=== PATIENT | female | born 1945 | race Caucasian/White ===

== ENCOUNTER → 2016-10-22 | Outpatient (CLI) | payer OTHER, MEDICARE ==
[2016-10-22 17:52] LABS: BLOOD UREA NITROGEN 23 mg/dl (7-18); BUN/CREATININE RATIO 40.5 (10-20); CALCIUM 9.3 mg/dl (8.5-10.1); CARBON DIOXIDE 26 mmol/L (21-32); CHLORIDE 110 mmol/L (98-107); CREATININE 0.57 mg/dl (0.60-1.20); GLUCOSE 93 mg/dl (70-99); POTASSIUM 4.1 mmol/L (3.5-5.1); SODIUM 144 mmol/L (136-145)
== END | disposition home or self-care (01) ==
LOC: C.LABMFLN 08:57
PROVIDERS: ATTEND Family Medicine
DX: I10 Essential (primary) hypertension (principal); E55.9 Vitamin D deficiency, unspecified

== ENCOUNTER → 2017-04-03 | Outpatient (CLI) | payer OTHER, MEDICARE ==
[2017-04-03 18:16] LABS: ALT/SGPT 22 U/L (12-78); AST/SGOT 13 U/L (15-37); BLOOD UREA NITROGEN 20 mg/dl (7-18); BUN/CREATININE RATIO 30.6 (10-20); CALCIUM 8.8 mg/dl (8.5-10.1); CARBON DIOXIDE 28 mmol/L (21-32); CHLORIDE 106 mmol/L (98-107); CREATININE 0.64 mg/dl (0.60-1.20); GLUCOSE 99 mg/dl (70-99); POTASSIUM 4.3 mmol/L (3.5-5.1); SODIUM 139 mmol/L (136-145)
[2017-04-03 18:18] LABS: ALB/GLOB RATIO 1.1 (0.9-2); ALKALINE PHOSPHATASE 118 U/L (45-117)
[2017-04-04 06:34] LABS: ESTIMATED AVERAGE GLUCOSE 128 mg/dl; HA1C FLAG Normal (Normal)
== END | disposition home or self-care (01) ==
LOC: C.LABMFLN 16:06
PROVIDERS: ATTEND Family Medicine
DX: E55.9 Vitamin D deficiency, unspecified (principal); E11.9 Type 2 diabetes mellitus without complications

== ENCOUNTER → 2017-04-19 | Outpatient (CLI) | payer OTHER, MEDICARE ==
--- NOTE | 2017-04-19 12:00 | DIAGNOSTIC IMAGING REPORT ---
CHEST 2 VIEWS ROUTINE CLINICAL HISTORY: Cough. COMPARISON STUDY: No previous studies for comparison. FINDINGS: Lung volumes are normal. No pneumothorax or pleural effusion is present. There is no consolidation to suggest pneumonia. Pulmonary vascularity is normal. Mild cardiomegaly is noted. IMPRESSION: 1. No acute cardiopulmonary findings. 2. Mild cardiomegaly. Electronically signed by: Vin Ayala M.D. 04/19/2017 11:59 AM Dictated Date/Time: 04/19/2017 11:58 AM
== END | disposition home or self-care (01) ==
LOC: C.RAD1850 11:46
PROVIDERS: ATTEND Student in an Organized Health Care Education/Training Program
DX: R05 Cough (principal)

== ENCOUNTER → 2017-05-20 | Outpatient (CLI) | payer OTHER, MEDICARE ==
--- NOTE | 2017-05-21 15:17 | MAMMOGRAPHY REPORT ---
BILATERAL DIGITAL SCREENING MAMMOGRAM TOMOSYNTHESIS WITH CAD: 05/20/2017 CLINICAL HISTORY: Routine screening. TECHNIQUE: Breast tomosynthesis in addition to standard 2D mammography was performed. Current study was also evaluated with a Computer Aided Detection (CAD) system. COMPARISON: No prior exams were available for comparison. BREAST COMPOSITION: There are scattered areas of fibroglandular density in both breasts. FINDINGS: There are scattered benign-appearing microcalcifications in the breasts. No suspicious mas s, architectural distortion or cluster of suspicious microcalcifications is seen. IMPRESSION: ACR BI-RADS CATEGORY 1: NEGATIVE There is no mammographic evidence of malignancy. A 1 year screening mammogram is recommended. The pa tient will receive written notification of the results. Approximately 10% of breast cancers are not detected with mammography. A negative mammographic report should not delay biopsy if a clinically suggestive mass is present. Lacey Hinojosa M.D. ay/:05/20/2017 16:32:31 Senior Information Systems Architect: Kelsy GALINDO(Jay)(Regan), [facility] letter sent: Normal 1/2 BI-RADS Code: ACR BI-RADS Category 1: Negative
== END | disposition home or self-care (01) ==
LOC: C.MAMM 13:28
PROVIDERS: ATTEND Nurse Practitioner Family
DX: Z13.820 Encounter for screening for osteoporosis (principal); Z12.31 Encounter for screening mammogram for malignant neoplasm of breast; M85.88 Other specified disorders of bone density and structure, other site; M85.851 Other specified disorders of bone density and structure, right thigh; M85.852 Other specified disorders of bone density and structure, left thigh

== ENCOUNTER → 2017-12-06 | Outpatient (CLI) | payer OTHER, MEDICARE ==
[2017-12-06 18:08] LABS: ALT/SGPT 26 U/L (12-78); BLOOD UREA NITROGEN 24 mg/dl (7-18); CALCIUM 8.8 mg/dl (8.5-10.1); CARBON DIOXIDE 25 mmol/L (21-32); CREATININE 0.76 mg/dl (0.60-1.20); GLUCOSE 108 mg/dl (70-99); POTASSIUM 4.2 mmol/L (3.5-5.1); SODIUM 141 mmol/L (136-145)
[2017-12-06 18:11] LABS: CHOLESTEROL 137 mg/dl (0-200); LDL CHOLESTEROL (DIRECT) 72 mg/dl
[2017-12-06 18:11] LABS: CREATININE RANDOM URINE 74.2 mg/dl
[2017-12-07 06:37] LABS: HEMOGLOBIN A1C 6.2 % (4.5-5.6)
== END | disposition home or self-care (01) ==
LOC: C.LABMFLN 12:47
PROVIDERS: ATTEND Family Medicine
DX: E78.5 Hyperlipidemia, unspecified (principal); E11.9 Type 2 diabetes mellitus without complications

== ENCOUNTER → 2018-03-07 | Outpatient (CLI) | payer OTHER, MEDICARE ==
[2018-03-07 12:56] LABS: HEMATOCRIT 36.9 % (37-47); HEMOGLOBIN 12.1 g/dL (12.0-16.0)
[2018-03-07 13:21] LABS: BLOOD UREA NITROGEN 24 mg/dl (7-18); CALCIUM 9.4 mg/dl (8.5-10.1); CARBON DIOXIDE 28 mmol/L (21-32); GLUCOSE 98 mg/dl (70-99); POTASSIUM 4.1 mmol/L (3.5-5.1); SODIUM 139 mmol/L (136-145)
== END | disposition home or self-care (01) ==
LOC: C.LABMFLN 09:48
PROVIDERS: ATTEND Family Medicine
DX: I10 Essential (primary) hypertension (principal); I48.0 Paroxysmal atrial fibrillation

== ENCOUNTER 2019-06-23 14:46 | Inpatient (IN) ==
[2019-06-23 15:42] LABS: Appearance Urine Clear (Clear); Bacteria Urine Automated Negative (Negative); Bilirubin Urine Negative (Negative); Blood Urine Negative (Negative); Color Urine Yellow; Glucose Urine UA Negative (Negative); Ketones Urine Negative (Negative); Leukocyte Esterase Urine Trace (Negative); Nitrite Urine Negative (Negative); Protein Urine Negative (Negative); RBC Urine Automated 0-4 /hpf (0-4); Specific Gravity Urine 1.014 (1.000-1.030); Urobilinogen Urine Negative (Negative)
[2019-06-23 15:50] LABS: Basophils # (auto) 0.06 K/uL (0-0.2); Basophils % (auto) 0.8 %; Eosinophils # (auto) 0.23 K/uL (0-0.5); Eosinophils % (auto) 3.1 %; Hematocrit (blood only) 34.8 % (37-47); Hemoglobin 11.3 g/dL (12.0-16.0); Immature Granulocytes # (auto) 0.04 K/uL (0.00-0.02); Immature Granulocytes % (auto) 0.5 %; Lymphocytes # (auto) 1.38 K/uL (1.2-3.4); Lymphocytes % (auto) 18.4 %; Mean Corpuscular Hemoglobin 28.1 pg (25-34); Mean Corpuscular Hgb Conc 32.5 g/dL (32-36); Mean Corpuscular Volume 86.6 fL (80-100); Mean Platelet Volume 9.8 fL (7.4-10.4); Monocytes # (auto) 0.72 K/uL (0.11-0.59); Monocytes % (auto) 9.6 %; Neutrophils # (auto) 5.07 K/uL (1.4-6.5); Neutrophils % (auto) 67.6 %; Platelet Count 358 K/uL (130-400); RDW Coefficient of Variation 14.9 % (11.5-14.5); RDW Standard Deviation 47.9 fL (36.4-46.3); Red Blood Count 4.02 M/uL (4.2-5.4)
[2019-06-23 16:08] LABS: BUN Creatinine Ratio 30.6 (10-20); Calcium 9.9 mg/dl (8.5-10.1); Creatinine Clr Calc Pharmacy 33.2 ml/min; Est GFR (African American) 39.1; Est GFR (Non-African American) 33.7; Potassium 3.8 mmol/L (3.5-5.1)
[2019-06-23 16:12] LABS: Acetaminophen < 2 ug/ml (10-30); Salicylate < 1.7 mg/dl (2.8-20)
[2019-06-23 16:16] LABS: Amphetamines+Metham, Urine Neg (Neg); Barbiturates, Urine Neg (Neg); Benzodiazepine, Urine Neg (Neg); Cocaine, Urine Neg (Neg); MDMA (Ecstacy), Urine Pos (Neg); Methadone, Urine Neg (Neg); Opiate, Urine Neg (Neg); Phencyclidine, Urine Neg (Neg)
[2019-06-23 16:18] LABS: Albumin Globulin Ratio 1.2 (0.9-2); Bilirubin,Total 0.5 mg/dl (0.2-1); Globulin 3.4 gm/dl (2.5-4.0); Thyroid Stimulating Hormone 2.69 uIu/ml (0.300-4.500); Total Protein 7.4 gm/dl (6.4-8.2)
--- NOTE | 2019-06-23 16:30 | Emergency Department Note ---
Entered by Kraen Flanagan acting as a scribe for Cabrera Holland M.D. History of Present Illness General Chief complaint: Psychiatric Symptoms/Problems Stated complaint: BIPOLAR Time Seen by Provider: 06/23/19 15:09 Source: patient History of Present Illness Onset (ago): day(s) (several) Location: head (general) Pain Consistency: + other (worsening) Quality: + other (depression) Associated symptoms: + other (positive suicidal statements of not wanting to be here; positive imagining and mother are next to her) The patient is a 73 year old female with PMHx of CKD stage 3, CAD, Diabetes, Bipolar disorder who presents to the Emergency Room with complaints of worsening depression that began several days ago. The patient states that she has been stressed out recently stating that her and her are after 53 years of marriage. She states "I wish I would just go away and never come back" and "I don't want to be here". The patient reports that she has not been getting sleep. She states that recently when she is waking up she imagines that her is next to her in bed but states that when she wakes up he is not there. The patient states that this also happens with her mother who several years ago. The patient states "nobody's here for me". Home Medications Home Medications Medication Instructions Recorded Confirmed Type nitroglycerin 0.4 mg sublingual 0.4 mg SL Q5M PRN #20 tab 01/15/19 06/23/19 Rx tablet sucralfate 1 gram tablet 1 gm PO QID tab 02/23/19 06/23/19 History amlodipine 5 mg tablet 5 mg PO BID #180 tab 02/27/19 06/23/19 Rx bupropion HCl 100 mg tablet,12 hr 100 mg PO BID #60 ea 04/08/19 06/23/19 Rx sustained-release cyanocobalamin (vitamin B-12) 1,000 mcg PO DAILY #90 tab 04/08/19 06/23/19 Rx 1,000 mcg tablet,extended release ergocalciferol (vitamin D2) 50,000 50,000 units PO .COMPLEX #12 cap 04/08/19 06/23/19 Rx unit capsule glipizide 5 mg tablet, extended 5 mg PO DAILY #30 tab 04/08/19 06/23/19 Rx release 24 hr lamotrigine 100 mg tablet 250 mg PO HS #75 tab 04/08/19 06/23/19 Rx insulin glargine 100 unit/mL (3 12 units SQ DAILY #6 ml 04/10/19 06/23/19 Rx mL) subcutaneous pen hydroxyzine pamoate 25 mg capsule 25 mg PO Q6H #30 cap 05/04/19 06/23/19 Rx pantoprazole 40 mg tablet,delayed 40 mg PO DAILY #30 tab 05/06/19 06/23/19 Rx release escitalopram oxalate 20 mg tablet 20 mg PO HS tab 06/19/19 06/23/19 History fenofibrate 160 mg PO DAILY 06/23/19 06/23/19 History gabapentin 200 mg PO HS 06/23/19 06/23/19 History losartan 100 mg PO QAM 06/23/19 06/23/19 History metoprolol succinate 100 mg PO BID 06/23/19 06/23/19 History pravastatin 20 mg PO QPM 06/23/19 06/23/19 History propranolol [Inderal LA] 60 mg PO DAILY 06/23/19 06/23/19 History ropinirole 0.25 mg PO QAM 06/23/19 06/23/19 History ropinirole 0.5 mg PO HS 06/23/19 06/23/19 History torsemide 20 mg PO DAILY 06/23/19 06/23/19 History warfarin 4 mg PO HS 06/23/19 06/23/19 History Allergies Allergy/AdvReac Type Severity Reaction Status Date / Time acetaminophen [From Vicodin] Allergy Intermediate itching Verified 06/19/19 1 3:46 hydrocodone [From Vicodin] Allergy Intermediate itching Verified 06/19/19 13:46 albuterol Allergy Unknown Verified 06/19/19 13:46 pregabalin [From Lyrica] Allergy Unknown Verified 06/19/19 13:46 quetiapine [From Seroquel] AdvReac Severe hysterical Verified 06/19/19 13:46 carbamazepine [From Tegretol] AdvReac Unknown elevated Verified 06/19/19 13:46 hepatic enzymes divalproex sodium AdvReac Unknown tremor Verified 06/19/19 13:46 [From Depakote] lithium AdvReac tremor Verified 06/19/19 13:46 trazodone AdvReac Fatigued Verified 06/19/19 13:46 Demerol TABS Allergy Unknown Uncoded 06/19/19 13:46 Past Med/Surg History Medical History Adenomatous colon polyp Bipolar disorder Coronary artery disease Diabetes mellitus Hypercholesterolemia Restless leg syndrome Sleep apnea Stage 3 chronic kidney disease due to diabetes mellitus Vitamin D deficiency Surgical History H/O cardiac catheterization H/O hysterectomy for benign disease History of incisional hernia repair Status post appendectomy Status post cholecystectomy Status post colonoscopy with polypectomy Family History Other Adopted Social History Preferred Language: Kazakh Communication Ability: Effective Sales And Marketing Analyst Required: No Beliefs That Will Affect Care: Mandaen marital status: marital status details: Current Living Situation: Alone current occupational status: retired Feels Safe at Home: Yes Smoking Status: Never smoker Second Hand Exposure: No ; Hx Alcohol Use: No Hx Substance Use: No Childhood Exposure to Second-Hand Smoke: Yes caffeine: Yes Dental Care, Regularly: Yes Physical Activity Frequency: Daily Seatbelt Use: always Sunscreen Use: Yes Review of Systems See HPI for pertinent positives & negatives. and A total of 10 systems reviewed and were otherwise negative Physical Exam Vital Signs Vital Signs - 24 hr 06/23/19 14:52 06/23/19 17:16 Temperature 36.8 C Temperature Source Oral Pulse Rate 70 Pulse Rate [Right Finger] 70 Respiratory Rate 18 18 Respiratory Effort / Characteristics Non-Labored Respiratory Depth Normal Blood Pressure 149/75 H Blood Pressure [Right Arm] 140/70 Blood Pressure Mean 99 Blood Pressure Mean [Right Arm] 93 Blood Pressure Position Sitting Pulse Oximetry 97 98 Oxygen Delivery Method Room Air Sepsis Recent Fever Within 48 Hours No Sepsis New/Unexplained Change in Mental Status No Sepsis Action Taken by Nursing No Action Required GENERAL: Tearful, anxious, crying. Awake, alert. HENT: Normocephalic, atraumatic. EYES: Normal conjunctiva. Sclera non-icteric. RESPIRATORY: Clear to auscultation. Normal respiratory effort. CARDIAC: Normal rate. Normal rhythm. Extremities warm and well perfused. GI: Soft, non-distended. No tenderness to palpation. No rebound or guarding. LOWER EXTREMITIES: Calves are equal size bilaterally and non-tender. No edema NEURO: Normal sensorium. No sensory or motor deficits noted. No facial droop. PSYCH: Passive suicidal thoughts. Denies HI or auditory/visual hallucination. Anxious, tearful. SKIN: Warm and dry. No rash or jaundice noted. Course Course 152: Past medical records reviewed. The patient was evaluated in room A8. A com plete history and physical exam was performed. 1812: I discussed the case with the psychiatric case manger after her evaluation of the patient, and she reports that the patient has been accepted to [address] [place] [address] for further evaluation. 1819: The patient will be transported to [address] [place] [address] for further evaluation. Medical Decision Making Differential Diagnosis Differential diagnoses considered include mood disorder, infection, hypoglycemia, electrolyte abnormalities, cardiac sources, intracerebral event, toxicologic, neurologic, as well as others. Medical Records Attestation: I reviewed the patient's medical records. Home Medications Current Medication List: was personally reviewed by me Laboratory Data Attestation: I reviewed the patient's lab results. Result diagrams: 06/23/19 15:34 06/23/19 15:34 Lab Results 06/23/19 06/23/19 06/23/19 Range/Units 15:16 15:16 15:34 WBC 7.50 (4.8-10.8) K/uL RBC 4.02 L (4.2-5.4) M/uL Hgb 11.3 L (12.0-16.0) g/dL Hct 34.8 L (37-47) % MCV 86.6 (80-100) fL MCH 28.1 (25-34) pg MCHC 32.5 (32-36) g/dL RDW Std Deviation 47.9 H (36.4-46.3) fL RDW Coeff of García 14.9 H (11.5-14.5) % Plt Count 358 (130-400) K/uL MPV 9.8 (7.4-10.4) fL Immature Gran % (Auto) 0.5 % Neut % (Auto) 67.6 % Lymph % (Auto) 18.4 % [place] % (Auto) 9.6 % Eos % (Auto) 3.1 % Baso % (Auto) 0.8 % Immature Gran # (Auto) 0.04 H (0.00-0.02) K/uL Neut # (Auto) 5.07 (1.4-6.5) K/uL Lymph # (Auto) 1.38 (1.2-3.4) K/uL [place] # (Auto) 0.72 H (0.11-0.59) K/uL Eos # (Auto) 0.23 (0-0.5) K/uL Baso # (Auto) 0.06 (0-0.2) K/uL Sodium (136-145) mmol/L Potassium (3.5-5.1) mmol/L Chloride (98-107) mmol/L Carbon Dioxide (21-32) mmol/L Anion Gap (3-11) BUN (7-18) mg/dl Creatinine (0.6-1.2) mg/dl Est Cr Clr Drug Dosing ml/min Est GFR ( Amer) Est GFR (Non-Af Amer) BUN/Creatinine Ratio (10-20) Glucose (70-99) mg/dl Calcium (8.5-10.1) mg/dl Total Bilirubin (0.2-1) mg/dl AST (15-37) U/L ALT (12-78) U/L Alkaline Phosphatase (45-117) U/L Total Protein (6.4-8.2) gm/dl Albumin (3.4-5.0) gm/dl Globulin (2.5-4.0) gm/dl Albumin/Globulin Ratio (0.9-2) TSH (0.300-4.500) uIu/ml Urine Color Yellow Urine Appearance Clear (Clear) Urine pH 5.0 (4.5-7.5) Ur Specific [place] 1.014 (1.000-1.030) Urine Protein Negative (Negative) Urine Glucose (UA) Negative (Negative) Urine Ketones Negative (Negative) Urine Blood Negative (Negative) Urine Nitrite Negative (Negative) Urine Bilirubin Negative (Negative) Urine Urobilinogen Negative (Negative) Ur Leukocyte Esterase Trace H (Negative) Urine WBC (Auto) 1-5 (0-5) /hpf Urine RBC (Auto) 0-4 (0-4) /hpf U Hyaline Cast (Auto) 1-5 (0-5) /lpf U Epithel Cells (Auto) 5-10 H (0-5) /lpf Urine Bacteria (Auto) Negative (Negative) Salicylates (2.8-20) mg/dl Urine Opiates Screen Neg (Neg) Ur Methadone, Qual Neg (Neg) Acetaminophen (10-30) ug/ml Urine Barbiturates Neg (Neg) Ur Phencyclidine (PCP) Neg (Neg) U Amphetamin/Meth Scrn Neg (Neg) MDMA (Ecstasy) Screen Pos H (Neg) U Benzodiazepines Scrn Neg (Neg) Ur Cocaine Metabolite Neg (Neg) U Marijuana (THC) Screen Neg (Neg) Ethyl Alcohol mg/dL (0-3) mg/dl 06/23/19 06/23/19 06/23/19 Range/Units 15:34 15:34 15:34 WBC (4.8-10.8) K/uL RBC (4.2-5.4) M/uL Hgb (12.0-16.0) g/dL Hct (37-47) % MCV (80-100) fL MCH (25-34) pg MCHC (32-36) g/dL RDW Std Deviation (36.4-46.3) fL RDW Coeff of García (11.5-14.5) % Plt Count (130-400) K/uL MPV (7.4-10.4) fL Immature Gran % (Auto) % Neut % (Auto) % Lymph % (Auto) % [place] % (Auto) % Eos % (Auto) % Baso % (Auto) % Immature Gran # (Auto) (0.00-0.02) K/uL Neut # (Auto) (1.4-6.5) K/uL Lymph # (Auto) (1.2-3.4) K/uL [place] # (Auto) (0.11-0.59) K/uL Eos # (Auto) (0-0.5) K/uL Baso # (Auto) (0-0.2) K/uL Sodium 139 (136-145) mmol/L Potassium 3.8 (3.5-5.1) mmol/L Chloride 104 (98-107) mmol/L Carbon Dioxide 27 (21-32) mmol/L Anion Gap 8.0 (3-11) BUN 46 H (7-18) mg/dl Creatinine 1.51 H (0.6-1.2) mg/dl Est Cr Clr Drug Dosing 33.2 ml/min Est GFR ( Amer) 39.1 Est GFR (Non-Af Amer) 33.7 BUN/Creatinine Ratio 30.6 H (10-20) Glucose 107 H (70-99) mg/dl Calcium 9.9 (8.5-10.1) mg/dl Total Bilirubin 0.5 (0.2-1) mg/dl AST 12 L (15-37) U/L ALT 17 (12-78) U/L Alkaline Phosphatase 59 (45-117) U/L Total Protein 7.4 (6.4-8.2) gm/dl Albumin 4.0 (3.4-5.0) gm/dl Globulin 3.4 (2.5-4.0) gm/dl Albumin/Globulin Ratio 1.2 (0.9-2) TSH 2.690 (0.300-4.500) uIu/ml Urine Color Urine Appearance (Clear) Urine pH (4.5-7.5) Ur Specific [place] (1.000-1.030) Urine Protein (Negative) Urine Glucose (UA) (Negative) Urine Ketones (Negative) Urine Blood (Negative) Urine Nitrite (Negative) Urine Bilirubin (Negative) Urine Urobilinogen (Negative) Ur Leukocyte Esterase (Negative) Urine WBC (Auto) (0-5) /hpf Urine RBC (Auto) (0-4) /hpf U Hyaline Cast (Auto) (0-5) /lpf U Epithel Cells (Auto) (0-5) /lpf Urine Bacteria (Auto) (Negative) Salicylates < 1.7 L (2.8-20) mg/dl Urine Opiates Screen (Neg) Ur Methadone, Qual (Neg) Acetaminophen < 2 L (10-30) ug/ml Urine Barbiturates (Neg) Ur Phencyclidine (PCP) (Neg) U Amphetamin/Meth Scrn (Neg) MDMA (Ecstasy) Screen (Neg) U Benzodiazepines Scrn (Neg) Ur Cocaine Metabolite (Neg) U Marijuana (THC) Screen (Neg) Ethyl Alcohol mg/dL < 3.0 (0-3) mg/dl ECG Data Attestation: I personally reviewed and interpreted this ECG as follows: Indication: + other (medical clearance ) Rate (beats per minute): 65 Rhythm: + normal sinus ECG [place]: + Normal ECG ST segments: no ST depression and no ST elevation ECG Findings: + Other (LVH); no PVCs Blood Pressure Blood Pressure Findings: Elevated blood pressure Blood Pressure Disposition: elevated BP felt to be situational MDM Narrative Patient is a 73-year-old female history of diabetes and cardiac disease as well as bipolar presenting today due to worsening depression and suicidal thoughts. Patient referred by her outpatient doctor Dr. Nelson. Patient endorses depressive thoughts but states she never harm herself. Has had passive suicidal thoughts. Denies HI. Patient does relate that occasionally she feels like there might be somebody else with her but she does not see or hear any hallucinations. Medical clearance was completed here. Labs and EKG without significant change in kidney function appears at baseline. grain manager assisted with evaluation. Referral to [facility] was made. Patient accepted for further care there for her mental health condition. Impression & Plan Suicidal ideation, Depression Discharge Plan Visit Data *Final* Discharge Date/Time: 06/23/19 18:25 Chief Complaint: Psychiatric Symptoms/Problems Stated Complaint: BIPOLAR ED Provider: Cabrera Holland Discharge Problem: Suicidal ideation, Depression Patient Disposition: Admitted As Inpatient Condition: Good Discharge Instructions Interventions: ED Discharge Assessment Last Done: 06/23/19 18:25 Discharge Problem: Depression Qualifiers: Depression Type: major depressive disorder Major depression recurrence: recurrent Active/Remission status: currently active Major depression episode severity: severe Psychotic features: without psychotic features Qualified Code(s): F33.2 - Major depressive disorder, recurrent severe without psychotic features The mukeshibe's documentation has been prepared under my direction and personally reviewed by me in its entirety. I confirm that the note above accurately reflects all work, treatment, procedures, and medical decision making performed by me.
[2019-06-23] MEDS ORDERED: BISMUTH SUBSALICYLATE PER ML OMNICELL CHARGE PO PRN (18:30)
[2019-06-23] MEDS ORDERED: ALUMINUM/MAGNESIUM SUSP 30 ML UDC PO PRN (18:30)
[2019-06-23] MEDS ORDERED: ACETAMINOPHEN 325 MG TAB PO PRN (18:30)
[2019-06-23] MEDS ORDERED: SODIUM CHLORIDE 0.65% NA SOLN 45 ML (OCEAN) PRN (18:30)
[2019-06-23] MEDS ORDERED: MAGNESIUM HYDROXIDE SUSP 30 ML UDC PO PRN (18:30)
[2019-06-23] MEDS ORDERED: NITROGLYCERIN SL 0.4 MG/TAB TAB SL PRN (18:34)
[2019-06-23] MEDS ORDERED: GLUCAGON FOR INJ 1 MG VIAL IM PRN (19:45)
[2019-06-23] MEDS ORDERED: GLUCOSE 40% GEL 15 GM TUBE PO PRN (19:45)
[2019-06-23] MEDS ORDERED: DEXTROSE 50% 50 ML SYRINGE IV PRN (19:45)
[2019-06-23] MEDS ORDERED: CARBOHYDRATES FOR HYPOGLYCEMIA PO PRN (19:45)
[2019-06-23] MEDS ORDERED: GLUCOSE 10 TABS/TUBE PO PRN (19:45)
[2019-06-23 19:55] LABS: INR 2.3 (0.9-1.1); Prothrombin Time 21.8 Seconds (9.0-12.0)
[2019-06-23] MEDS: PRAVASTATIN SOD 20 MG TAB PO SCH (20:53)
[2019-06-23] MEDS: WARFARIN SOD 4 MG TAB PO SCH (20:53)
[2019-06-23] MEDS: FENOFIBRATE NANOCRYSTALLIZED 145 MG TABLET PO SCH (20:53)
[2019-06-23] MEDS: GABAPENTIN 100 MG CAP PO SCH (20:53)
[2019-06-23] MEDS: ESCITALOPRAM OXALATE 20 MG TAB PO SCH (20:54)
[2019-06-23] MEDS: METOPROLOL SUCC 50MG EXT REL TAB PO SCH (20:54)
[2019-06-23] MEDS: lamoTRIgine 100 MG TAB PO SCH (20:54)
[2019-06-23] MEDS: ROPINIROLE HCL 0.25 MG TABLET PO SCH (20:55)
[2019-06-23] MEDS: SUCRALFATE 1 GM TAB PO SCH ×2 (20:55→21:06)
[2019-06-23] MEDS: AMLODIPINE BESYLATE 5 MG TAB PO SCH (20:55)
[2019-06-23] MEDS: INSULIN GLARGINE SOLOSTAR 100 UNITS/ML 3 ML PEN SQ SCH (20:57)
[2019-06-24 07:45] LABS: Prothrombin Time 19.3 Seconds (9.0-12.0)
[2019-06-24] MEDS: SUCRALFATE 1 GM TAB PO SCH ×4 (08:18→21:30)
[2019-06-24] MEDS: FENOFIBRATE NANOCRYSTALLIZED 145 MG TABLET PO SCH (08:18)
[2019-06-24] MEDS: LOSARTAN POTASSIUM 50 MG TAB PO SCH (08:18)
[2019-06-24] MEDS: TORSEMIDE 10 MG TAB PO SCH (08:19)
[2019-06-24] MEDS: glipiZIDE ER 2.5 MG TABCR PO SCH (08:19)
[2019-06-24] MEDS: METOPROLOL SUCC 50MG EXT REL TAB PO SCH ×2 (08:20→21:30)
[2019-06-24] MEDS: PROPRANOLOL HCL 60 MG LA CAP PO SCH (08:20)
[2019-06-24] MEDS: PANTOprazole 40 MG TAB PO SCH (08:20)
[2019-06-24] MEDS: AMLODIPINE BESYLATE 5 MG TAB PO SCH ×2 (08:20→21:30)
[2019-06-24] MEDS: ROPINIROLE HCL 0.25 MG TABLET PO SCH ×2 (08:20→21:27)
[2019-06-24] MEDS: BuPROPion SR 100 MG TABCR PO SCH ×2 (08:21→17:35)
[2019-06-24] MEDS: CYANOCOBALAMIN 500 MCG TABLET (VITAMIN B-12) PO SCH (08:21)
[2019-06-24] MEDS ORDERED: INSULIN GLARGINE SOLOSTAR 100 UNITS/ML 3 ML PEN SQ SCH (09:00)
--- NOTE | 2019-06-24 10:43 | History & Physical ---
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 Phencyclidine (PCP) U Amphetamin/Meth Scrn MDMA (Ecstasy) Screen U MDMA (Ecstasy), Quant U Benzodiazepines Scrn Ur Cocaine Metabolite U Marijuana (THC) Screen Ethyl Alcohol mg/dL Current Inpatient Medications Current Inpatient Medications: Current Inpatient Medications Al Hydrox/Mg Hydrox/Simethicone (Maalox) 30 ml PO Q4H PRN PRN Reason: GI Upset Stop: 07/23/19 18:29 Amlodipine Besylate (Norvasc) 5 mg PO BID JT Stop: 07/23/19 20:59 Last Admin: 06/24/19 08:20 Dose: 5 mg Documented by: Bupropion HCl (Wellbutrin-Sr) 100 mg PO BIDM JT Stop: 07/24/19 07:59 Last Admin: 06/24/19 08:21 Dose: 100 mg Documented by: Cyanocobalamin (Vitamin B-12) 1,000 mcg PO DAILY JT Stop: 07/24/19 08:59 Last Admin: 06/24/19 08:21 Dose: 1,000 mcg Documented by: Dextrose (Dextrose 50%) 25 - 50 ml IV UD PRN; Protocol PRN Reason: Hypoglycemia Protocol Stop: 07/23/19 19:44 Ergocalciferol (Vitamin D2) 50,000 units PO Mo@0900 [facility] Stop: 07/29/19 08:59 Escitalopram Oxalate (Lexapro Tab) 20 mg PO HS JT Stop: 07/23/19 20:59 Last Admin: 06/23/19 20:54 Dose: 20 mg Documented by: Fenofibrate (Tricor) 145 mg PO DAILY JT Stop: 07/23/19 19:59 Last Admin: 06/24/19 08:18 Dose: 145 mg Documented by: Gabapentin (Neurontin) 200 mg PO HS [facility] Stop: 07/23/19 20:59 Last Admin: 06/23/19 20:53 Dose: 200 mg Documented by: Glipizide (Glucotrol Extended Rel) 5 mg PO QDB JT Stop: 07/24/19 08:59 Last Admin: 06/24/19 08:19 Dose: 5 mg Documented by: Glucagon (Glucagen) 1 mg IM UD PRN; Protocol PRN Reason: Hypoglycemia Protocol Stop: 07/23/19 19:44 Glucose (Glucose 40%) 15 - 30 gm PO UD PRN; Protocol PRN Reason: Hypoglycemia Protocol Stop: 07/23/19 19:44 Glucose (Dex4 Glucose) 4 - 8 tabs PO UD PRN; Protocol PRN Reason: Hypoglycemia Protocol Stop: 07/23/19 19:44 Hydroxyzine HCl (Vistaril) 50 mg PO HSZ PRN PRN Reason: Insomnia Stop: 07/23/19 18:29 Hydroxyzine HCl (Vistaril) 25 mg PO Q4H PRN PRN Reason: Anxiety Stop: 07/23/19 21:28 Insulin Glargine (Lantus Solostar Pen) 12 units SQ QPM JT Stop: 07/23/19 20:59 Last Admin: 06/23/19 20:57 Dose: 12 units Documented by: Lamotrigine (Lamictal) 250 mg PO HS [facility] Stop: 07/23/19 20:59 Last Admin: 06/23/19 20:54 Dose: 250 mg Documented by: Losartan Potassium (Cozaar) 100 mg PO QAM [facility] Stop: 07/24/19 08:59 Last Admin: 06/24/19 08:18 Dose: 100 mg Documented by: Magnesium Hydroxide (Milk Of Magnesia) 30 ml PO DAILY PRN PRN Reason: Constipation Stop: 07/23/19 18:29 Metoprolol Succinate (Toprol Xl) 100 mg PO BID [facility] Stop: 07/23/19 20:59 Last Admin: 06/24/19 08:20 Dose: 100 mg Documented by: Miscellaneous (Carbohydrates For Hypoglycemia) 15 - 30 gm PO UD PRN PRN Reason: Hypoglycemia Treatment Stop: 07/23/19 19:44 Nitroglycerin (Nitrostat) 0.4 mg SL Q5M PRN PRN Reason: chest pain Stop: 07/23/19 18:33 Pantoprazole Sodium (Protonix) 40 mg PO DAILY [facility] Stop: 07/24/19 08:59 Last Admin: 06/24/19 08:20 Dose: 40 mg Documented by: Pravastatin Sodium (Pravachol) 20 mg PO QPM JT Stop: 07/23/19 20:59 Last Admin: 06/23/19 20:53 Dose: 20 mg Documented by: Propranolol HCl (Inderal La) 60 mg PO DAILY JT Stop: 07/24/19 08:59 Last Admin: 06/24/19 08:20 Dose: 60 mg Documented by: Ropinirole HCl (Requip) 0.25 mg PO QAM JT Stop: 07/24/19 08:59 Last Admin: 06/24/19 08:20 Dose: 0.25 mg Documented by: Ropinirole HCl (Requip) 0.5 mg PO HS [facility] Stop: 07/23/19 20:59 Last Admin: 06/23/19 20:55 Dose: 0.5 mg Documented by: Sodium Chloride ([place] Nasal) 1 - 2 sprays NA PRN PRN PRN Reason: Nasal Dryness/Congestion Stop: 07/23/19 18:29 Sucralfate (Carafate Tab) 1 gm PO ACHS JT Stop: 07/23/19 20:59 Last Admin: 06/24/19 08:18 Dose: 1 gm Documented by: Torsemide (Demadex) 20 mg PO DAILY JT Stop: 07/24/19 08:59 Last Admin: 06/24/19 08:19 Dose: 20 mg Documented by: Warfarin Sodium (Coumadin) 4 mg PO HS JT Stop: 07/23/19 20:59 Last Admin: 06/23/19 20:53 Dose: 4 mg Documented by:
[2019-06-24] MEDS: GABAPENTIN 100 MG CAP PO SCH (21:27)
[2019-06-24] MEDS: lamoTRIgine 100 MG TAB PO SCH (21:27)
[2019-06-24] MEDS: ESCITALOPRAM OXALATE 20 MG TAB PO SCH (21:27)
[2019-06-24] MEDS: WARFARIN SOD 4 MG TAB PO SCH (21:29)
[2019-06-24] MEDS: PRAVASTATIN SOD 20 MG TAB PO SCH (21:30)
[2019-06-24] MEDS: INSULIN GLARGINE SOLOSTAR 100 UNITS/ML 3 ML PEN SQ SCH (21:32)
[2019-06-25 06:47] LABS: INR 2.2 (0.9-1.1); Prothrombin Time 21.1 Seconds (9.0-12.0)
[2019-06-25] MEDS: TORSEMIDE 10 MG TAB PO SCH (08:54)
[2019-06-25] MEDS: LOSARTAN POTASSIUM 50 MG TAB PO SCH (08:54)
[2019-06-25] MEDS: SUCRALFATE 1 GM TAB PO SCH ×4 (08:54→20:49)
[2019-06-25] MEDS: glipiZIDE ER 2.5 MG TABCR PO SCH (08:54)
[2019-06-25] MEDS: FENOFIBRATE NANOCRYSTALLIZED 145 MG TABLET PO SCH (08:55)
[2019-06-25] MEDS: PANTOprazole 40 MG TAB PO SCH (08:55)
[2019-06-25] MEDS: AMLODIPINE BESYLATE 5 MG TAB PO SCH ×2 (08:55→20:43)
[2019-06-25] MEDS: ROPINIROLE HCL 0.25 MG TABLET PO SCH ×2 (08:55→20:48)
[2019-06-25] MEDS: METOPROLOL SUCC 50MG EXT REL TAB PO SCH ×2 (08:55→20:44)
[2019-06-25] MEDS: PROPRANOLOL HCL 60 MG LA CAP PO SCH (08:55)
[2019-06-25] MEDS: CYANOCOBALAMIN 500 MCG TABLET (VITAMIN B-12) PO SCH (08:56)
[2019-06-25] MEDS: BuPROPion SR 100 MG TABCR PO SCH ×2 (08:56→17:54)
--- NOTE | 2019-06-25 13:06 | Psychiatric Progress Note ---
Date of Service June 25, 2019 Impression / Recommendations Impression 73-year-old female with a history of bipolar disorder, generalized anxiety disorder, cognitive disorder NOS, and multiple medical problems who presents with decompensated mood and anxiety in the context of feelings of abandonment after she and her 2 years ago. He now has a new girlfriend, which has been the predominant trigger for her recent mood symptoms, and she has additional stressors including financial, housing, and transportation. She has been isolating at home, reports poor social supports, and her multiple medical conditions have been deteriorating as well. She descr ibes frequent abrupt mood changes, crying spells, poor self-esteem, loneliness, hopelessness, and a wish to be "gone." She has struggled with loss, both the of her mother and separation in her marriage, and borderline and dependent traits have been noted. She does have a good alliance with her therapist whom she has been seeing for years, and would benefit from increased supports in a plan to increase structure and socialization. She elected to retire this past spring as her symptoms were making it difficult for her to function at work, and although anxiety initially improved, she is now struggling in part due to the lack of social interaction. She has cognitive impairment as well which worsens when emotionally distraught, and has been unable to care for herself at home, missing doses of medications, displaying memory problems, and although recognizes she is not safe to drive, drove from [place] to [place]. Inpatient treatment is medically necessary due to the severity of her symptoms and risk for harm if discharged prematurely. (1) Bipolar disorder: 06/24 - Continue escitalopram 20 mg, lamotrigine 250 mg at bedtime, and bupropion SR 100 mg twice daily. She was recently switched from citalopram to escitalopram after discussion with her PCP, due to cardiac risk. -Have considered alternative mood stabilizers/medications to target bipolar depression including lithium and atypical antipsychotics, but concerns include multiple unstable medical comorbidities, difficulties with medication adherence, and cognitive impairment. She had worsening tremor on lithium, and side effects with aripiprazole and quetiapine. She has not had a trial of lurasidone, which would be reasonable to consider. I do think there is an [place] II component to her mood symptoms as well, I would like to try addressing current decompensation through nonpharmacologic methods prior to changing medications due to aforementioned concerns. -Care coordinated with her outpatient therapist, Annette Rousseau -next appointment is 07/01/2019 at 10 AM. Recommend referral for a blended case management, to increase supports in her area, and explore options for transportation. 06/25 -Long-standing bipolar diagnosis. No med changes admission and will continue to monitor for another 24 hours before we consider additional pharmacotherapy. Patient unfortunately is a fairly poor historian guarding prior psychiatric treatment. I agree with Dr. Nelson that he does appear likely a long-standing cluster B personality component to her mood instability and feelings of abandonment likely recently exacerbated related to her 's new relationship (2) Generalized anxiety disorder: 06/24 -continue SSRI and hydroxyzine 25 mg 3 times daily as needed anxiety. Work on healthy coping skills and ways to manage anxiety. She has benefited from doing daily devotion/journaling before. (3) Cognitive disorder: 06/24 -has seen a neurologist, Dr. Mayen, in [place]. Had a brain MRI which showed microvascular change, EEG showed evidence of encephalopathy. Cognitive function clearly worsens when she is decompensated psychiatrically, and she was previously on benzodiazepines which have since been tapered off. Her initial MOCA in 11/2018 was 17/30, and in 12/2018 was 23/30. Centrally acting medications had been reduced and anxiety was improved at that time. -Will recheck MOCA here once anxiety is under better control. -Patient agrees not to drive until she has stabilized both medically and psychiatrically. 06/25 -Patient reports she is being followed by neurology in [place]. Presently I am uncertain of most recent neuroimaging results however it appears she has known history of microvascular changes. She certainly has risk factors for cerebrovascular disease. Lower extremity movements have a choreiform character. Consider possibility of late onset [place]'s chorea particularly as family history is unknown related to symptom cluster of chorea, personality change, mood lability, executive dysfunction, mild cognitive impairment. Would be helpful to review if evidence of caudate atrophy on imaging. - requip dose is low however, in combination w/ long standing wellbutrin, consider possibility of contribution to problematic activation (4) Accentuation of personality traits: Borderline and dependent traits. Work on healthy coping skills (5) Hypercholesterolemia: Continue home dose of TriCor (6) Diabetes mellitus: 06/24 - Diabetic diet, continue insulin, consult diabetic pharmacist and educator at patient's request (7) Restless leg syndrome: Continue Requip and gabapentin at bedtime (8) Vitamin D deficiency: Continue supplementation (9) Coronary artery disease: Continue metoprolol XL, Norvasc, propanolol, and Cozaar (10) Warfarin anticoagulation: Continue home dose of Coumadin, and check INR daily. 2.3 on admission, 2.0 today. 06/25 - INR 2.2 Inventory Assets Strengths: Supportive family, has outpatient providers Needs: Increase supports and structure Risk Factors Assessment Male: No : Yes Do You Have Access To A Gun?: No Health Problems: Yes Mental Health Diagnoses: Yes Substance Use Disorders: No Previous Attempt: Yes Family History of Suicide: No Previous Psychiatric Hospitalization: Yes Hopelessness: Yes Smoker: No Protective Factors Assessment Islam Beliefs: Yes : Yes (But and has a new girlfriend) Responsible for Young Children: No Employed: No Stable Relationships: No Supportive Family: Yes Good Rapport with Provider: Yes Interval History Chief Complaint "I do not want to be here. It hurts too much". Review of Systems Sleep Information Total Hours of Sleep: 7.75 Sleep Comments: pt on q-15 minute checks Meal Information Percent Meal Consumed - Breakfast: 100 Percent Meal Consumed - Lunch: 100 Percent Meal Consumed - Dinner: 80 Nutrition Comment: per meal log Subjective Subjective Patient was seen & assessed and interval progress reviewed with treatment team. Patient was admitted on a 201. She is an outpatient of my colleague, Dr. Nelson. No medication changes made at time of admission. Dr. Nelson indicated desire to see if conservative intervention would be sufficient as patient has demonstrated some improvement in her cognitive functioning with recent tapering of sedating medication. As per HPI on admission, patient is having more difficulty with memory and family has expressed concern for her ability to care for herself at home. Patient describes feeling "pretty bad" today and demonstrates lability of affect and abrupt tearfulness. She describes a long history of mood instability. She sounds to have a history of difficult childhood experience, adopted as an and raised by parents who drank excessively and told her that she was not their child. More recently she has been emotionally distressed by the fact that her whom she has been from him for at least 2 years, has a new relationship. She struggles to recall her medication treatment history. She admits to difficulties with her memory. Has been seeing Dr. Blankenship from neurology in [place]. Believes she may have had recent neuroimaging. Uncertain of diagnosis. Reports history of tremor, restless leg syndrome, and history of stroke. She denies a history of auditory, visual, or tactile hallucinations however she does describe a feeling that someone is lying in bed with her upon first waking. She acknowledges thoughts of not wanting to be alive secondary to her emotional pain but denies plan or intent for self-harm at present. Physical Exam Psychiatric Orientation: alert and cooperative Apperance: appropriately dressed and appropriately groomed Eye Contact: + fair eye contact Persistent choreiform movements of the feet Speech: no pressured speech (+overproductive) Affect: + depressed affect, + anxious affect, + tearful affect and + labile affect Mood: + depressed mood and + anxious mood Thought Process: + perseveration; no thought blocking and no flight of ideas Thought Content: + preoccupation; no delusions Suicidal Thoughts: denies suicidal plan and denies suicidal intent; + reports suicidal thoughts Homicidal Thoughts: denies homicidal thoughts Hallucinations: no auditory hallucinations, no visual hallucinations and no tactile hallucinations Cognition: + recent memory not intact Insight: + fair insight Judgement: + fair judgement Vital Signs (Past 24 Hours) Last Vital Signs Temp 36.7 C 06/25/19 06:00 Pulse 80 06/25/19 06:00 Resp 18 06/25/19 06:00 BP 138/84 06/25/19 06:00 Pulse Ox 98 06/23/19 17:16 Results & Data Laboratory Results Laboratory Results - last 24 hr 06/24/19 06/24/19 06/24/19 12:40 17:22 20:56 PT INR POC Glucose 184 H 196 H 135 H 06/25/19 06/25/19 06/25/19 06:26 08:37 12:06 PT 21.1 H INR 2.2 H POC Glucose 97 200 H Current Inpatient Medications Current Inpatient Medications: Current Inpatient Medications Al Hydrox/Mg Hydrox/Simethicone (Maalox) 30 ml PO Q4H PRN PRN Reason: GI Upset Stop: 07/23/19 18:29 Amlodipine Besylate (Norvasc) 5 mg PO BID JT Stop: 07/23/19 20:59 Last Admin: 06/25/19 08:55 Dose: 5 mg Documented by: Bupropion HCl (Wellbutrin-Sr) 100 mg PO BIDM [facility] Stop: 07/24/19 07:59 Last Admin: 06/25/19 08:56 Dose: 100 mg Documented by: Cyanocobalamin (Vitamin B-12) 1,000 mcg PO DAILY JT Stop: 07/24/19 08:59 Last Admin: 06/25/19 08:56 Dose: 1,000 mcg Documented by: Dextrose (Dextrose 50%) 25 - 50 ml IV UD PRN; Protocol PRN Reason: Hypoglycemia Protocol Stop: 07/23/19 19:44 Ergocalciferol (Vitamin D2) 50,000 units PO Mo@0900 [facility] Stop: 07/29/19 08:59 Escitalopram Oxalate (Lexapro Tab) 20 mg PO HS [facility] Stop: 07/23/19 20:59 Last Admin: 06/24/19 21:27 Dose: 20 mg Documented by: Fenofibrate (Tricor) 145 mg PO DAILY [facility] Stop: 07/23/19 19:59 Last Admin: 06/25/19 08:55 Dose: 145 mg Documented by: Gabapentin (Neurontin) 200 mg PO HS [facility] Stop: 07/23/19 20:59 Last Admin: 06/24/19 21:27 Dose: 200 mg Documented by: Glipizide (Glucotrol Extended Rel) 5 mg PO QDB [facility] Stop: 07/24/19 08:59 Last Admin: 06/25/19 08:54 Dose: 5 mg Documented by: Glucagon (Glucagen) 1 mg IM UD PRN; Protocol PRN Reason: Hypoglycemia Protocol Stop: 07/23/19 19:44 Glucose (Glucose 40%) 15 - 30 gm PO UD PRN; Protocol PRN Reason: Hypoglycemia Protocol Stop: 07/23/19 19:44 Glucose (Dex4 Glucose) 4 - 8 tabs PO UD PRN; Protocol PRN Reason: Hypoglycemia Protocol Stop: 07/23/19 19:44 Hydroxyzine HCl (Vistaril) 50 mg PO HSZ PRN PRN Reason: Insomnia Stop: 07/23/19 18:29 Hydroxyzine HCl (Vistaril) 25 mg PO Q4H PRN PRN Reason: Anxiety Stop: 07/23/19 21:28 Last Admin: 06/25/19 12:10 Dose: 25 mg Documented by: Insulin Glargine (Lantus Solostar Pen) 12 units SQ QPM JT Stop: 07/23/19 20:59 Last Admin: 06/24/19 21:32 Dose: 12 units Documented by: Lamotrigine (Lamictal) 250 mg PO HS JT Stop: 07/23/19 20:59 Last Admin: 06/24/19 21:27 Dose: 250 mg Documented by: Losartan Potassium (Cozaar) 100 mg PO QAM JT Stop: 07/24/19 08:59 Last Admin: 06/25/19 08:54 Dose: 100 mg Documented by: Magnesium Hydroxide (Milk Of Magnesia) 30 ml PO DAILY PRN PRN Reason: Constipation Stop: 07/23/19 18:29 Metoprolol Succinate (Toprol Xl) 100 mg PO BID [facility] Stop: 07/23/19 20:59 Last Admin: 06/25/19 08:55 Dose: 100 mg Documented by: Miscellaneous (Carbohydrates For Hypoglycemia) 15 - 30 gm PO UD PRN PRN Reason: Hypoglycemia Treatment Stop: 07/23/19 19:44 Nitroglycerin (Nitrostat) 0.4 mg SL Q5M PRN PRN Reason: chest pain Stop: 07/23/19 18:33 Pantoprazole Sodium (Protonix) 40 mg PO DAILY [facility] Stop: 07/24/19 08:59 Last Admin: 06/25/19 08:55 Dose: 40 mg Documented by: Pravastatin Sodium (Pravachol) 20 mg PO QPM JT Stop: 07/23/19 20:59 Last Admin: 06/24/19 21:30 Dose: 20 mg Documented by: Propranolol HCl (Inderal La) 60 mg PO DAILY JT Stop: 07/24/19 08:59 Last Admin: 06/25/19 08:55 Dose: 60 mg Documented by: Ropinirole HCl (Requip) 0.25 mg PO QAM [facility] Stop: 07/24/19 08:59 Last Admin: 06/25/19 08:55 Dose: 0.25 mg Documented by: Ropinirole HCl (Requip) 0.5 mg PO HS [facility] Stop: 07/23/19 20:59 Last Admin: 06/24/19 21:27 Dose: 0.5 mg Documented by: Sodium Chloride ([place] Nasal) 1 - 2 sprays NA PRN PRN PRN Reason: Nasal Dryness/Congestion Stop: 07/23/19 18:29 Sucralfate (Carafate Tab) 1 gm PO ACHS JT Stop: 07/23/19 20:59 Last Admin: 06/25/19 12:10 Dose: 1 gm Documented by: Torsemide (Demadex) 20 mg PO DAILY JT Stop: 07/24/19 08:59 Last Admin: 06/25/19 08:54 Dose: 20 mg Documented by: Warfarin Sodium (Coumadin) 4 mg PO HS JT Stop: 07/23/19 20:59 Last Admin: 06/24/19 21:29 Dose: 4 mg Documented by: Mental Health & Subst Abuse Tx Psychiatrist [facility] - Dr. Nelson Psychiatrist's Psychiatric Appointment Comment: [address], [address], [place] Therapist Name of Therapist: Annette Cash, private practice in [place], [facility] next Saturday Therapist's Date of Therapist Appointment: 07/01/19 Therapy Appointment Comment: [address], [address], [place] [address] Decorating Kiln Operator Name of Decorating Kiln Operator: Open to referral Post Discharge Appointments Primary Care Physician Name Of Family Doctor: Dr. Bird, [place] Primary Care Provider Appointment Comment: [address] [place] [id number] Contact Information Discharge Discharge [address]: [address] [place] [address] (1) Bipolar disorder Active/Remission status: currently active Current bipolar episode type: depressed Current episode severity: severe Psychotic features: without psychotic features Qualified Code(s): F31.4 - Bipolar disorder, current episode depressed, severe, without psychotic features
[2019-06-25] MEDS: GABAPENTIN 100 MG CAP PO SCH (20:48)
[2019-06-25] MEDS: ESCITALOPRAM OXALATE 20 MG TAB PO SCH (20:49)
[2019-06-25] MEDS: WARFARIN SOD 4 MG TAB PO SCH (20:50)
[2019-06-25] MEDS: PRAVASTATIN SOD 20 MG TAB PO SCH (20:50)
[2019-06-25] MEDS: lamoTRIgine 100 MG TAB PO SCH (20:52)
[2019-06-25] MEDS: INSULIN GLARGINE SOLOSTAR 100 UNITS/ML 3 ML PEN SQ SCH (20:53)
[2019-06-26 07:17] LABS: INR 2.1 (0.9-1.1); Prothrombin Time 20.6 Seconds (9.0-12.0)
[2019-06-26] MEDS: SUCRALFATE 1 GM TAB PO SCH ×4 (08:58→21:40)
[2019-06-26] MEDS: LOSARTAN POTASSIUM 50 MG TAB PO SCH (08:58)
[2019-06-26] MEDS: TORSEMIDE 10 MG TAB PO SCH (08:58)
[2019-06-26] MEDS: ROPINIROLE HCL 0.25 MG TABLET PO SCH ×2 (08:59→21:43)
[2019-06-26] MEDS: glipiZIDE ER 2.5 MG TABCR PO SCH (08:59)
[2019-06-26] MEDS: PANTOprazole 40 MG TAB PO SCH (08:59)
[2019-06-26] MEDS: AMLODIPINE BESYLATE 5 MG TAB PO SCH ×2 (08:59→21:38)
[2019-06-26] MEDS: METOPROLOL SUCC 50MG EXT REL TAB PO SCH ×2 (08:59→21:39)
[2019-06-26] MEDS: PROPRANOLOL HCL 60 MG LA CAP PO SCH (08:59)
[2019-06-26] MEDS: CYANOCOBALAMIN 500 MCG TABLET (VITAMIN B-12) PO SCH (09:00)
[2019-06-26] MEDS: FENOFIBRATE NANOCRYSTALLIZED 145 MG TABLET PO SCH (09:00)
[2019-06-26] MEDS: BuPROPion SR 100 MG TABCR PO SCH ×2 (09:00→17:33)
--- NOTE | 2019-06-26 14:46 | Psychiatric Progress Note ---
Date of Service June 26, 2019 Impression / Recommendations Impression 73-year-old female with a history of bipolar disorder, generalized anxiety disorder, cognitive disorder NOS, and multiple medical problems who presents with decompensated mood and anxiety in the context of feelings of abandonment after she and her 2 years ago. He now has a new girlfriend, which has been the predominant trigger for her recent mood symptoms, and she has additional stressors including financial, housing, and transportation. She has been isolating at home, reports poor social supports, and her multiple medical conditions have been deteriorating as well. She descr ibes frequent abrupt mood changes, crying spells, poor self-esteem, loneliness, hopelessness, and a wish to be "gone." She has struggled with loss, both the of her mother and separation in her marriage, and borderline and dependent traits have been noted. She does have a good alliance with her therapist whom she has been seeing for years, and would benefit from increased supports in a plan to increase structure and socialization. She elected to retire this past spring as her symptoms were making it difficult for her to function at work, and although anxiety initially improved, she is now struggling in part due to the lack of social interaction. She has cognitive impairment as well which worsens when emotionally distraught, and has been unable to care for herself at home, missing doses of medications, displaying memory problems, and although recognizes she is not safe to drive, drove from [place] to [place]. Inpatient treatment is medically necessary due to the severity of her symptoms and risk for harm if discharged prematurely. (1) Bipolar disorder: 06/24 - Continue escitalopram 20 mg, lamotrigine 250 mg at bedtime, and bupropion SR 100 mg twice daily. She was recently switched from citalopram to escitalopram after discussion with her PCP, due to cardiac risk. -Have considered alternative mood stabilizers/medications to target bipolar depression including lithium and atypical antipsychotics, but concerns include multiple unstable medical comorbidities, difficulties with medication adherence, and cognitive impairment. She had worsening tremor on lithium, and side effects with aripiprazole and quetiapine. She has not had a trial of lurasidone, which would be reasonable to consider. I do think there is an Calvin II component to her mood symptoms as well, I would like to try addressing current decompensation through nonpharmacologic methods prior to changing medications due to aforementioned concerns. -Care coordinated with her outpatient therapist, Annette Rousseau -next appointment is 07/01/2019 at 10 AM. Recommend referral for a blended case management, to increase supports in her area, and explore options for transportation. 06/25 -Long-standing bipolar diagnosis. No med changes admission and will continue to monitor for another 24 hours before we consider additional pharmacotherapy. Patient unfortunately is a fairly poor historian guarding prior psychiatric treatment. I agree with Dr. Nelson that he does appear likely a long-standing cluster B personality component to her mood instability and feelings of abandonment likely recently exacerbated related to her 's new relationship 06/26 -Due to the severity of her emotional distress, will trial olanzapine 1.25 mg twice daily taken mid day and bedtime for additional mood stabilization/augmentation and off label anxiolysis. This agent was chosen for lower risk for EPS, calming effect profile, and likely quick onset of action. Unfavorably it as a relatively high risk of metabolic side effects and patient does have a history of diabetes and dyslipidemia which was discussed in detail with the patient and she was accepting of this risk. If she does gain weight on the olanzapine this potentially could be a temporary intervention to help her during this transitional time. (2) Generalized anxiety disorder: 06/24 -continue SSRI and hydroxyzine 25 mg 3 times daily as needed anxiety. Work on healthy coping skills and ways to manage anxiety. She has benefited from doing daily devotion/journaling before. (3) Cognitive disorder: 06/24 -has seen a neurologist, Dr. Mayen, in [place]. Had a brain MRI which showed microvascular change, EEG showed evidence of encephalopathy. Cognitive function clearly worsens when she is decompensated psychiatrically, and she was previously on benzodiazepines which have since been tapered off. Her initial MOCA in 11/2018 was 17/30, and in 12/2018 was 23/30. Centrally acting medications had been reduced and anxiety was improved at that time. -Will recheck MOCA here once anxiety is under better control. -Patient agrees not to drive until she has stabilized both medically and psychiatrically. 06/25 -Patient reports she is being followed by neurology in [place]. Presently I am uncertain of most recent neuroimaging results however it appears she has known history of microvascular changes. She certainly has risk factors for cerebrovascular disease. Lower extremity movements have a choreiform character. Consider possibility of late onset Dianne's chorea particularly as family history is unknown related to symptom cluster of chorea, personality change, mood lability, executive dysfunction, mild cognitive impairment. Would be helpful to review if evidence of caudate atrophy on imaging. 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 Work on healthy coping skills (5) Hypercholesterolemia: Continue home dose of TriCor (6) Diabetes mellitus: 06/24 - Diabetic diet, continue insulin, consult diabetic pharmacist and educator at patient's request 06/26 - sugars stable (7) Restless leg syndrome: Continue Requip and gabapentin at bedtime (8) Vitamin D deficiency: Continue supplementation (9) Coronary artery disease: Continue metoprolol XL, Norvasc, propanolol, and Cozaar (10) Warfarin anticoagulation: Continue home dose of Coumadin, and check INR daily. 2.3 on admission, 2 .0 today. 06/25 - INR 2.2 06/26 - INR 2.1 Inventory Assets Strengths: Supportive family, has outpatient providers Needs: Increase supports and structure Risk Factors Assessment Male: No : Yes Do You Have Access To A Gun?: No Health Problems: Yes Mental Health Diagnoses: Yes Substance Use Disorders: No Previous Attempt: Yes Family History of Suicide: No Previous Psychiatric Hospitalization: Yes Hopelessness: Yes Smoker: No Protective Factors Assessment Pentecostal Beliefs: Yes : Yes (But and has a new girlfriend) Responsible for Young Children: No Employed: No Stable Relationships: No Supportive Family: Yes Good Rapport with Provider: Yes Interval History Chief Complaint "I think I'm even worse. I don't want to feel this way". Review of Systems Notes Motor restlessness persists Sleep Information Total Hours of Sleep: 10 Sleep Comments: pt on q-15 minute checks Meal Information Percent Meal Consumed - Breakfast: 40 Percent Meal Consumed - Lunch: 100 Percent Meal Consumed - Dinner: 100 Nutrition Comment: per meal log Subjective Subjective Patient was seen & assessed and interval progress reviewed with treatment team. Patient remains labile, easily distressed. Nursing staff have observed frequent thought derailment conversationally. Compliant with care and meds. Per social work, family considering moving patient to daughter's property where her also lives. They are working on power of deputy prosecuting attorney paperwork for her as well. She appears, at least preliminarily, accepting of this. She reports no improvement in mood and perhaps even worse since yesterday. States that she cannot cope with her feelings. Available outpatient records again reviewed and I see that she has recently been tapered from Ativan and BuSpar and converted from Celexa to Lexapro in the outpatient setting. She requests additional pharmacotherapy to help with her emotional distress and states that she is willing to trial another atypical antipsychotic despite risk for weight gain and associated metabolic risks after discussion of several treatment options. Physical Exam Psychiatric Orientation: alert and cooperative Apperance: appropriately dressed and appropriately groomed Eye Contact: good eye contact Motor Behavior: + abnormal motor movements Speech: + loud speech Affect: + tearful affect and + labile affect Mood: + depressed mood and + anxious mood Thought Process: + perseveration Thought Content: + preoccupation, + hopelessness and + worthlessness Suicidal Thoughts: + reports suicidal thoughts Homicidal Thoughts: denies homicidal thoughts Hallucinations: no auditory hallucinations and no visual hallucinations Cognition: + recent memory not intact and + attention not intact Insight: + limited insight Judgement: + impaired judgement Vital Signs (Past 24 Hours) Last Vital Signs Temp 36.7 C 06/26/19 06:53 Pulse 64 06/26/19 06:55 Resp 18 06/26/19 06:53 BP 152/80 H 06/26/19 06:55 Pulse Ox 98 06/23/19 17:16 Results & Data Laboratory Results Laboratory Results - last 24 hr 06/25/19 06/26/19 06/26/19 20:37 06:50 08:35 PT 20.6 H INR 2.1 H POC Glucose 158 H 77 06/26/19 12:40 PT INR POC Glucose 173 H Current Inpatient Medications Current Inpatient Medications: Current Inpatient Medications Al Hydrox/Mg Hydrox/Simethicone (Maalox) 30 ml PO Q4H PRN PRN Reason: GI Upset Stop: 07/23/19 18:29 Amlodipine Besylate (Norvasc) 5 mg PO BID JT Stop: 07/23/19 20:59 Last Admin: 06/26/19 08:59 Dose: 5 mg Documented by: Bupropion HCl (Wellbutrin-Sr) 100 mg PO BIDM [facility] Stop: 07/24/19 07:59 Last Admin: 06/26/19 09:00 Dose: 100 mg Documented by: Cyanocobalamin (Vitamin B-12) 1,000 mcg PO DAILY JT Stop: 07/24/19 08:59 Last Admin: 06/26/19 09:00 Dose: 1,000 mcg Documented by: Dextrose (Dextrose 50%) 25 - 50 ml IV UD PRN; Protocol PRN Reason: Hypoglycemia Protocol Stop: 07/23/19 19:44 Ergocalciferol (Vitamin D2) 50,000 units PO Mo@0900 [facility] Stop: 07/29/19 08:59 Escitalopram Oxalate (Lexapro Tab) 20 mg PO HS [facility] Stop: 07/23/19 20:59 Last Admin: 06/25/19 20:49 Dose: 20 mg Documented by: Fenofibrate (Tricor) 145 mg PO DAILY [facility] Stop: 07/23/19 19:59 Last Admin: 06/26/19 09:00 Dose: 145 mg Documented by: Gabapentin (Neurontin) 200 mg PO HS [facility] Stop: 07/23/19 20:59 Last Admin: 06/25/19 20:48 Dose: 200 mg Documented by: Glipizide (Glucotrol Extended Rel) 5 mg PO QDB [facility] Stop: 07/24/19 08:59 Last Admin: 06/26/19 08:59 Dose: 5 mg Documented by: Glucagon (Glucagen) 1 mg IM UD PRN; Protocol PRN Reason: Hypoglycemia Protocol Stop: 07/23/19 19:44 Glucose (Glucose 40%) 15 - 30 gm PO UD PRN; Protocol PRN Reason: Hypoglycemia Protocol Stop: 07/23/19 19:44 Glucose (Dex4 Glucose) 4 - 8 tabs PO UD PRN; Protocol PRN Reason: Hypoglycemia Protocol Stop: 07/23/19 19:44 Hydroxyzine HCl (Vistaril) 50 mg PO HSZ PRN PRN Reason: Insomnia Stop: 07/23/19 18:29 Last Admin: 06/25/19 20:01 Dose: 50 mg Documented by: Hydroxyzine HCl (Vistaril) 25 mg PO Q4H PRN PRN Reason: Anxiety Stop: 12/26/19 21:28 Last Admin: 06/25/19 18:31 Dose: 25 mg Documented by: Insulin Glargine (Lantus Solostar Pen) 12 units SQ QPM JT Stop: 07/23/19 20:59 Last Admin: 06/25/19 20:53 Dose: 12 units Documented by: Lamotrigine (Lamictal) 250 mg PO HS JT Stop: 07/23/19 20:59 Last Admin: 06/25/19 20:52 Dose: 250 mg Documented by: Losartan Potassium (Cozaar) 100 mg PO QAM JT Stop: 07/24/19 08:59 Last Admin: 06/26/19 08:58 Dose: 100 mg Documented by: Magnesium Hydroxide (Milk Of Magnesia) 30 ml PO DAILY PRN PRN Reason: Constipation Stop: 07/23/19 18:29 Metoprolol Succinate (Toprol Xl) 100 mg PO BID JT Stop: 07/23/19 20:59 Last Admin: 06/26/19 08:59 Dose: 100 mg Documented by: Miscellaneous (Carbohydrates For Hypoglycemia) 15 - 30 gm PO UD PRN PRN Reason: Hypoglycemia Treatment Stop: 07/23/19 19:44 Nitroglycerin (Nitrostat) 0.4 mg SL Q5M PRN PRN Reason: chest pain Stop: 07/23/19 18:33 Pantoprazole Sodium (Protonix) 40 mg PO DAILY [facility] Stop: 07/24/19 08:59 Last Admin: 06/26/19 08:59 Dose: 40 mg Documented by: Pravastatin Sodium (Pravachol) 20 mg PO QPM JT Stop: 07/23/19 20:59 Last Admin: 06/25/19 20:50 Dose: 20 mg Documented by: Propranolol HCl (Inderal La) 60 mg PO DAILY [facility] Stop: 07/24/19 08:59 Last Admin: 06/26/19 08:59 Dose: 60 mg Documented by: Ropinirole HCl (Requip) 0.25 mg PO QAM [facility] Stop: 07/24/19 08:59 Last Admin: 06/26/19 08:59 Dose: 0.25 mg Documented by: Ropinirole HCl (Requip) 0.5 mg PO HS [facility] Stop: 07/23/19 20:59 Last Admin: 06/25/19 20:48 Dose: 0.5 mg Documented by: Sodium Chloride (Orestes Nasal) 1 - 2 sprays NA PRN PRN PRN Reason: Nasal Dryness/Congestion Stop: 07/23/19 18:29 Sucralfate (Carafate Tab) 1 gm PO ACHS JT Stop: 07/23/19 20:59 Last Admin: 06/26/19 13:11 Dose: 1 gm Documented by: Torsemide (Demadex) 20 mg PO DAILY JT Stop: 07/24/19 08:59 Last Admin: 06/26/19 08:58 Dose: 20 mg Documented by: Warfarin Sodium (Coumadin) 4 mg PO HS JT Stop: 07/23/19 20:59 Last Admin: 06/25/19 20:50 Dose: 4 mg Documented by: Mental Health & Subst Abuse Tx Psychiatrist Name of Psychiatrist: Charanjit Candelaria - Dr. Nelson Psychiatrist's Psychiatric Appointment Comment: [address] [facility], [facility] Therapist Name of Therapist: Annette Cash, private practice in [place] Therapist's Date of Therapist Appointment: 07/01/19 Therapy Appointment Comment: [address] [facility], [place], [address] [phone] Duster Tender Name of Duster Tender: BOZENA Grey Post Discharge Appointments Primary Care Physician Name Of Family Doctor: Dr. Bird [place] Primary Care Provider Appointment Comment: [address] [place] [id number] Neurologist Name of Neurologist: Dr. Blankenship Neurologist's Neurology Appointment Comment: [address] [place], [place] Contact Information Discharge Discharge Address: [address] [place] [id number] (1) Bipolar disorder Active/Remission status: currently active Current bipolar episode type: depressed Current episode severity: severe Psychotic features: without psychotic features Qualified Code(s): F31.4 - Bipolar disorder, current episode depressed, severe, without psychotic features
[2019-06-26] MEDS: OLANZAPINE 2.5 MG TAB PO SCH ×2 (16:05→21:39)
[2019-06-26] MEDS: PRAVASTATIN SOD 20 MG TAB PO SCH (21:39)
[2019-06-26] MEDS: lamoTRIgine 100 MG TAB PO SCH (21:41)
[2019-06-26] MEDS: WARFARIN SOD 4 MG TAB PO SCH (21:41)
[2019-06-26] MEDS: ESCITALOPRAM OXALATE 20 MG TAB PO SCH (21:42)
[2019-06-26] MEDS: GABAPENTIN 100 MG CAP PO SCH (21:43)
[2019-06-26] MEDS: INSULIN GLARGINE SOLOSTAR 100 UNITS/ML 3 ML PEN SQ SCH (21:45)
[2019-06-27] MEDS: SUCRALFATE 1 GM TAB PO SCH ×4 (08:42→21:38)
[2019-06-27] MEDS: LOSARTAN POTASSIUM 50 MG TAB PO SCH (08:43)
[2019-06-27] MEDS: TORSEMIDE 10 MG TAB PO SCH (08:43)
[2019-06-27] MEDS: PROPRANOLOL HCL 60 MG LA CAP PO SCH (08:44)
[2019-06-27] MEDS: glipiZIDE ER 2.5 MG TABCR PO SCH (08:44)
[2019-06-27] MEDS: PANTOprazole 40 MG TAB PO SCH (08:45)
[2019-06-27] MEDS: CYANOCOBALAMIN 500 MCG TABLET (VITAMIN B-12) PO SCH (08:45)
[2019-06-27] MEDS: METOPROLOL SUCC 50MG EXT REL TAB PO SCH ×2 (08:45→21:37)
[2019-06-27] MEDS: FENOFIBRATE NANOCRYSTALLIZED 145 MG TABLET PO SCH (08:45)
[2019-06-27] MEDS: ROPINIROLE HCL 0.25 MG TABLET PO SCH ×2 (08:45→21:41)
[2019-06-27] MEDS: AMLODIPINE BESYLATE 5 MG TAB PO SCH ×2 (08:45→21:34)
[2019-06-27] MEDS: OLANZAPINE 2.5 MG TAB PO SCH ×2 (08:46→21:38)
[2019-06-27] MEDS: BuPROPion SR 100 MG TABCR PO SCH ×2 (08:46→17:17)
--- NOTE | 2019-06-27 16:01 | Psychiatric Progress Note ---
Date of Service June 27, 2019 Impression / Recommendations Impression 73-year-old female with a history of bipolar disorder, generalized anxiety disorder, cognitive disorder NOS, and multiple medical problems who presents with decompensated mood and anxiety in the context of feelings of abandonment after she and her 2 years ago. He now has a new girlfriend, which has been the predominant trigger for her recent mood symptoms, and she has additional stressors including financial, housing, and transportation. She has been isolating at home, reports poor social supports, and her multiple medical conditions have been deteriorating as well. She descr ibes frequent abrupt mood changes, crying spells, poor self-esteem, loneliness, hopelessness, and a wish to be "gone." She has struggled with loss, both the of her mother and separation in her marriage, and borderline and dependent traits have been noted. She does have a good alliance with her therapist whom she has been seeing for years, and would benefit from increased supports in a plan to increase structure and socialization. She elected to retire this past spring as her symptoms were making it difficult for her to function at work, and although anxiety initially improved, she is now struggling in part due to the lack of social interaction. She has cognitive impairment as well which worsens when emotionally distraught, and has been unable to care for herself at home, missing doses of medications, displaying memory problems, and although recognizes she is not safe to drive, drove from [place] to [place]. Inpatient treatment is medically necessary due to the severity of her symptoms and risk for harm if discharged prematurely. (1) Bipolar disorder: 06/24 - Continue escitalopram 20 mg, lamotrigine 250 mg at bedtime, and bupropion SR 100 mg twice daily. She was recently switched from citalopram to escitalopram after discussion with her PCP, due to cardiac risk. -Have considered alternative mood stabilizers/medications to target bipolar depression including lithium and atypical antipsychotics, but concerns include multiple unstable medical comorbidities, difficulties with medication adherence, and cognitive impairment. She had worsening tremor on lithium, and side effects with aripiprazole and quetiapine. She has not had a trial of lurasidone, which would be reasonable to consider. I do think there is an Rawson II component to her mood symptoms as well, I would like to try addressing current decompensation through nonpharmacologic methods prior to changing medications due to aforementioned concerns. -Care coordinated with her outpatient therapist, Annette Rousseau -next appointment is 07/01/2019 at 10 AM. Recommend referral for a blended case management, to increase supports in her area, and explore options for transportation. 06/25 -Long-standing bipolar diagnosis. No med changes admission and will continue to monitor for another 24 hours before we consider additional pharmacotherapy. Patient unfortunately is a fairly poor historian guarding prior psychiatric treatment. I agree with Dr. Nelson that he does appear likely a long-standing cluster B personality component to her mood instability and feelings of abandonment likely recently exacerbated related to her 's new relationship 06/26 -Due to the severity of her emotional distress, will trial olanzapine 1.25 mg twice daily taken mid day and bedtime for additional mood stabilization/augmentation and off label anxiolysis. This agent was chosen for lower risk for EPS, calming effect profile, and likely quick onset of action. Unfavorably it as a relatively high risk of metabolic side effects and patient does have a history of diabetes and dyslipidemia which was discussed in detail with the patient and she was accepting of this risk. If she does gain weight on the olanzapine this potentially could be a temporary intervention to help her during this transitional time. 06/27 -Increase olanzapine to 2.5 mg p.o. twice daily -will further review treatment history and consider alternative antidepressant options (known prior antidepressant tx: celexa, lexapro, remeron, wellbutrin. depakote, lithium, abilify worsened tremor. seroquel not effective. on lamictal now.) - important to note that mood lability and suicidality dates back to teens (2) Generalized anxiety disorder: 06/24 -continue SSRI and hydroxyzine 25 mg 3 times daily as needed anxiety. Work on healthy coping skills and ways to manage anxiety. She has benefited from doing daily devotion/journaling before. (3) Cognitive disorder: 06/24 -has seen a neurologist, Dr. Mayen, in [place]. Had a brain MRI which showed microvascular change, EEG showed evidence of encephalopathy. Cognitive function clearly worsens when she is decompensated psychiatrically, and she was previously on benzodiazepines which have since been tapered off. Her initial MOCA in 11/2018 was 17/30, and in 12/2018 was 23/30. Centrally acting medications had been reduced and anxiety was improved at that time. -Will recheck MOCA here once anxiety is under better control. -Patient agrees not to drive until she has stabilized both medically and psychiatrically. 06/25 -Patient reports she is being followed by neurology in [place]. Presently I am uncertain of most recent neuroimaging results however it appears she has known history of microvascular changes. She certainly has risk factors for cerebrovascular disease. Lower extremity movements have a choreiform character. Consider possibility of late onset [place]'s chorea particularly as family history is unknown related to symptom cluster of chorea, personality change, mood lability, executive dysfunction, mild cognitive impairment. Would be helpful to review if evidence of caudate atrophy on imaging. 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 Work on healthy coping skills (5) Hypercholesterolemia: Continue home dose of TriCor (6) Diabetes mellitus: 06/24 - Diabetic diet, continue insulin, consult diabetic pharmacist and educator at patient's request 06/26 - sugars stable (7) Restless leg syndrome: Continue Requip and gabapentin at bedtime (8) Vitamin D deficiency: Continue supplementation (9) Coronary artery disease: Continue metoprolol XL, Norvasc, propanolol, and Cozaar (10) Warfarin anticoagulation: Continue home dose of Coumadin, and check INR daily. 2.3 on admission, 2.0 today. 06/25 - INR 2.2 06/26 - INR 2.1 06/27 - INR 2.1 Inventory Assets Strengths: Supportive family, has outpatient providers Needs: Increase supports and structure Risk Factors Assessment Male: No : Yes Do You Have Access To A Gun?: No Health Problems: Yes Mental Health Diagnoses: Yes Substance Use Disorders: No Previous Attempt: Yes Family History of Suicide: No Previous Psychiatric Hospitalization: Yes Hopelessness: Yes Smoker: No Protective Factors Assessment Restorationist Beliefs: Yes : Yes (But and has a new girlfriend) Responsible for Young Children: No Employed: No Stable Relationships: No Supportive Family: Yes Good Rapport with Provider: Yes Interval History Chief Complaint "It is hard to feel hopeful". Review of Systems Notes Denies dizziness or hypersomnolence Sleep Information Total Hours of Sleep: 7.25 Sleep Comments: pt on q-15 minute checks Meal Information Percent Meal Consumed - Breakfast: 100 Percent Meal Consumed - Lunch: 100 Percent Meal Consumed - Dinner: 100 Nutrition Comment: per meal log Subjective Subjective Patient was seen & assessed and interval progress reviewed with treatment team. Per nursing staff, patient seemed to do well with a family meeting yesterday and family making arrangements for her to return to her old home. Presently it appears unclear if her from whom she is will be residing there as well. She is attending groups. Remains frequently tearful. On interview she describes feeling accepting of this plan to return to her former home. States "probably will not be there because he is mad at me." She does not subjectively perceive much benefit from the olanzapine so far but denies any tolerability concerns. We discussed consideration for alternative antidepr essant if she does not respond favorably to increased zyprexa. Physical Exam Psychiatric Orientation: cooperative Apperance: appropriately dressed and appropriately groomed Eye Contact: + fair eye contact Motor Behavior: + abnormal motor movements Speech: no pressured speech Affect: + depressed affect, + anxious affect and + constricted affect Mood: + depressed mood and + anxious mood Thought Process: goal directed thought process and + perseveration Thought Content: + preoccupation, + hopelessness, + worthlessness, + guilt and + self deprecation Insight: + fair insight Judgement: + fair judgement Vital Signs (Past 24 Hours) Last Vital Signs Temp 36.6 C 06/27/19 06:43 Pulse 64 06/27/19 06:43 Resp 18 06/27/19 06:43 BP 136/87 06/27/19 06:43 Pulse Ox 98 06/23/19 17:16 Results & Data Laboratory Results Laboratory Results - last 24 hr 06/26/19 06/26/19 06/27/19 17:12 21:44 08:33 POC Glucose 105 H 198 H 84 06/27/19 12:37 POC Glucose 127 H Current Inpatient Medications Current Inpatient Medications: Current Inpatient Medications Al Hydrox/Mg Hydrox/Simethicone (Maalox) 30 ml PO Q4H PRN PRN Reason: GI Upset Stop: 07/23/19 18:29 Amlodipine Besylate (Norvasc) 5 mg PO BID [facility] Stop: 07/23/19 20:59 Last Admin: 06/27/19 08:45 Dose: 5 mg Documented by: Bupropion HCl (Wellbutrin-Sr) 100 mg PO BIDM [facility] Stop: 07/24/19 07:59 Last Admin: 06/27/19 08:46 Dose: 100 mg Documented by: Cyanocobalamin (Vitamin B-12) 1,000 mcg PO DAILY JT Stop: 07/24/19 08:59 Last Admin: 06/27/19 08:45 Dose: 1,000 mcg Documented by: Dextrose (Dextrose 50%) 25 - 50 ml IV UD PRN; Protocol PRN Reason: Hypoglycemia Protocol Stop: 07/23/19 19:44 Ergocalciferol (Vitamin D2) 50,000 units PO Mo@0900 [facility] Stop: 07/29/19 08:59 Escitalopram Oxalate (Lexapro Tab) 20 mg PO HS [facility] Stop: 07/23/19 20:59 Last Admin: 06/26/19 21:42 Dose: 20 mg Documented by: Fenofibrate (Tricor) 145 mg PO DAILY [facility] Stop: 07/23/19 19:59 Last Admin: 06/27/19 08:45 Dose: 145 mg Documented by: Gabapentin (Neurontin) 200 mg PO HS [facility] Stop: 07/23/19 20:59 Last Admin: 06/26/19 21:43 Dose: 200 mg Documented by: Glipizide (Glucotrol Extended Rel) 5 mg PO QDB [facility] Stop: 07/24/19 08:59 Last Admin: 06/27/19 08:44 Dose: 5 mg Documented by: Glucagon (Glucagen) 1 mg IM UD PRN; Protocol PRN Reason: Hypoglycemia Protocol Stop: 07/23/19 19:44 Glucose (Glucose 40%) 15 - 30 gm PO UD PRN; Protocol PRN Reason: Hypoglycemia Protocol Stop: 07/23/19 19:44 Glucose (Dex4 Glucose) 4 - 8 tabs PO UD PRN; Protocol PRN Reason: Hypoglycemia Protocol Stop: 07/23/19 19:44 Hydroxyzine HCl (Vistaril) 50 mg PO HSZ PRN PRN Reason: Insomnia Stop: 07/23/19 18:29 Last Admin: 06/25/19 20:01 Dose: 50 mg Documented by: Hydroxyzine HCl (Vistaril) 25 mg PO Q4H PRN PRN Reason: Anxiety Stop: 07/23/19 21:28 Last Admin: 06/27/19 14:55 Dose: 25 mg Documented by: Insulin Glargine (Lantus Solostar Pen) 12 units SQ QPM JT Stop: 07/23/19 20:59 Last Admin: 06/26/19 21:45 Dose: 12 units Documented by: Lamotrigine (Lamictal) 250 mg PO HS JT Stop: 07/23/19 20:59 Last Admin: 06/26/19 21:41 Dose: 250 mg Documented by: Losartan Potassium (Cozaar) 100 mg PO QAM JT Stop: 07/24/19 08:59 Last Admin: 06/27/19 08:43 Dose: 100 mg Documented by: Magnesium Hydroxide (Milk Of Magnesia) 30 ml PO DAILY PRN PRN Reason: Constipation Stop: 07/23/19 18:29 Metoprolol Succinate (Toprol Xl) 100 mg PO BID JT Stop: 07/23/19 20:59 Last Admin: 06/27/19 08:45 Dose: 100 mg Documented by: Miscellaneous (Carbohydrates For Hypoglycemia) 15 - 30 gm PO UD PRN PRN Reason: Hypoglycemia Treatment Stop: 07/23/19 19:44 Nitroglycerin (Nitrostat) 0.4 mg SL Q5M PRN PRN Reason: chest pain Stop: 07/23/19 18:33 Olanzapine (Zyprexa) 1.25 mg PO BID [facility] Stop: 07/26/19 15:14 Last Admin: 06/27/19 08:46 Dose: 1.25 mg Documented by: Pantoprazole Sodium (Protonix) 40 mg PO DAILY JT Stop: 07/24/19 08:59 Last Admin: 06/27/19 08:45 Dose: 40 mg Documented by: Pravastatin Sodium (Pravachol) 20 mg PO QPM JT Stop: 07/23/19 20:59 Last Admin: 06/26/19 21:39 Dose: 20 mg Documented by: Propranolol HCl (Inderal La) 60 mg PO DAILY [facility] Stop: 07/24/19 08:59 Last Admin: 06/27/19 08:44 Dose: 60 mg Documented by: Ropinirole HCl (Requip) 0.25 mg PO QAM JT Stop: 07/24/19 08:59 Last Admin: 06/27/19 08:45 Dose: 0.25 mg Documented by: Ropinirole HCl (Requip) 0.5 mg PO HS JT Stop: 07/23/19 20:59 Last Admin: 06/26/19 21:43 Dose: 0.5 mg Documented by: Sodium Chloride (Faulk Nasal) 1 - 2 sprays NA PRN PRN PRN Reason: Nasal Dryness/Congestion Stop: 07/23/19 18:29 Sucralfate (Carafate Tab) 1 gm PO ACHS JT Stop: 07/23/19 20:59 Last Admin: 06/27/19 12:39 Dose: 1 gm Documented by: Torsemide (Demadex) 20 mg PO DAILY JT Stop: 07/24/19 08:59 Last Admin: 06/27/19 08:43 Dose: 20 mg Documented by: Warfarin Sodium (Coumadin) 4 mg PO HS JT Stop: 07/23/19 20:59 Last Admin: 06/26/19 21:41 Dose: 4 mg Documented by: Mental Health & Subst Abuse Tx Psychiatrist [facility] - Dr. Nelson Psychiatrist's Psychiatric Appointment Comment: [address] [facility], [facility] Therapist Name of Therapist: Annette Cash, private practice in [place], [facility] next Saturday Therapist's Date of Therapist Appointment: 07/01/19 Therapy Appointment Comment: [address] [facility], [facility] [address] [address] Hand Cloth Examiner Name of Hand Cloth Examiner: BOZENA Grey Post Discharge Appointments Primary Care Physician Name Of Family Doctor: Dr. Bird [facility] Primary Care Provider Appointment Comment: [address] [place] [address] Neurologist Name of Neurologist: Dr. Blankenship Neurologist's Neurology Appointment Comment: [address] [facility] [place] Contact Information Discharge Discharge Address: [address] [place] [address] (1) Bipolar disorder Active/Remission status: currently active Current bipolar episode type: depressed Current episode severity: severe Psychotic features: without psychotic features Qualified Code(s): F31.4 - Bipolar disorder, current episode depressed, severe, without psychotic features
[2019-06-27] MEDS: INSULIN GLARGINE SOLOSTAR 100 UNITS/ML 3 ML PEN SQ SCH (21:33)
[2019-06-27] MEDS: PRAVASTATIN SOD 20 MG TAB PO SCH (21:37)
[2019-06-27] MEDS: WARFARIN SOD 4 MG TAB PO SCH (21:38)
[2019-06-27] MEDS: lamoTRIgine 100 MG TAB PO SCH (21:39)
[2019-06-27] MEDS: GABAPENTIN 100 MG CAP PO SCH (21:40)
[2019-06-27] MEDS: ESCITALOPRAM OXALATE 20 MG TAB PO SCH (21:40)
[2019-06-28 07:24] LABS: INR 2.6 (0.9-1.1); Prothrombin Time 25.1 Seconds (9.0-12.0)
[2019-06-28] MEDS: SUCRALFATE 1 GM TAB PO SCH ×4 (08:37→21:47)
[2019-06-28] MEDS: TORSEMIDE 10 MG TAB PO SCH (08:37)
[2019-06-28] MEDS: LOSARTAN POTASSIUM 50 MG TAB PO SCH (08:37)
[2019-06-28] MEDS: glipiZIDE ER 2.5 MG TABCR PO SCH (08:38)
[2019-06-28] MEDS: PROPRANOLOL HCL 60 MG LA CAP PO SCH (08:38)
[2019-06-28] MEDS: AMLODIPINE BESYLATE 5 MG TAB PO SCH ×2 (08:39→21:54)
[2019-06-28] MEDS: ROPINIROLE HCL 0.25 MG TABLET PO SCH ×2 (08:39→21:51)
[2019-06-28] MEDS: METOPROLOL SUCC 50MG EXT REL TAB PO SCH ×2 (08:39→21:45)
[2019-06-28] MEDS: PANTOprazole 40 MG TAB PO SCH (08:39)
[2019-06-28] MEDS: FENOFIBRATE NANOCRYSTALLIZED 145 MG TABLET PO SCH (08:40)
[2019-06-28] MEDS: CYANOCOBALAMIN 500 MCG TABLET (VITAMIN B-12) PO SCH (08:40)
[2019-06-28] MEDS: BuPROPion SR 100 MG TABCR PO SCH ×2 (08:41→18:00)
[2019-06-28] MEDS: OLANZAPINE 2.5 MG TAB PO SCH ×2 (08:41→21:46)
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
--- NOTE | 2019-06-28 09:37 | Psychiatric Progress Note ---
Date of Service June 28, 2019 Impression / Recommendations (1) Bipolar disorder: 06/24 - Continue escitalopram 20 mg, lamotrigine 250 mg at bedtime, and bupropion SR 100 mg twice daily. She was recently switched from citalopram to escitalopram after discussion with her PCP, due to cardiac risk. -Have considered alternative mood stabilizers/medications to target bipolar depression including lithium and atypical antipsychotics, but concerns include multiple unstable medical comorbidities, difficulties with medication adherence, and cognitive impairment. She had worsening tremor on lithium, and side effects with aripiprazole and quetiapine. She has not had a trial of lurasidone, which would be reasonable to consider. I do think there is an Delafield II component to her mood symptoms as well, I would like to try addressing current decompensation through nonpharmacologic methods prior to changing medications due to aforementioned concerns. -Care coordinated with her outpatient therapist, Annette Rousseau -next appointment is 07/01/2019 at 10 AM. Recommend referral for a blended case management, to increase supports in her area, and explore options for transportation. 06/25 -Long-standing bipolar diagnosis. No med changes admission and will continue to monitor for another 24 hours before we consider additional pharmacotherapy. Patient unfortunately is a fairly poor historian guarding prior psychiatric treatment. I agree with Dr. Nelson that he does appear likely a long-standing cluster B personality component to her mood instability and feelings of abandonment likely recently exacerbated related to her 's new relationship 06/26 -Due to the severity of her emotional distress, will trial olanzapine 1.25 mg twice daily taken mid day and bedtime for additional mood stabilization/augmentation and off label anxiolysis. This agent was chosen for lower risk for EPS, calming effect profile, and likely quick onset of action. Unfavorably it as a relatively high risk of metabolic side effects and patient does have a history of diabetes and dyslipidemia which was discussed in detail with the patient and she was accepting of this risk. If she does gain weight on the olanzapine this potentially could be a temporary intervention to help her during this transitional time. 06/27 -Increase olanzapine to 2.5 mg p.o. twice daily -will further review treatment history and consider alternative antidepressant options (known prior antidepressant tx: celexa, lexapro, remeron, wellbutrin. depakote, lithium, abilify worsened tremor. seroquel not effective. on lamictal now.) - important to note that mood lability and suicidality dates back to teens 06/28 -Appearing a little more composed on increased olanzapine so far which appears well-tolerated -We will attempt to maximize therapeutic benefit from lamotrigine increasing to 100 mg in the morning and 200 mg at night. Common risks and benefits of that medication were reviewed. Can consider checking a level prior to discharge to see if there is room for further titration. She reports a history of good tolerability of this medication. -As patient's outpatient psychiatrist will be returning tomorrow, I will defer alternative antidepressant choice to her judgment. (2) Generalized anxiety disorder: 06/24 -continue SSRI and hydroxyzine 25 mg 3 times daily as needed anxiety. Work on healthy coping skills and ways to manage anxiety. She has benefited from doing daily devotion/journaling before. (3) Cognitive disorder: 06/24 -has seen a neurologist, Dr. Mayen, in [place]. Had a brain MRI which showed microvascular change, EEG showed evidence of encephalopathy. Cognitive function clearly worsens when she is decompensated psychiatrically, and she was previously on benzodiazepines which have since been tapered off. Her initial MOCA in 11/2018 was 17/30, and in 12/2018 was 23/30. Centrally acting medications had been reduced and anxiety was improved at that time. -Will recheck MOCA here once anxiety is under better control. -Patient agrees not to drive until she has stabilized both medically and psychiatrically. 06/25 -Patient reports she is being followed by neurology in [place]. Presently I am uncertain of most recent neuroimaging results however it appears she has known history of microvascular changes. She certainly has risk factors for cerebrovascular disease. Lower extremity movements have a choreiform character. Consider possibility of late onset Mcdonald's chorea particularly as family history is unknown related to symptom cluster of chorea, personality change, mood lability, executive dysfunction, mild cognitive impairment. Would be helpful to review if evidence of caudate atrophy on imaging. 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 Work on healthy coping skills (5) Hypercholesterolemia: Continue home dose of TriCor (6) Diabetes mellitus: 06/24 - Diabetic diet, continue insulin, consult diabetic pharmacist and educator at patient's request 06/26 - sugars stable (7) Restless leg syndrome: Continue Requip and gabapentin at bedtime (8) Vitamin D deficiency: Continue supplementation (9) Coronary artery disease: Continue metoprolol XL, Norvasc, propanolol, and Cozaar (10) Warfarin anticoagulation: Continue home dose of Coumadin, and check INR daily. 2.3 on admission, 2.0 today. 06/25 - INR 2.2 06/26 - INR 2.1 06/27 - INR 2.1 06/28 - INR 2.6 Risk Factors Assessment Male: No : Yes Do You Have Access To A Gun?: No Health Problems: Yes Mental Health Diagnoses: Yes Substance Use Disorders: No Previous Attempt: Yes Family History of Suicide: No Previous Psychiatric Hospitalization: Yes Hopelessness: Yes Smoker: No Protective Factors Assessment Caodaism Beliefs: Yes : Yes (But and has a new girlfriend) Responsible for Young Children: No Employed: No Stable Relationships: No Supportive Family: Yes Good Rapport with Provider: Yes Interval History Chief Complaint "I think I might be okay". Review of Systems Notes Denies dizziness, falls, dystonia Sleep Information Total Hours of Sleep: 7.5 Sleep Comments: pt on q-15 minute checks Meal Information Percent Meal Consumed - Breakfast: 100 Percent Meal Consumed - Lunch: 100 Percent Meal Consumed - Dinner: 90 Nutrition Comment: per meal log Subjective Subjective Patient was seen & assessed and interval progress reviewed with treatment team. Staff deny evident improvement in affect stability in last 24 hours. She had to leave a group last evening due to emotional duress. Compliant with medications. On initial interview she appears more composed and states that she is feeling "okay" this morning. She denies dizziness or any other physical side effects associated with olanzapine titration. In exploring psychosocial circumstances feelings of guilt reemerge and she becomes more tearful. We spent some time discussing importance of stewardship of thoughts due to her tendency to ruminate. She was able to identify some ways that she feels talita and overall appears a little more hopeful this morning. Physical Exam Psychiatric Orientation: alert and cooperative Apperance: appropriately dressed and appropriately groomed Eye Contact: + fair eye contact Motor Behavior: + tremor; + abnormal motor movements Speech: normal rate/rhythm/volume of speech Slightly less labile but still tearful Mood: + depressed mood Thought Process: + perseveration Thought Content: + preoccupation, + guilt and + self deprecation Suicidal Thoughts: denies suicidal intent; + reports suicidal thoughts Hallucinations: no auditory hallucinations and no visual hallucinations Insight: + fair insight Judgement: + limited judgement Vital Signs (Past 24 Hours) Last Vital Signs Temp 36.7 C 06/28/19 06:41 Pulse 66 06/28/19 06:42 Resp 18 06/28/19 06:41 BP 136/76 06/28/19 06:42 Pulse Ox 98 06/23/19 17:16 Results & Data Laboratory Results Laboratory Results - last 24 hr 06/27/19 06/27/19 06/27/19 12:37 17:17 21:30 PT INR POC Glucose 127 H 166 H 138 H 06/28/19 06/28/19 06:55 08:21 PT 25.1 H INR 2.6 H POC Glucose 79 Current Inpatient Medications Current Inpatient Medications: Current Inpatient Medications Al Hydrox/Mg Hydrox/Simethicone (Maalox) 30 ml PO Q4H PRN PRN Reason: GI Upset Stop: 07/23/19 18:29 Amlodipine Besylate (Norvasc) 5 mg PO BID [facility] Stop: 07/23/19 20:59 Last Admin: 06/28/19 08:39 Dose: 5 mg Documented by: Bupropion HCl (Wellbutrin-Sr) 100 mg PO BIDM JT Stop: 07/24/19 07:59 Last Admin: 06/28/19 08:41 Dose: 100 mg Documented by: Cyanocobalamin (Vitamin B-12) 1,000 mcg PO DAILY JT Stop: 07/24/19 08:59 Last Admin: 06/28/19 08:40 Dose: 1,000 mcg Documented by: Dextrose (Dextrose 50%) 25 - 50 ml IV UD PRN; Protocol PRN Reason: Hypoglycemia Protocol Stop: 07/23/19 19:44 Ergocalciferol (Vitamin D2) 50,000 units PO Mo@0900 [facility] Stop: 07/29/19 08:59 Escitalopram Oxalate (Lexapro Tab) 20 mg PO HS [facility] Stop: 07/23/19 20:59 Last Admin: 06/27/19 21:40 Dose: 20 mg Documented by: Fenofibrate (Tricor) 145 mg PO DAILY JT Stop: 07/23/19 19:59 Last Admin: 06/28/19 08:40 Dose: 145 mg Documented by: Gabapentin (Neurontin) 200 mg PO HS JT Stop: 07/23/19 20:59 Last Admin: 06/27/19 21:40 Dose: 200 mg Documented by: Glipizide (Glucotrol Extended Rel) 5 mg PO QDB JT Stop: 07/24/19 08:59 Last Admin: 06/28/19 08:38 Dose: 5 mg Documented by: Glucagon (Glucagen) 1 mg IM UD PRN; Protocol PRN Reason: Hypoglycemia Protocol Stop: 07/23/19 19:44 Glucose (Glucose 40%) 15 - 30 gm PO UD PRN; Protocol PRN Reason: Hypoglycemia Protocol Stop: 07/23/19 19:44 Glucose (Dex4 Glucose) 4 - 8 tabs PO UD PRN; Protocol PRN Reason: Hypoglycemia Protocol Stop: 07/23/19 19:44 Hydroxyzine HCl (Vistaril) 50 mg PO HSZ PRN PRN Reason: Insomnia Stop: 07/23/19 18:29 Last Admin: 06/25/19 20:01 Dose: 50 mg Documented by: Hydroxyzine HCl (Vistaril) 25 mg PO Q4H PRN PRN Reason: Anxiety Stop: 07/23/19 21:28 Last Admin: 06/27/19 14:55 Dose: 25 mg Documented by: Insulin Glargine (Lantus Solostar Pen) 12 units SQ QPM JT Stop: 07/23/19 20:59 Last Admin: 06/27/19 21:33 Dose: 12 units Documented by: Lamotrigine (Lamictal) 250 mg PO HS [facility] Stop: 07/23/19 20:59 Last Admin: 06/27/19 21:39 Dose: 250 mg Documented by: Losartan Potassium (Cozaar) 100 mg PO QAM JT Stop: 07/24/19 08:59 Last Admin: 06/28/19 08:37 Dose: 100 mg Documented by: Magnesium Hydroxide (Milk Of Magnesia) 30 ml PO DAILY PRN PRN Reason: Constipation Stop: 07/23/19 18:29 Metoprolol Succinate (Toprol Xl) 100 mg PO BID JT Stop: 07/23/19 20:59 Last Admin: 06/28/19 08:39 Dose: 100 mg Documented by: Miscellaneous (Carbohydrates For Hypoglycemia) 15 - 30 gm PO UD PRN PRN Reason: Hypoglycemia Treatment Stop: 07/23/19 19:44 Nitroglycerin (Nitrostat) 0.4 mg SL Q5M PRN PRN Reason: chest pain Stop: 07/23/19 18:33 Olanzapine (Zyprexa) 2.5 mg PO BID JT Stop: 07/27/19 20:59 Last Admin: 06/28/19 08:41 Dose: 2.5 mg Documented by: Pantoprazole Sodium (Protonix) 40 mg PO DAILY JT Stop: 07/24/19 08:59 Last Admin: 06/28/19 08:39 Dose: 40 mg Documented by: Pravastatin Sodium (Pravachol) 20 mg PO QPM JT Stop: 07/23/19 20:59 Last Admin: 06/27/19 21:37 Dose: 20 mg Documented by: Propranolol HCl (Inderal La) 60 mg PO DAILY JT Stop: 07/24/19 08:59 Last Admin: 06/28/19 08:38 Dose: 60 mg Documented by: Ropinirole HCl (Requip) 0.25 mg PO QAM JT Stop: 07/24/19 08:59 Last Admin: 06/28/19 08:39 Dose: 0.25 mg Documented by: Ropinirole HCl (Requip) 0.5 mg PO HS JT Stop: 07/23/19 20:59 Last Admin: 06/27/19 21:41 Dose: 0.5 mg Documented by: Sodium Chloride (Holmes Nasal) 1 - 2 sprays NA PRN PRN PRN Reason: Nasal Dryness/Congestion Stop: 07/23/19 18:29 Sucralfate (Carafate Tab) 1 gm PO ACHS JT Stop: 07/23/19 20:59 Last Admin: 06/28/19 08:37 Dose: 1 gm Documented by: Torsemide (Demadex) 20 mg PO DAILY JT Stop: 07/24/19 08:59 Last Admin: 06/28/19 08:37 Dose: 20 mg Documented by: Warfarin Sodium (Coumadin) 4 mg PO HS JT Stop: 07/23/19 20:59 Last Admin: 06/27/19 21:38 Dose: 4 mg Documented by: Mental Health & Subst Abuse Tx Psychiatrist Name of Psychiatrist: Charanjit Candelaria - Dr. Nelson Psychiatrist's Psychiatric Appointment Comment: [address] [facility], [address], [place] Therapist Name of Therapist: Annette Cash, private practice in [place], [facility] next Saturday Therapist's Date of Therapist Appointment: 07/01/19 Therapy Appointment Comment: [address] [facility], [facility] [address], [place] [address] Mica Patcher Name of Mica Patcher: BOZENA Grey Post Discharge Appointments Primary Care Physician Name Of Family Doctor: Dr. Bird, [place] Primary Care Provider Appointment Comment: [address] [place] [address] Neurologist Name of Neurologist: Dr. Blankenship Neurologist's Neurology Appointment Comment: [address] [place], [place] Contact Information Discharge Discharge Address: [address] [place] [id number] (1) Bipolar disorder Active/Remission status: currently active Current bipolar episode type: depressed Current episode severity: severe Psychotic features: without psychotic features Qualified Code(s): F31.4 - Bipolar disorder, current episode depressed, severe, without psychotic features
[2019-06-28] MEDS: lamoTRIgine 100 MG TAB PO SCH ×2 (10:56→21:48)
[2019-06-28] MEDS: WARFARIN SOD 4 MG TAB PO SCH (21:47)
[2019-06-28] MEDS: ESCITALOPRAM OXALATE 20 MG TAB PO SCH (21:49)
[2019-06-28] MEDS: GABAPENTIN 100 MG CAP PO SCH (21:49)
[2019-06-28] MEDS: PRAVASTATIN SOD 20 MG TAB PO SCH (21:54)
[2019-06-28] MEDS: INSULIN GLARGINE SOLOSTAR 100 UNITS/ML 3 ML PEN SQ SCH (21:56)
[2019-06-29] MEDS ORDERED: ERGOCALCIFEROL 50,000 UNITS CAP PO SCH (09:00)
[2019-06-29] MEDS: SUCRALFATE 1 GM TAB PO SCH ×4 (09:33→20:46)
[2019-06-29] MEDS: LOSARTAN POTASSIUM 50 MG TAB PO SCH (09:33)
[2019-06-29] MEDS: TORSEMIDE 10 MG TAB PO SCH (09:34)
[2019-06-29] MEDS: glipiZIDE ER 2.5 MG TABCR PO SCH (09:35)
[2019-06-29] MEDS: PROPRANOLOL HCL 60 MG LA CAP PO SCH (09:35)
[2019-06-29] MEDS: lamoTRIgine 100 MG TAB PO SCH ×2 (09:38→20:46)
[2019-06-29] MEDS: AMLODIPINE BESYLATE 5 MG TAB PO SCH ×2 (09:38→20:45)
[2019-06-29] MEDS: ROPINIROLE HCL 0.25 MG TABLET PO SCH ×2 (09:39→20:47)
[2019-06-29] MEDS: PANTOprazole 40 MG TAB PO SCH (09:39)
[2019-06-29] MEDS: METOPROLOL SUCC 50MG EXT REL TAB PO SCH ×2 (09:40→20:45)
[2019-06-29] MEDS: FENOFIBRATE NANOCRYSTALLIZED 145 MG TABLET PO SCH (09:41)
[2019-06-29] MEDS: CYANOCOBALAMIN 500 MCG TABLET (VITAMIN B-12) PO SCH (09:42)
[2019-06-29] MEDS: BuPROPion SR 100 MG TABCR PO SCH ×2 (09:42→17:06)
[2019-06-29] MEDS: OLANZAPINE 2.5 MG TAB PO SCH ×2 (09:43→20:46)
--- NOTE | 2019-06-29 13:10 | Psychiatric Progress Note ---
Date of Service June 29, 2019 Impression / Recommendations (1) Bipolar disorder: 06/24 - Continue escitalopram 20 mg, lamotrigine 250 mg at bedtime, and bupropion SR 100 mg twice daily. She was recently switched from citalopram to escitalopram after discussion with her PCP, due to cardiac risk. -Have considered alternative mood stabilizers/medications to target bipolar depression including lithium and atypical antipsychotics, but concerns include multiple unstable medical comorbidities, difficulties with medication adherence, and cognitive impairment. She had worsening tremor on lithium, and side effects with aripiprazole and quetiapine. She has not had a trial of lurasidone, which would be reasonable to consider. I do think there is an [place] II component to her mood symptoms as well, I would like to try addressing current decompensation through nonpharmacologic methods prior to changing medications due to aforementioned concerns. -Care coordinated with her outpatient therapist, Annette Rousseau -next appointment is 07/01/2019 at 10 AM. Recommend referral for a blended case management, to increase supports in her area, and explore options for transportation. 06/25 -Long-standing bipolar diagnosis. No med changes admission and will continue to monitor for another 24 hours before we consider additional pharmacotherapy. Patient unfortunately is a fairly poor historian guarding prior psychiatric treatment. I agree with Dr. Nelson that he does appear likely a long-standing cluster B personality component to her mood instability and feelings of abandonment likely recently exacerbated related to her 's new relationship 06/26 -Due to the severity of her emotional distress, will trial olanzapine 1.25 mg twice daily taken mid day and bedtime for additional mood stabilization/augmentation and off label anxiolysis. This agent was chosen for lower risk for EPS, calming effect profile, and likely quick onset of action. Unfavorably it as a relatively high risk of metabolic side effects and patient does have a history of diabetes and dyslipidemia which was discussed in detail with the patient and she was accepting of this risk. If she does gain weight on the olanzapine this potentially could be a temporary intervention to help her during this transitional time. 06/27 -Increase olanzapine to 2.5 mg p.o. twice daily -will further review treatment history and consider alternative antidepressant options (known prior antidepressant tx: celexa, lexapro, remeron, wellbutrin. depakote, lithium, abilify worsened tremor. seroquel not effective. on lamictal now.) - important to note that mood lability and suicidality dates back to teens 06/28 -Appearing a little more composed on increased olanzapine so far which appears well-tolerated -We will attempt to maximize therapeutic benefit from lamotrigine increasing to 100 mg in the morning and 200 mg at night. Common risks and benefits of that medication were reviewed. Can consider checking a level prior to discharge to see if there is room for further titration. She reports a history of good tolerability of this medication. -As patient's outpatient psychiatrist will be returning tomorrow, I will defer alternative antidepressant choice to her judgment. 06/29 - Having a difficult day today, as patient is attempting to make a decision about her housing options for discharge - Reporting strong feelings of hopelessness, "I don't want to live in this place of feeling anymore" - She is reportedly tolerating medication adjustments and will continue at this time - Continue to assist patient is discharge and safety planning - Family meeting with [id number] and granddaughter was held yesterday (2) Generalized anxiety disorder: 06/24 -continue SSRI and hydroxyzine 25 mg 3 times daily as needed anxiety. Work on healthy coping skills and ways to manage anxiety. She has benefited from doing daily devotion/journaling before. (3) Cognitive disorder: 06/24 -has seen a neurologist, Dr. Mayen, in [place]. Had a brain MRI which showed microvascular change, EEG showed evidence of encephalopathy. Cognitive function clearly worsens when she is decompensated psychiatrically, and she was previously on benzodiazepines which have since been tapered off. Her initial MOCA in 11/2018 was 17/30, and in 12/2018 was 23/30. Centrally acting medications had been reduced and anxiety was improved at that time. -Will recheck MOCA here once anxiety is under better control. -Patient agrees not to drive until she has stabilized both medically and psychiatrically. 06/25 -Patient reports she is being followed by neurology in [place]. Presently I am uncertain of most recent neuroimaging results however it appears she has known history of microvascular changes. She certainly has risk factors for cerebrovascular disease. Lower extremity movements have a choreiform character. Consider possibility of late onset Dianne's chorea particularly as family history is unknown related to symptom cluster of chorea, personality change, mood lability, executive dysfunction, mild cognitive impairment. Would be helpful to review if evidence of caudate atrophy on imaging. 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 Work on healthy coping skills (5) Hypercholesterolemia: Continue home dose of TriCor (6) Diabetes mellitus: 06/24 - Diabetic diet, continue insulin, consult diabetic pharmacist and educator at patient's request 06/26 - sugars stable (7) Restless leg syndrome: Continue Requip and gabapentin at bedtime (8) Vitamin D deficiency: Continue supplementation (9) Coronary artery disease: Continue metoprolol XL, Norvasc, propanolol, and Cozaar (10) Warfarin anticoagulation: Continue home dose of Coumadin, and check INR daily. 2.3 on admission, 2.0 today. 06/25 - INR 2.2 06/26 - INR 2.1 06/27 - INR 2.1 06/28 - INR 2.6 Risk Factors Assessment Male: No : Yes Do You Have Access To A Gun?: No Health Problems: Yes Mental Health Diagnoses: Yes Substance Use Disorders: No Previous Attempt: Yes Family History of Suicide: No Previous Psychiatric Hospitalization: Yes Hopelessness: Yes Smoker: No Protective Factors Assessment Christianity Beliefs: Yes : Yes (But and has a new girlfriend) Responsible for Young Children: No Employed: No Stable Relationships: No Supportive Family: Yes Good Rapport with Provider: Yes Interval History Identifying Information MORENA HERNANDEZ is a 73-year-old F who currently lives alone in [place], has a history of bipolar disorder type I, generalized anxiety disorder, cognitive disorder NOS, and dependent and borderline personality traits as well as multiple medical problems including hypertension, hypercholesterolemia, type 2 diabetes, obesity, and stroke who was admitted on 06/23/19 18:30 on a 201 voluntary commitment for worsening mood and suicidal thoughts. Chief Complaint "Well, I don't think things have been very good." Review of Systems Notes Constitutional: reports poor sleep Cardiovascular: denied Respiratory: denied Gastrointestinal: denied Neurological: denied Psychiatric: denies symptoms other than stated above Total of at least 10 systems reviewed, pertinent positives as above and in HPI. Sleep Information Total Hours of Sleep: 7 Sleep Comments: pt on q-15 minute checks Meal Information Percent Meal Consumed - Breakfast: 75 Percent Meal Consumed - Lunch: 100 Percent Meal Consumed - Dinner: 100 Nutrition Comment: per meal log Subjective Subjective Patient was seen & assessed and interval progress reviewed with treatment team. Staff reports the patient had a meeting yesterday with her [id number] and granddaughter. They discussed housing options at discharge, which included consideration to move into the farmhouse the patient's is currently occupying. Patient has reportedly been tearful for several days, and is having difficulty today processing a lot of guilt related to her current situation. Patient was seen today to assess progress since admission. She shares with this provider that "I do not think things are going very good." Patient updates this provider about her "failed marriage, housing issues, and other stuff." Patient states, "everyone keeps telling me it will be all right, that things will get better. I just do not believe that that is true. All I can do is cry. I do not sleep well." Patient becomes very tearful during our conversation, and states "I do not want to live in this place of feeling anymore." She admits to increased hopelessness and little motivation to continue living. Patient denies active suicidal ideation, but does state multiple times during our conversation that she does not want to continue living. Patient denies any significant caleb rns related to medication adjustments over the last several days. She is agreeable to continuing to discuss aftercare and discharge planning with our social work team. She denies other acute needs or concerns today. Physical Exam Psychiatric Orientation: alert and cooperative Apperance: appropriately dressed (Casually, in turtleneck and leggings) and appropriately groomed Eye Contact: + fair eye contact Motor Behavior: steady gait and station (Cautions but stable ambulation), no abnormal motor movements and + tremor Speech: normal rate/rhythm/volume of speech Affect: + depressed affect, + tearful affect (Crying for the duration of conversation) and mood congruent with affect Mood: + depressed mood ("All I can do is cry") Thought Process: + perseveration Thought Content: + preoccupation, + hopelessness, + worthlessness, + loneliness, + guilt and + self deprecation Suicidal Thoughts: denies suicidal intent; + reports suicidal thoughts Patient reports multiple times during conversation that she no longer wishes to be alive. She denies specific plans, and states "I would never do that to myself". She verbalizes significant hopelessness Homicidal Thoughts: denies homicidal thoughts Hallucinations: no auditory hallucinations and no visual hallucinations Cognition: attention grossly intact Insight: + limited insight Judgement: + limited judgement Vital Signs (Past 24 Hours) Last Vital Signs Temp 36.4 C L 06/29/19 06:48 Pulse 73 06/29/19 06:48 Resp 18 06/29/19 06:48 BP 134/60 06/29/19 06:48 Pulse Ox 98 06/23/19 17:16 Results & Data Laboratory Results Laboratory Results - last 24 hr 06/28/19 06/29/19 06/29/19 21:10 08:12 12:37 POC Glucose 119 H 87 113 H Current Inpatient Medications Current Inpatient Medications: Current Inpatient Medications Al Hydrox/Mg Hydrox/Simethicone (Maalox) 30 ml PO Q4H PRN PRN Reason: GI Upset Stop: 07/23/19 18:29 Amlodipine Besylate (Norvasc) 5 mg PO BID JT Stop: 07/23/19 20:59 Last Admin: 06/29/19 09:38 Dose: 5 mg Documented by: Bupropion HCl (Wellbutrin-Sr) 100 mg PO BIDM JT Stop: 07/24/19 07:59 Last Admin: 06/29/19 09:42 Dose: 100 mg Documented by: Cyanocobalamin (Vitamin B-12) 1,000 mcg PO DAILY JT Stop: 07/24/19 08:59 Last Admin: 06/29/19 09:42 Dose: 1,000 mcg Documented by: Dextrose (Dextrose 50%) 25 - 50 ml IV UD PRN; Protocol PRN Reason: Hypoglycemia Protocol Stop: 07/23/19 19:44 Ergocalciferol (Vitamin D2) 50,000 units PO Mo@0900 JT Stop: 07/29/19 08:59 Last Admin: 06/29/19 09:41 Dose: 50,000 units Documented by: Escitalopram Oxalate (Lexapro Tab) 20 mg PO HS JT Stop: 07/23/19 20:59 Last Admin: 06/28/19 21:49 Dose: 20 mg Documented by: Fenofibrate (Tricor) 145 mg PO DAILY JT Stop: 07/23/19 19:59 Last Admin: 06/29/19 09:41 Dose: 145 mg Documented by: Gabapentin (Neurontin) 200 mg PO HS JT Stop: 07/23/19 20:59 Last Admin: 06/28/19 21:49 Dose: 200 mg Documented by: Glipizide (Glucotrol Extended Rel) 5 mg PO QDB JT Stop: 07/24/19 08:59 Last Admin: 06/29/19 09:35 Dose: 5 mg Documented by: Glucagon (Glucagen) 1 mg IM UD PRN; Protocol PRN Reason: Hypoglycemia Protocol Stop: 07/23/19 19:44 Glucose (Glucose 40%) 15 - 30 gm PO UD PRN; Protocol PRN Reason: Hypoglycemia Protocol Stop: 07/23/19 19:44 Glucose (Dex4 Glucose) 4 - 8 tabs PO UD PRN; Protocol PRN Reason: Hypoglycemia Protocol Stop: 07/23/19 19:44 Hydroxyzine HCl (Vistaril) 50 mg PO HSZ PRN PRN Reason: Insomnia Stop: 07/23/19 18:29 Last Admin: 06/28/19 22:25 Dose: 50 mg Documented by: Hydroxyzine HCl (Vistaril) 25 mg PO Q4H PRN PRN Reason: Anxiety Stop: 07/23/19 21:28 Last Admin: 06/27/19 14:55 Dose: 25 mg Documented by: Insulin Glargine (Lantus Solostar Pen) 12 units SQ QPM JT Stop: 07/23/19 20:59 Last Admin: 06/28/19 21:56 Dose: 12 units Documented by: Lamotrigine (Lamictal) 200 mg PO HS JT Stop: 07/28/19 21:59 Last Admin: 06/28/19 21:48 Dose: 200 mg Documented by: Lamotrigine (Lamictal) 100 mg PO QAM JT Stop: 07/28/19 09:44 Last Admin: 06/29/19 09:38 Dose: 100 mg Documented by: Losartan Potassium (Cozaar) 100 mg PO QAM JT Stop: 07/24/19 08:59 Last Admin: 06/29/19 09:33 Dose: 100 mg Documented by: Magnesium Hydroxide (Milk Of Magnesia) 30 ml PO DAILY PRN PRN Reason: Constipation Stop: 07/23/19 18:29 Metoprolol Succinate (Toprol Xl) 100 mg PO BID JT Stop: 07/23/19 20:59 Last Admin: 06/29/19 09:40 Dose: 100 mg Documented by: Miscellaneous (Carbohydrates For Hypoglycemia) 15 - 30 gm PO UD PRN PRN Reason: Hypoglycemia Treatment Stop: 07/23/19 19:44 Nitroglycerin (Nitrostat) 0.4 mg SL Q5M PRN PRN Reason: chest pain Stop: 07/23/19 18:33 Olanzapine (Zyprexa) 2.5 mg PO BID JT Stop: 07/27/19 20:59 Last Admin: 06/29/19 09:43 Dose: 2.5 mg Documented by: Pantoprazole Sodium (Protonix) 40 mg PO DAILY JT Stop: 07/24/19 08:59 Last Admin: 06/29/19 09:39 Dose: 40 mg Documented by: Pravastatin Sodium (Pravachol) 20 mg PO QPM JT Stop: 07/23/19 20:59 Last Admin: 06/28/19 21:54 Dose: 20 mg Documented by: Propranolol HCl (Inderal La) 60 mg PO DAILY JT Stop: 07/24/19 08:59 Last Admin: 06/29/19 09:35 Dose: 60 mg Documented by: Ropinirole HCl (Requip) 0.25 mg PO QAM JT Stop: 07/24/19 08:59 Last Admin: 06/29/19 09:39 Dose: 0.25 mg Documented by: Ropinirole HCl (Requip) 0.5 mg PO HS JT Stop: 07/23/19 20:59 Last Admin: 06/28/19 21:51 Dose: 0.5 mg Documented by: Sodium Chloride ([place] Nasal) 1 - 2 sprays NA PRN PRN PRN Reason: Nasal Dryness/Congestion Stop: 07/23/19 18:29 Sucralfate (Carafate Tab) 1 gm PO ACHS JT Stop: 07/23/19 20:59 Last Admin: 06/29/19 12:38 Dose: 1 gm Documented by: Torsemide (Demadex) 20 mg PO DAILY JT Stop: 07/24/19 08:59 Last Admin: 06/29/19 09:34 Dose: 20 mg Documented by: Warfarin Sodium (Coumadin) 4 mg PO HS JT Stop: 07/23/19 20:59 Last Admin: 06/28/19 21:47 Dose: 4 mg Documented by: Mental Health & Subst Abuse Tx Psychiatrist Name of Psychiatrist: [facility] - Dr. Nelson Psychiatrist's Date of Appointment with Psychiatrist: 07/09/19 Time of Appointment with Psychiatrist: 3:10pm Psychiatric Appointment Comment: [address], [address] Therapist Name of Therapist: Annette Cash, private practice in [place], [facility] next Saturday Therapist's Date of Therapist Appointment: 07/01/19 Therapy Appointment Comment: [address], [facility] [address] [address] [employer] Supervisor Name of [employer] Supervisor: BOZENA Grey Phone Number for [employer] Supervisor: [phone] Post Discharge Appointments Primary Care Physician Name Of Family Doctor: Dr. Bird [place] Primary Care Provider Appointment Comment: [address] [place] [address] Neurologist Name of Neurologist: Dr. Blankenship Neurologist's Neurology Appointment Comment: [address] [facility] [place] Contact Information Discharge Discharge Address: . (1) Bipolar disorder Active/Remission status: currently active Current bipolar episode type: depressed Current episode severity: severe Psychotic features: without psychotic features Qualified Code(s): F31.4 - Bipolar disorder, current episode depressed, severe, without psychotic features
[2019-06-29] MEDS: INSULIN GLARGINE SOLOSTAR 100 UNITS/ML 3 ML PEN SQ SCH (20:43)
[2019-06-29] MEDS: PRAVASTATIN SOD 20 MG TAB PO SCH (20:45)
[2019-06-29] MEDS: WARFARIN SOD 4 MG TAB PO SCH (20:46)
[2019-06-29] MEDS: GABAPENTIN 100 MG CAP PO SCH (20:47)
[2019-06-29] MEDS: ESCITALOPRAM OXALATE 20 MG TAB PO SCH (20:47)
[2019-06-30 07:06] LABS: INR 3.5 (0.9-1.1); Prothrombin Time 32.5 Seconds (9.0-12.0)
[2019-06-30] MEDS: LOSARTAN POTASSIUM 50 MG TAB PO SCH (09:33)
[2019-06-30] MEDS: SUCRALFATE 1 GM TAB PO SCH ×4 (09:33→21:49)
[2019-06-30] MEDS: TORSEMIDE 10 MG TAB PO SCH (09:33)
[2019-06-30] MEDS: glipiZIDE ER 2.5 MG TABCR PO SCH (09:33)
[2019-06-30] MEDS: PROPRANOLOL HCL 60 MG LA CAP PO SCH (09:33)
[2019-06-30] MEDS: lamoTRIgine 100 MG TAB PO SCH ×2 (09:34→21:48)
[2019-06-30] MEDS: PANTOprazole 40 MG TAB PO SCH (09:34)
[2019-06-30] MEDS: ROPINIROLE HCL 0.25 MG TABLET PO SCH ×2 (09:34→21:48)
[2019-06-30] MEDS: OLANZAPINE 2.5 MG TAB PO SCH ×2 (09:34→21:50)
[2019-06-30] MEDS: AMLODIPINE BESYLATE 5 MG TAB PO SCH ×2 (09:34→21:50)
[2019-06-30] MEDS: CYANOCOBALAMIN 500 MCG TABLET (VITAMIN B-12) PO SCH (09:35)
[2019-06-30] MEDS: METOPROLOL SUCC 50MG EXT REL TAB PO SCH ×2 (09:35→21:50)
[2019-06-30] MEDS: BuPROPion SR 100 MG TABCR PO SCH ×2 (09:35→17:39)
[2019-06-30] MEDS: FENOFIBRATE NANOCRYSTALLIZED 145 MG TABLET PO SCH (09:35)
--- NOTE | 2019-06-30 12:49 | Psychiatric Progress Note ---
Date of Service June 30, 2019 Impression / Recommendations (1) Bipolar disorder: 06/24 - Continue escitalopram 20 mg, lamotrigine 250 mg at bedtime, and bupropion SR 100 mg twice daily. She was recently switched from citalopram to escitalopram after discussion with her PCP, due to cardiac risk. -Have considered alternative mood stabilizers/medications to target bipolar depression including lithium and atypical antipsychotics, but concerns include multiple unstable medical comorbidities, difficulties with medication adherence, and cognitive impairment. She had worsening tremor on lithium, and side effects with aripiprazole and quetiapine. She has not had a trial of lurasidone, which would be reasonable to consider. I do think there is an [place] II component to her mood symptoms as well, I would like to try addressing current decompensation through nonpharmacologic methods prior to changing medications due to aforementioned concerns. -Care coordinated with her outpatient therapist, Annette Rousseau -next appointment is 07/01/2019 at 10 AM. Recommend referral for a blended case management, to increase supports in her area, and explore options for transportation. 06/25 -Long-standing bipolar diagnosis. No med changes admission and will continue to monitor for another 24 hours before we consider additional pharmacotherapy. Patient unfortunately is a fairly poor historian guarding prior psychiatric treatment. I agree with Dr. Neslon that he does appear likely a long-standing cluster B personality component to her mood instability and feelings of abandonment likely recently exacerbated related to her 's new relationship 06/26 -Due to the severity of her emotional distress, will trial olanzapine 1.25 mg twice daily taken mid day and bedtime for additional mood stabilization/augmentation and off label anxiolysis. This agent was chosen for lower risk for EPS, calming effect profile, and likely quick onset of action. Unfavorably it as a relatively high risk of metabolic side effects and patient does have a history of diabetes and dyslipidemia which was discussed in detail with the patient and she was accepting of this risk. If she does gain weight on the olanzapine this potentially could be a temporary intervention to help her during this transitional time. 06/27 -Increase olanzapine to 2.5 mg p.o. twice daily -will further review treatment history and consider alternative antidepressant options (known prior antidepressant tx: celexa, lexapro, remeron, wellbutrin. depakote, lithium, abilify worsened tremor. seroquel not effective. on lamictal now.) - important to note that mood lability and suicidality dates back to teens 06/28 -Appearing a little more composed on increased olanzapine so far which appears well-tolerated -We will attempt to maximize therapeutic benefit from lamotrigine increasing to 100 mg in the morning and 200 mg at night. Common risks and benefits of that medication were reviewed. Can consider checking a level prior to discharge to see if there is room for further titration. She reports a history of good tolerability of this medication. -As patient's outpatient psychiatrist will be returning tomorrow, I will defer alternative antidepressant choice to her judgment. 06/29 - Having a difficult day today, as patient is attempting to make a decision about her housing options for discharge - Reporting strong feelings of hopelessness, "I don't want to live in this place of feeling anymore" - She is reportedly tolerating medication adjustments and will continue at this time - Continue to assist patient is discharge and safety planning - Family meeting with [id number] and granddaughter was held yesterday 06/30 - Reporting improved mood today, tolerating medication adjustments - Fasting glucose and lipid panel ordered for tomorrow morning to allow for monitoring of metabolic symptoms related to olanzapine initiation - Continue to encourage conversation regarding housing options, patient recognizing it is not ideal for her to be regularly in contact with her ex- (2) Generalized anxiety disorder: 06/24 -continue SSRI and hydroxyzine 25 mg 3 times daily as needed anxiety. Work on healthy coping skills and ways to manage anxiety. She has benefited from doing daily devotion/journaling before. (3) Cognitive disorder: 06/24 -has seen a neurologist, Dr. Mayen, in [place]. Had a brain MRI which showed microvascular change, EEG showed evidence of encephalopathy. Cognitive function clearly worsens when she is decompensated psychiatrically, and she was previously on benzodiazepines which have since been tapered off. Her initial MOCA in 11/2018 was 17/30, and in 12/2018 was 23/30. Centrally acting medications had been reduced and anxiety was improved at that time. -Will recheck MOCA here once anxiety is under better control. -Patient agrees not to drive until she has stabilized both medically and psychiatrically. 06/25 -Patient reports she is being followed by neurology in [place]. Presently I am uncertain of most recent neuroimaging results however it appears she has known history of microvascular changes. She certainly has risk factors for cerebrovascular disease. Lower extremity movements have a choreiform character. Consider possibility of late onset Dianne's chorea particularly as family history is unknown related to symptom cluster of chorea, personality change, mood lability, executive dysfunction, mild cognitive impairment. Would be helpful to review if evidence of caudate atrophy on imaging. 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 Work on healthy coping skills (5) Hypercholesterolemia: Continue home dose of TriCor 06/30 - Fasting lipid panel tomorrow morning, as above (6) Diabetes mellitus: 06/24 - Diabetic diet, continue insulin, consult diabetic pharmacist and educator at patient's request 06/26 - sugars stable 06/30 - Fasting glucose tomorrow morning, as above (7) Restless leg syndrome: Continue Requip and gabapentin at bedtime (8) Vitamin D deficiency: Continue supplementation (9) Coronary artery disease: Continue metoprolol XL, Norvasc, propanolol, and Cozaar (10) Warfarin anticoagulation: Continue home dose of Coumadin, and check INR daily. 2.3 on admission, 2.0 today. 06/25 - INR 2.2 06/26 - INR 2.1 06/27 - INR 2.1 06/28 - INR 2.6 06/30 - INR 3.5 - Per anticoagulation protocol, Coumadin should be held when INR is above 3.5 Risk Factors Assessment Male: No : Yes Do You Have Access To A Gun?: No Health Problems: Yes Mental Health Diagnoses: Yes Substance Use Disorders: No Previous Attempt: Yes Family History of Suicide: No Previous Psychiatric Hospitalization: Yes Hopelessness: Yes Smoker: No Protective Factors Assessment Bahai Beliefs: Yes : Yes (But and has a new girlfriend) Responsible for Young Children: No Employed: No Stable Relationships: No Supportive Family: Yes Good Rapport with Provider: Yes Interval History Identifying Information MORENA HERNANDEZ is a 73-year-old F who currently lives alone in [place], has a history of bipolar disorder type I, generalized anxiety disorder, cognitive disorder NOS, and dependent and borderline personality traits as well as multiple medical problems including hypertension, hypercholesterolemia, type 2 diabetes, obesity, and stroke who was admitted on 06/23/19 18:30 on a 201 voluntary commitment for worsening mood and suicidal thoughts. Chief Complaint "Better. I think I've just been consigned to the fact that where ever I go is going to be a change." Review of Systems Notes Constitutional: reports episodic dizziness Cardiovascular: denied Respiratory: denied Gastrointestinal: denied Neurological: denied Psychiatric: denies symptoms other than stated above Total of at least 10 systems reviewed, pertinent positives as above and in HPI. Sleep Information Total Hours of Sleep: 6.5 Sleep Comments: pt on q-15 minute checks Meal Information Percent Meal Consumed - Breakfast: 75 Percent Meal Consumed - Lunch: 100 Percent Meal Consumed - Dinner: 100 Nutrition Comment: per meal log Subjective Subjective Patient was seen & assessed and interval progress reviewed with nursing and social work. Staff reports the patient continues to be uncertain about her housing options after discharge, which remains a source of stress. She had reported intermittent dizziness throughout last evening. Pt seen today to assess progress since admission. She reports today is feeling "better". She admits that she is coming to the realization that no matter what the discharge plan is, that "where ever I go it will be a change." She reports she is taking things "moment by moment." She continues to verbalize a belief that "people have just stamped 'I'm ok' on my face, and expected me to act like it." Pt does admit that she has noticed some improvement in her mood since yesterday. She admits to continued "apprehension about discharge." Although patient is denying active SI, she continues to feel as though she would not be able to contract for safety outside of the inpatient setting. She denies other needs or concerns today. Physical Exam Psychiatric Orientation: alert, oriented x 3 and cooperative (and pleasant) Apperance: appropriately dressed (but clothing heavily stained with what appears to be food particles/liquids), appropriately groomed and appeared stated age Eye Contact: good eye contact Motor Behavior: steady gait and station and no abnormal motor movements Speech: normal rate/rhythm/volume of speech Affect: + depressed affect, + anxious affect, + tearful affect (far less tearful today, crying only briefly at end of session) and mood congruent with affect Mood: + depressed mood and + anxious mood Thought Process: goal directed thought process, + concrete thought process and thought association intact Thought Content: reality based without delusions, + hopelessness, + loneliness and + guilt Suicidal Thoughts: denies suicidal thoughts (Reports ongoing hopelessness, but no active SI today) and denies suicidal intent Homicidal Thoughts: denies homicidal thoughts Hallucinations: no auditory hallucinations and no visual hallucinations Cognition: attention grossly intact and language grossly intact Insight: + limited insight Judgement: + limited judgement Vital Signs (Past 24 Hours) Last Vital Signs Temp 36.6 C 06/30/19 06:00 Pulse 112 H 06/30/19 06:37 Resp 18 06/30/19 06:00 BP 129/82 06/30/19 06:37 Pulse Ox 97 06/29/19 15:39 Results & Data Laboratory Results Laboratory Results - last 24 hr 06/23/19 06/29/19 06/29/19 15:16 17:02 20:37 PT INR POC Glucose 108 H 156 H U MDMA (Ecstasy), Quant REPORT 06/30/19 06/30/19 06/30/19 06:39 07:53 12:42 PT 32.5 H INR 3.5 H POC Glucose 78 Pending U MDMA (Ecstasy), Quant Current Inpatient Medications Current Inpatient Medications: Current Inpatient Medications Al Hydrox/Mg Hydrox/Simethicone (Maalox) 30 ml PO Q4H PRN PRN Reason: GI Upset Stop: 07/23/19 18:29 Last Admin: 06/29/19 15:34 Dose: 30 ml Documented by: Amlodipine Besylate (Norvasc) 5 mg PO BID [facility] Stop: 07/23/19 20:59 Last Admin: 06/30/19 09:34 Dose: 5 mg Documented by: Bupropion HCl (Wellbutrin-Sr) 100 mg PO BIDM [facility]1983 Stop: 07/24/19 07:59 Last Admin: 06/30/19 09:35 Dose: 100 mg Documented by: Cyanocobalamin (Vitamin B-12) 1,000 mcg PO DAILY [facility]1983 Stop: 07/24/19 08:59 Last Admin: 06/30/19 09:35 Dose: 1,000 mcg Documented by: Dextrose (Dextrose 50%) 25 - 50 ml IV UD PRN; Protocol PRN Reason: Hypoglycemia Protocol Stop: 07/23/19 19:44 Ergocalciferol (Vitamin D2) 50,000 units PO Mo@0900 [facility] Stop: 07/29/19 08:59 Last Admin: 06/29/19 09:41 Dose: 50,000 units Documented by: Escitalopram Oxalate (Lexapro Tab) 20 mg PO HS [facility] Stop: 07/23/19 20:59 Last Admin: 06/29/19 20:47 Dose: 20 mg Documented by: Fenofibrate (Tricor) 145 mg PO DAILY JT Stop: 07/23/19 19:59 Last Admin: 06/30/19 09:35 Dose: 145 mg Documented by: Gabapentin (Neurontin) 200 mg PO [facility] Stop: 07/23/19 20:59 Last Admin: 06/29/19 20:47 Dose: 200 mg Documented by: Glipizide (Glucotrol Extended Rel) 5 mg PO QDB [facility] Stop: 07/24/19 08:59 Last Admin: 06/30/19 09:33 Dose: 5 mg Documented by: Glucagon (Glucagen) 1 mg IM UD PRN; Protocol PRN Reason: Hypoglycemia Protocol Stop: 07/23/19 19:44 Glucose (Glucose 40%) 15 - 30 gm PO UD PRN; Protocol PRN Reason: Hypoglycemia Protocol Stop: 07/23/19 19:44 Glucose (Dex4 Glucose) 4 - 8 tabs PO UD PRN; Protocol PRN Reason: Hypoglycemia Protocol Stop: 07/23/19 19:44 Hydroxyzine HCl (Vistaril) 50 mg PO HSZ PRN PRN Reason: Insomnia Stop: 07/23/19 18:29 Last Admin: 06/29/19 22:05 Dose: 50 mg Documented by: Hydroxyzine HCl (Vistaril) 25 mg PO Q4H PRN PRN Reason: Anxiety Stop: 07/23/19 21:28 Last Admin: 06/29/19 14:04 Dose: 25 mg Documented by: Insulin Glargine (Lantus Solostar Pen) 12 units SQ QPM JT Stop: 07/23/19 20:59 Last Admin: 06/29/19 20:43 Dose: 12 units Documented by: Lamotrigine (Lamictal) 200 mg PO [facility] Stop: 07/28/19 21:59 Last Admin: 06/29/19 20:46 Dose: 200 mg Documented by: Lamotrigine (Lamictal) 100 mg PO QAM JT Stop: 07/28/19 09:44 Last Admin: 06/30/19 09:34 Dose: 100 mg Documented by: Losartan Potassium (Cozaar) 100 mg PO QAM JT Stop: 07/24/19 08:59 Last Admin: 06/30/19 09:33 Dose: 100 mg Documented by: Magnesium Hydroxide (Milk Of Magnesia) 30 ml PO DAILY PRN PRN Reason: Constipation Stop: 07/23/19 18:29 Metoprolol Succinate (Toprol Xl) 100 mg PO BID JT Stop: 07/23/19 20:59 Last Admin: 06/30/19 09:35 Dose: 100 mg Documented by: Miscellaneous (Carbohydrates For Hypoglycemia) 15 - 30 gm PO UD PRN PRN Reason: Hypoglycemia Treatment Stop: 07/23/19 19:44 Nitroglycerin (Nitrostat) 0.4 mg SL Q5M PRN PRN Reason: chest pain Stop: 07/23/19 18:33 Olanzapine (Zyprexa) 2.5 mg PO BID JT Stop: 07/27/19 20:59 Last Admin: 06/30/19 09:34 Dose: 2.5 mg Documented by: Pantoprazole Sodium (Protonix) 40 mg PO DAILY JT Stop: 07/24/19 08:59 Last Admin: 06/30/19 09:34 Dose: 40 mg Documented by: Pravastatin Sodium (Pravachol) 20 mg PO QPM JT Stop: 07/23/19 20:59 Last Admin: 06/29/19 20:45 Dose: 20 mg Documented by: Propranolol HCl (Inderal La) 60 mg PO DAILY JT Stop: 07/24/19 08:59 Last Admin: 06/30/19 09:33 Dose: 60 mg Documented by: Ropinirole HCl (Requip) 0.25 mg PO QAM JT Stop: 07/24/19 08:59 Last Admin: 06/30/19 09:34 Dose: 0.25 mg Documented by: Ropinirole HCl (Requip) 0.5 mg PO HS JT Stop: 07/23/19 20:59 Last Admin: 06/29/19 20:47 Dose: 0.5 mg Documented by: Sodium Chloride ([place] Nasal) 1 - 2 sprays NA PRN PRN PRN Reason: Nasal Dryness/Congestion Stop: 07/23/19 18:29 Sucralfate (Carafate Tab) 1 gm PO ACHS JT Stop: 07/23/19 20:59 Last Admin: 06/30/19 09:33 Dose: 1 gm Documented by: Torsemide (Demadex) 20 mg PO DAILY JT Stop: 07/24/19 08:59 Last Admin: 06/30/19 09:33 Dose: 20 mg Documented by: Warfarin Sodium (Coumadin) 4 mg PO HS JT Stop: 07/23/19 20:59 Last Admin: 06/29/19 20:46 Dose: 4 mg Documented by: Mental Health & Subst Abuse Tx Psychiatrist Name of Psychiatrist: Charanjit Candelaria - Dr. Nelson Psychiatrist's Date of Appointment with Psychiatrist: 07/09/19 Time of Appointment with Psychiatrist: 3:10pm Psychiatric Appointment Comment: [address] [facility] Therapist Name of Therapist: Annette Cash, private practice in [place], [facility] next Saturday Therapist's Date of Therapist Appointment: 07/01/19 Therapy Appointment Comment: [address] [place] [address], [address] [place] [address] [employer] Name of [employer] In[employer]: BOZENA Grey Phone Number for [employer] Inbound [employer]: [phone] Post Discharge Appointments Primary Care Physician Name Of Family Doctor: Dr. Bird [place] Primary Care Provider Appointment Comment: [address] [place] [id number] Neurologist Name of Neurologist: Dr. Blankenship Neurologist's Date of Appointment with Neurologist: 07/08/19 Time of Appointment with Neurologist: 10:45 Neurology Appointment Comment: [address] [facility] FRANCISCO Charles Contact Information Discharge Discharge Address: . (1) Bipolar disorder Active/Remission status: currently active Current bipolar episode type: depressed Current episode severity: severe Psychotic features: without psychotic features Qualified Code(s): F31.4 - Bipolar disorder, current episode depressed, severe, without psychotic features
[2019-06-30] MEDS: ESCITALOPRAM OXALATE 20 MG TAB PO SCH (21:48)
[2019-06-30] MEDS: GABAPENTIN 100 MG CAP PO SCH (21:48)
[2019-06-30] MEDS: WARFARIN SOD 4 MG TAB PO SCH (21:48)
[2019-06-30] MEDS: PRAVASTATIN SOD 20 MG TAB PO SCH (21:50)
[2019-06-30] MEDS: INSULIN GLARGINE SOLOSTAR 100 UNITS/ML 3 ML PEN SQ SCH (21:50)
[2019-07-01 08:12] LABS: Glucose Fasting 87 mg/dl (70-99)
[2019-07-01 08:19] LABS: Chol HDL Ratio 4; Cholesterol 120 mg/dl (0-200); HDL Cholesterol 30 mg/dl; LDL Cholesterol Calculated 62 mg/dl; Triglycerides 140 mg/dl (0-150); VLDL Cholesterol 28 mg/dl
[2019-07-01] MEDS: SUCRALFATE 1 GM TAB PO SCH ×4 (09:03→21:06)
[2019-07-01] MEDS: FENOFIBRATE NANOCRYSTALLIZED 145 MG TABLET PO SCH (09:03)
[2019-07-01] MEDS: OLANZAPINE 2.5 MG TAB PO SCH ×2 (09:03→21:03)
[2019-07-01] MEDS: PANTOprazole 40 MG TAB PO SCH (09:05)
[2019-07-01] MEDS: AMLODIPINE BESYLATE 5 MG TAB PO SCH ×2 (09:05→21:05)
[2019-07-01] MEDS: BuPROPion SR 100 MG TABCR PO SCH ×2 (09:05→17:35)
[2019-07-01] MEDS: METOPROLOL SUCC 50MG EXT REL TAB PO SCH ×2 (09:05→21:05)
[2019-07-01] MEDS: CYANOCOBALAMIN 500 MCG TABLET (VITAMIN B-12) PO SCH (09:06)
[2019-07-01] MEDS: TORSEMIDE 10 MG TAB PO SCH (09:06)
[2019-07-01] MEDS: ROPINIROLE HCL 0.25 MG TABLET PO SCH ×2 (09:06→21:08)
[2019-07-01] MEDS: LOSARTAN POTASSIUM 50 MG TAB PO SCH (09:06)
[2019-07-01] MEDS: glipiZIDE ER 2.5 MG TABCR PO SCH (09:06)
[2019-07-01] MEDS: lamoTRIgine 100 MG TAB PO SCH ×2 (09:07→21:07)
[2019-07-01] MEDS: PROPRANOLOL HCL 60 MG LA CAP PO SCH (09:07)
--- NOTE | 2019-07-01 11:21 | Psychiatric Progress Note ---
Date of Service July 01, 2019 Impression / Recommendations (1) Bipolar disorder: 06/24 - Continue escitalopram 20 mg, lamotrigine 250 mg at bedtime, and bupropion SR 100 mg twice daily. She was recently switched from citalopram to escitalopram after discussion with her PCP, due to cardiac risk. -Have considered alternative mood stabilizers/medications to target bipolar depression including lithium and atypical antipsychotics, but concerns include multiple unstable medical comorbidities, difficulties with medication adherence, and cognitive impairment. She had worsening tremor on lithium, and side effects with aripiprazole and quetiapine. She has not had a trial of lurasidone, which would be reasonable to consider. I do think there is an Gorham II component to her mood symptoms as well, I would like to try addressing current decompensation through nonpharmacologic methods prior to changing medications due to aforementioned concerns. -Care coordinated with her outpatient therapist, Annette Rousseau -next appointment is 07/01/2019 at 10 AM. Recommend referral for a blended case management, to increase supports in her area, and explore options for transportation. 06/25 -Long-standing bipolar diagnosis. No med changes admission and will continue to monitor for another 24 hours before we consider additional pharmacotherapy. Patient unfortunately is a fairly poor historian guarding prior psychiatric treatment. I agree with Dr. Nelson that he does appear likely a long-standing cluster B personality component to her mood instability and feelings of abandonment likely recently exacerbated related to her 's new relationship 06/26 -Due to the severity of her emotional distress, will trial olanzapine 1.25 mg twice daily taken mid day and bedtime for additional mood stabilization/augmentation and off label anxiolysis. This agent was chosen for lower risk for EPS, calming effect profile, and likely quick onset of action. Unfavorably it as a relatively high risk of metabolic side effects and patient does have a history of diabetes and dyslipidemia which was discussed in detail with the patient and she was accepting of this risk. If she does gain weight on the olanzapine this potentially could be a temporary intervention to help her during this transitional time. 06/27 -Increase olanzapine to 2.5 mg p.o. twice daily -will further review treatment history and consider alternative antidepressant options (known prior antidepressant tx: celexa, lexapro, remeron, wellbutrin. depakote, lithium, abilify worsened tremor. seroquel not effective. on lamictal now.) - important to note that mood lability and suicidality dates back to teens 06/28 -Appearing a little more composed on increased olanzapine so far which appears well-tolerated -We will attempt to maximize therapeutic benefit from lamotrigine increasing to 100 mg in the morning and 200 mg at night. Common risks and benefits of that medication were reviewed. Can consider checking a level prior to discharge to see if there is room for further titration. She reports a history of good tolerability of this medication. -As patient's outpatient psychiatrist will be returning tomorrow, I will defer alternative antidepressant choice to her judgment. 06/29 - Having a difficult day today, as patient is attempting to make a decision about her housing options for discharge - Reporting strong feelings of hopelessness, "I don't want to live in this place of feeling anymore" - She is reportedly tolerating medication adjustments and will continue at this time - Continue to assist patient is discharge and safety planning - Family meeting with [id number] and granddaughter was held yesterday 06/30 - Reporting improved mood today, tolerating medication adjustments - Fasting glucose and lipid panel ordered for tomorrow morning to allow for monitoring of metabolic symptoms related to olanzapine initiation - Continue to encourage conversation regarding housing options, patient recognizing it is not ideal for her to be regularly in contact with her ex- 07/01 - Continues to report hopelessness; difficulty moving forward with regard to discharge planning - Fasting glucose and lipid panel reviewed with the patient; all values WNL - Continue to engage patient and family in discharge planning decisions; there is concern from staff regarding patient returning to live with estranged (2) Generalized anxiety disorder: 06/24 -continue SSRI and hydroxyzine 25 mg 3 times daily as needed anxiety. Work on healthy coping skills and ways to manage anxiety. She has benefited from doing daily devotion/journaling before. 07/01 - Continue to work with patient on development of healthy and effective coping strategies - patient stating "I just cannot cope", and may need additional direction regarding use of coping skills (3) Cognitive disorder: 06/24 -has seen a neurologist, Dr. Mayen, in [place]. Had a brain MRI which showed microvascular change, EEG showed evidence of encephalopathy. Cognitive function clearly worsens when she is decompensated psychiatrically, and she was previously on benzodiazepines which have since been tapered off. Her initial MOCA in 11/2018 was 17/30, and in 12/2018 was 23/30. Centrally acting medications had been reduced and anxiety was improved at that time. -Will recheck MOCA here once anxiety is under better control. -Patient agrees not to drive until she has stabilized both medically and psychiatrically. 06/25 -Patient reports she is being followed by neurology in [place]. Presently I am uncertain of most recent neuroimaging results however it appears she has known history of microvascular changes. She certainly has risk factors for cerebrovascular disease. Lower extremity movements have a choreiform character. Consider possibility of late onset Dianne's chorea particularly as family history is unknown related to symptom cluster of chorea, personality change, mood lability, executive dysfunction, mild cognitive impairment. Would be helpful to review if evidence of caudate atrophy on imaging. - requip dose is low however, in combination w/ long standing wellbutrin, consider possibility of contribution to problematic activation 06/26 -Briefly discussed need for continued neurological follow-up and consideration for neuropsych testing which would need to be done as an outpatien t however we can likely make that referral prior to her discharge 07/01 - Will plan to recheck MoCA during admission, but continues to be rather anxious and tearful - increasing likelihood results may not be entirely accurate (4) Accentuation of personality traits: Borderline and dependent traits. Work on healthy coping skills (5) Hypercholesterolemia: Continue home dose of TriCor 06/30 - Fasting lipid panel tomorrow morning, as above 07/01 - Fasting lipid panel results reviewed with patient - values WNL (6) Diabetes mellitus: 06/24 - Diabetic diet, continue insulin, consult diabetic pharmacist and educator at patient's request 06/26 - sugars stable 06/30 - Fasting glucose tomorrow morning, as above 07/01 - Fasting glucose reviewed with patient; value WNL (7) Restless leg syndrome: Continue Requip and gabapentin at bedtime (8) Vitamin D deficiency: Continue supplementation (9) Coronary artery disease: Continue metoprolol XL, Norvasc, propanolol, and Cozaar (10) Warfarin anticoagulation: Continue home dose of Coumadin, and check INR daily. 2.3 on admission, 2.0 today. 06/25 - INR 2.2 06/26 - INR 2.1 06/27 - INR 2.1 06/28 - INR 2.6 06/30 - INR 3.5 - Per anticoagulation protocol, Coumadin should be held when INR is above 3.5 Risk Factors Assessment Male: No : Yes Do You Have Access To A Gun?: No Health Problems: Yes Mental Health Diagnoses: Yes Substance Use Disorders: No Previous Attempt: Yes Family History of Suicide: No Previous Psychiatric Hospitalization: Yes Hopelessness: Yes Smoker: No Protective Factors Assessment Yarsanism Beliefs: Yes : Yes (But and has a new girlfriend) Responsible for Young Children: No Employed: No Stable Relationships: No Supportive Family: Yes Good Rapport with Provider: Yes Interval History Identifying Information MORENA HERNANDEZ is a 73-year-old F who currently lives alone in [place], has a history of bipolar disorder type I, generalized anxiety disorder, cognitive disorder NOS, and dependent and borderline personality traits as well as multiple medical problems including hypertension, hypercholesterolemia, type 2 diabetes, obesity, and stroke who was admitted on 06/23/19 18:30 on a 201 voluntary commitment for worsening mood and suicidal thoughts. Chief Complaint "I'm shaking insight and out." Review of Systems Notes Constitutional: reporting "shakiness", some unsteadiness during exercise group - prior to interaction Cardiovascular: denied Respiratory: denied Gastrointestinal: denied Neurological: denied Psychiatric: denies symptoms other than stated above Total of at least 10 systems reviewed, pertinent positives as above and in HPI. Sleep Information Total Hours of Sleep: 6.5 Sleep Comments: pt on q-15 minute checks Meal Information Percent Meal Consumed - Breakfast: 100 Percent Meal Consumed - Lunch: 100 Percent Meal Consumed - Dinner: 100 Nutrition Comment: per meal log Subjective Subjective Patient was seen & assessed and interval progress reviewed with treatment team. Staff reports the patient signed a release for her estranged , in order to coordinate housing options at discharge. Despite staff concerns, family is presently reporting feeling comfortable with patient living with her estranged , stating they will provide assistance regularly. Recommendation for a case maker and eventual referral to a psychiatric day program was reviewed during treatment team. Patient was seen today to assess progress since admission. She tells this provider that she is "feeling shaky inside and out." She admits to some physical concerns this morning, stating that she has been a little more unsteady on her feet today. On top of these physical concerns, patient states that she is struggling today with her discharge options. Patient admits to concern about returning home to live with her estranged , as "I feel as though he has not received me well." Patient verbalizes that she does not believe her daughters are concerned about this discharge plan, but she has been hesitant to express her reservations. Patient reports to this provider that she is feeling "sad", as "I wish I knew things for sure, I just worry about going back and not knowing what will happen." Patient states that she is worried she will "lose my freedom" with having this level of family intervention. This provider discussed recommendation for case management, as well as options for day programs that would keep patient on a routine and allow her scheduled time outside of the house. Patient has difficulty with his conversation, as she admits she has "difficulty seeing how anything could change for the better." Patient states that she realizes she does not handle situations well, but states "I just cannot use my coping skills." Patient was reminded that this is the perfect setting for him to practice her coping skills and gain additional assistance from knowledgeable staff. She continues to be rather tearful, frequently stating wishes to "just go far, far away from all this." Suicidality remains passive and without intent; however, she remains very hopeless and unable to participate productively with discharge and safety planning. Patient is unable to contract for safety outside of the hospital setting. She denies other specific needs or concerns today. Physical Exam Psychiatric Orientation: alert, oriented x 3 and cooperative Apperance: appropriately dressed (casually, in sweater and jeans), appropriately groomed and appeared stated age Eye Contact: + fair eye contact (staring at floor during times of tearfulness; moments of direct eye contact) Motor Behavior: steady gait and station (overall, cautious ambulation with assistance for preventative reasons) and no abnormal motor movements Speech: normal rate/rhythm/volume of speech Affect: + depressed affect, + tearful affect and mood congruent with affect Mood: + depressed mood ("I'm just feeling sad" and "I just want to go far, far away from all this") Thought Process: clear/coherent thought process, + perseveration and + concrete thought process Thought Content: + preoccupation (with concerns about family, her freedom, and hopelessness), + cognitive distortions (likely consistent with various personality traits), + hopelessness, + worthlessness, + loneliness and + guilt Suicidal Thoughts: + reports suicidal thoughts (ongoing passive SI, but unable to contract for safety) Homicidal Thoughts: denies homicidal thoughts Hallucinations: no auditory hallucinations and no visual hallucinations Cognition: attention grossly intact and language grossly intact Insight: + limited insight Judgement: + limited judgement Vital Signs (Past 24 Hours) Last Vital Signs Temp 36.6 C 07/01/19 07:01 Pulse 66 07/01/19 07:02 Resp 18 07/01/19 07:01 BP 138/80 07/01/19 07:02 Pulse Ox 97 06/29/19 15:39 Results & Data Laboratory Results Laboratory Results - last 24 hr 06/30/19 06/30/19 06/30/19 12:42 17:10 20:53 POC Glucose 86 249 H 215 H Fasting Glucose Triglycerides Cholesterol LDL Cholesterol, Calc VLDL Cholesterol, Calc HDL Cholesterol Cholesterol/HDL Ratio 07/01/19 07:33 POC Glucose Fasting Glucose 87 Triglycerides 140 Cholesterol 120 LDL Cholesterol, Calc 62 VLDL Cholesterol, Calc 28 HDL Cholesterol 30 Cholesterol/HDL Ratio 4 Current Inpatient Medications Current Inpatient Medications: Current Inpatient Medications Al Hydrox/Mg Hydrox/Simethicone (Maalox) 30 ml PO Q4H PRN PRN Reason: GI Upset Stop: 07/23/19 18:29 Last Admin: 06/29/19 15:34 Dose: 30 ml Documented by: Amlodipine Besylate (Norvasc) 5 mg PO BID [facility] Stop: 07/23/19 20:59 Last Admin: 07/01/19 09:05 Dose: 5 mg Documented by: Bupropion HCl (Wellbutrin-Sr) 100 mg PO BIDM [facility] Stop: 07/24/19 07:59 Last Admin: 07/01/19 09:05 Dose: 100 mg Documented by: Cyanocobalamin (Vitamin B-12) 1,000 mcg PO DAILY [facility] Stop: 07/24/19 08:59 Last Admin: 07/01/19 09:06 Dose: 1,000 mcg Documented by: Dextrose (Dextrose 50%) 25 - 50 ml IV UD PRN; Protocol PRN Reason: Hypoglycemia Protocol Stop: 07/23/19 19:44 Ergocalciferol (Vitamin D2) 50,000 units PO Mo@0900 [facility] Stop: 07/29/19 08:59 Last Admin: 06/29/19 09:41 Dose: 50,000 units Documented by: Escitalopram Oxalate (Lexapro Tab) 20 mg PO HS [facility] Stop: 07/23/19 20:59 Last Admin: 06/30/19 21:48 Dose: 20 mg Documented by: Fenofibrate (Tricor) 145 mg PO DAILY JT Stop: 07/23/19 19:59 Last Admin: 07/01/19 09:03 Dose: 145 mg Documented by: Gabapentin (Neurontin) 200 mg PO HS [facility] Stop: 07/23/19 20:59 Last Admin: 06/30/19 21:48 Dose: 200 mg Documented by: Glipizide (Glucotrol Extended Rel) 5 mg PO QDB [facility] Stop: 07/24/19 08:59 Last Admin: 07/01/19 09:06 Dose: 5 mg Documented by: Glucagon (Glucagen) 1 mg IM UD PRN; Protocol PRN Reason: Hypoglycemia Protocol Stop: 07/23/19 19:44 Glucose (Glucose 40%) 15 - 30 gm PO UD PRN; Protocol PRN Reason: Hypoglycemia Protocol Stop: 07/23/19 19:44 Glucose (Dex4 Glucose) 4 - 8 tabs PO UD PRN; Protocol PRN Reason: Hypoglycemia Protocol Stop: 07/23/19 19:44 Hydroxyzine HCl (Vistaril) 50 mg PO HSZ PRN PRN Reason: Insomnia Stop: 07/23/19 18:29 Last Admin: 06/30/19 22:30 Dose: 50 mg Documented by: Hydroxyzine HCl (Vistaril) 25 mg PO Q4H PRN PRN Reason: Anxiety Stop: 07/23/19 21:28 Last Admin: 06/29/19 14:04 Dose: 25 mg Documented by: Insulin Glargine (Lantus Solostar Pen) 12 units SQ QPM JT Stop: 07/23/19 20:59 Last Admin: 06/30/19 21:50 Dose: 12 units Documented by: Lamotrigine (Lamictal) 200 mg PO HS [facility] Stop: 07/28/19 21:59 Last Admin: 06/30/19 21:48 Dose: 200 mg Documented by: Lamotrigine (Lamictal) 100 mg PO QAM [facility] Stop: 07/28/19 09:44 Last Admin: 07/01/19 09:07 Dose: 100 mg Documented by: Losartan Potassium (Cozaar) 100 mg PO QAM [facility] Stop: 07/24/19 08:59 Last Admin: 07/01/19 09:06 Dose: 100 mg Documented by: Magnesium Hydroxide (Milk Of Magnesia) 30 ml PO DAILY PRN PRN Reason: Constipation Stop: 07/23/19 18:29 Metoprolol Succinate (Toprol Xl) 100 mg PO BID [facility] Stop: 07/23/19 20:59 Last Admin: 07/01/19 09:05 Dose: 100 mg Documented by: Miscellaneous (Carbohydrates For Hypoglycemia) 15 - 30 gm PO UD PRN PRN Reason: Hypoglycemia Treatment Stop: 07/23/19 19:44 Nitroglycerin (Nitrostat) 0.4 mg SL Q5M PRN PRN Reason: chest pain Stop: 07/23/19 18:33 Olanzapine (Zyprexa) 2.5 mg PO BID [facility] Stop: 07/27/19 20:59 Last Admin: 07/01/19 09:03 Dose: 2.5 mg Documented by: Pantoprazole Sodium (Protonix) 40 mg PO DAILY [facility] Stop: 07/24/19 08:59 Last Admin: 07/01/19 09:05 Dose: 40 mg Documented by: Pravastatin Sodium (Pravachol) 20 mg PO QPM [facility] Stop: 07/23/19 20:59 Last Admin: 06/30/19 21:50 Dose: 20 mg Documented by: Propranolol HCl (Inderal La) 60 mg PO DAILY [facility] Stop: 07/24/19 08:59 Last Admin: 07/01/19 09:07 Dose: 60 mg Documented by: Ropinirole HCl (Requip) 0.25 mg PO QAM [facility] Stop: 07/24/19 08:59 Last Admin: 07/01/19 09:06 Dose: 0.25 mg Documented by: Ropinirole HCl (Requip) 0.5 mg PO HS [facility] Stop: 07/23/19 20:59 Last Admin: 06/30/19 21:48 Dose: 0.5 mg Documented by: Sodium Chloride ([place] Nasal) 1 - 2 sprays NA PRN PRN PRN Reason: Nasal Dryness/Congestion Stop: 07/23/19 18:29 Sucralfate (Carafate Tab) 1 gm PO ACHS [facility] Stop: 07/23/19 20:59 Last Admin: 07/01/19 09:03 Dose: 1 gm Documented by: Torsemide (Demadex) 20 mg PO DAILY JT Stop: 07/24/19 08:59 Last Admin: 07/01/19 09:06 Dose: 20 mg Documented by: Warfarin Sodium (Coumadin) 4 mg PO HS JT Stop: 07/23/19 20:59 Last Admin: 06/30/19 21:48 Dose: 4 mg Documented by: Mental Health & Subst Abuse Tx Psychiatrist Name of Psychiatrist: [facility] - Dr. Nelson Psychiatrist's Date of Appointment with Psychiatrist: 07/09/19 Time of Appointment with Psychiatrist: 3:10pm Psychiatric Appointment Comment: [address] [facility], [facility] [address] Therapist Name of Therapist: Annette Cash, private [facility] in [place] Therapist's Date of Therapist Appointment: 07/01/19 Therapy Appointment Comment: [address] [facility], [facility] [address] [address] Ferry Engineer Name of Ferry Engineer: BOZENA Grey Phone Number for Ferry Engineer: [phone] Post Discharge Appointments Primary Care Physician Name Of Family Doctor: Dr. Bird Amalia Primary Care Provider Appointment Comment: [address] [place] [address] Neurologist Name of Neurologist: Dr. Blankenship Neurologist's Date of Appointment with Neurologist: 07/08/19 Time of Appointment with Neurologist: 10:45 Neurology Appointment Comment: [address] [place], [place] Contact Information Discharge Discharge Address: . (1) Bipolar disorder Active/Remission status: currently active Current bipolar episode type: depressed Current episode severity: severe Psychotic features: without psychotic features Qualified Code(s): F31.4 - Bipolar disorder, current episode depressed, severe, without psychotic features
[2019-07-01] MEDS: WARFARIN SOD 4 MG TAB PO SCH (21:06)
[2019-07-01] MEDS: PRAVASTATIN SOD 20 MG TAB PO SCH (21:06)
[2019-07-01] MEDS: ESCITALOPRAM OXALATE 20 MG TAB PO SCH (21:07)
[2019-07-01] MEDS: GABAPENTIN 100 MG CAP PO SCH (21:08)
[2019-07-01] MEDS: INSULIN GLARGINE SOLOSTAR 100 UNITS/ML 3 ML PEN SQ SCH (21:10)
[2019-07-02 08:17] LABS: Prothrombin Time 35.1 Seconds (9.0-12.0)
[2019-07-02 08:43] LABS: INR 3.8 (0.9-1.1)
[2019-07-02] MEDS: LOSARTAN POTASSIUM 50 MG TAB PO SCH (09:39)
[2019-07-02] MEDS: SUCRALFATE 1 GM TAB PO SCH ×4 (09:39→21:05)
[2019-07-02] MEDS: AMLODIPINE BESYLATE 5 MG TAB PO SCH ×2 (09:40→21:04)
[2019-07-02] MEDS: PANTOprazole 40 MG TAB PO SCH (09:40)
[2019-07-02] MEDS: glipiZIDE ER 2.5 MG TABCR PO SCH (09:40)
[2019-07-02] MEDS: PROPRANOLOL HCL 60 MG LA CAP PO SCH (09:40)
[2019-07-02] MEDS: lamoTRIgine 100 MG TAB PO SCH ×2 (09:40→21:06)
[2019-07-02] MEDS: TORSEMIDE 10 MG TAB PO SCH (09:40)
[2019-07-02] MEDS: CYANOCOBALAMIN 500 MCG TABLET (VITAMIN B-12) PO SCH (09:41)
[2019-07-02] MEDS: ROPINIROLE HCL 0.25 MG TABLET PO SCH ×2 (09:41→21:06)
[2019-07-02] MEDS: METOPROLOL SUCC 50MG EXT REL TAB PO SCH ×2 (09:41→21:04)
[2019-07-02] MEDS: FENOFIBRATE NANOCRYSTALLIZED 145 MG TABLET PO SCH (09:41)
[2019-07-02] MEDS: BuPROPion SR 100 MG TABCR PO SCH ×2 (09:42→17:25)
[2019-07-02] MEDS: OLANZAPINE 2.5 MG TAB PO SCH ×2 (09:42→21:04)
--- NOTE | 2019-07-02 10:46 | Psychiatric Progress Note ---
Date of Service July 02, 2019 Impression / Recommendations (1) Bipolar disorder: 06/24 - Continue escitalopram 20 mg, lamotrigine 250 mg at bedtime, and bupropion SR 100 mg twice daily. She was recently switched from citalopram to escitalopram after discussion with her PCP, due to cardiac risk. -Have considered alternative mood stabilizers/medications to target bipolar depression including lithium and atypical antipsychotics, but concerns include multiple unstable medical comorbidities, difficulties with medication adherence, and cognitive impairment. She had worsening tremor on lithium, and side effects with aripiprazole and quetiapine. She has not had a trial of lurasidone, which would be reasonable to consider. I do think there is an [place] II component to her mood symptoms as well, I would like to try addressing current decompensation through nonpharmacologic methods prior to changing medications due to aforementioned concerns. -Care coordinated with her outpatient therapist, Annette Rousseau -next appointment is 07/01/2019 at 10 AM. Recommend referral for a blended case management, to increase supports in her area, and explore options for transportation. 06/25 -Long-standing bipolar diagnosis. No med changes admission and will continue to monitor for another 24 hours before we consider additional pharmacotherapy. Patient unfortunately is a fairly poor historian guarding prior psychiatric treatment. I agree with Dr. Nelson that he does appear likely a long-standing cluster B personality component to her mood instability and feelings of abandonment likely recently exacerbated related to her 's new relationship 06/26 -Due to the severity of her emotional distress, will trial olanzapine 1.25 mg twice daily taken mid day and bedtime for additional mood stabilization/augmentation and off label anxiolysis. This agent was chosen for lower risk for EPS, calming effect profile, and likely quick onset of action. Unfavorably it as a relatively high risk of metabolic side effects and patient does have a history of diabetes and dyslipidemia which was discussed in detail with the patient and she was accepting of this risk. If she does gain weight on the olanzapine this potentially could be a temporary intervention to help her during this transitional time. 06/27 -Increase olanzapine to 2.5 mg p.o. twice daily -will further review treatment history and consider alternative antidepressant options (known prior antidepressant tx: celexa, lexapro, remeron, wellbutrin. depakote, lithium, abilify worsened tremor. seroquel not effective. on lamictal now.) - important to note that mood lability and suicidality dates back to teens 06/28 -Appearing a little more composed on increased olanzapine so far which appears well-tolerated -We will attempt to maximize therapeutic benefit from lamotrigine increasing to 100 mg in the morning and 200 mg at night. Common risks and benefits of that medication were reviewed. Can consider checking a level prior to discharge to see if there is room for further titration. She reports a history of good tolerability of this medication. -As patient's outpatient psychiatrist will be returning tomorrow, I will defer alternative antidepressant choice to her judgment. 06/29 - Having a difficult day today, as patient is attempting to make a decision about her housing options for discharge - Reporting strong feelings of hopelessness, "I don't want to live in this place of feeling anymore" - She is reportedly tolerating medication adjustments and will continue at this time - Continue to assist patient is discharge and safety planning - Family meeting with [id number] and granddaughter was held yesterday 06/30 - Reporting improved mood today, tolerating medication adjustments - Fasting glucose and lipid panel ordered for tomorrow morning to allow for monitoring of metabolic symptoms related to olanzapine initiation - Continue to encourage conversation regarding housing options, patient recognizing it is not ideal for her to be regularly in contact with her ex- 07/01 - Continues to report hopelessness; difficulty moving forward with regard to discharge planning - Fasting glucose and lipid panel reviewed with the patient; all values WNL - Continue to engage patient and family in discharge planning decisions; there is concern from staff regarding patient returning to live with estranged 07/02 - Continue current medication regimen, seemingly having a better morning - Continue to encourage engagement in group programming, focused on taking proactive steps to improve situation (2) Generalized anxiety disorder: 06/24 -continue SSRI and hydroxyzine 25 mg 3 times daily as needed anxiety. Work on healthy coping skills and ways to manage anxiety. She has benefited from doing daily devotion/journaling before. 07/01 - Continue to work with patient on development of healthy and effective coping strategies - patient stating "I just cannot cope", and may need additional direction regarding use of coping skills (3) Cognitive disorder: 06/24 -has seen a neurologist, Dr. Mayen, in [place]. Had a brain MRI which showed microvascular change, EEG showed evidence of encephalopathy. Cognitive function clearly worsens when she is decompensated psychiatrically, and she was previously on benzodiazepines which have since been tapered off. Her initial MOCA in 11/2018 was 17/30, and in 12/2018 was 23/30. Centrally acting medications had been reduced and anxiety was improved at that time. -Will recheck MOCA here once anxiety is under better control. -Patient agrees not to drive until she has stabilized both medically and psychiatrically. 06/25 -Patient reports she is being followed by neurology in [place]. Presently I am uncertain of most recent neuroimaging results however it appears she has known history of microvascular changes. She certainly has risk factors for cerebrovascular disease. Lower extremity movements have a choreiform character. Consider possibility of late onset [place]'s chorea particularly as family history is unknown related to symptom cluster of chorea, personality change, mood lability, executive dysfunction, mild cognitive impairment. Would be helpful to review if evidence of caudate atrophy on imaging. - requip dose is low however, in combination w/ long standing wellbutrin, consider possibility of contribution to problematic activation 06/26 -Briefly discussed need for continued neurological follow-up and consideration for neuropsych testing which would need to be done as an outpatient however we can likely make that referral prior to her discharge 07/01 - Will plan to recheck MoCA during admission, but continues to be rather anxious and tearful - increasing likelihood results may not be entirely accurate (4) Accentuation of personality traits: Borderline and dependent traits. Work on healthy coping skills (5) Hypercholesterolemia: Continue home dose of TriCor 06/30 - Fasting lipid panel tomorrow morning, as above 07/01 - Fasting lipid panel results reviewed with patient - values WNL (6) Diabetes mellitus: 06/24 - Diabetic diet, continue insulin, consult diabetic pharmacist and educator at patient's request 06/26 - sugars stable 06/30 - Fasting glucose tomorrow morning, as above 07/01 - Fasting glucose reviewed with patient; value WNL (7) Restless leg syndrome: Continue Requip and gabapentin at bedtime (8) Vitamin D deficiency: Continue supplementation (9) Coronary artery disease: Continue metoprolol XL, Norvasc, propanolol, and Cozaar (10) Warfarin anticoagulation: Continue home dose of Coumadin, and check INR daily. 2.3 on admission, 2.0 today. 06/25 - INR 2.2 06/26 - INR 2.1 06/27 - INR 2.1 06/28 - INR 2.6 06/30 - INR 3.5 - Per anticoagulation protocol, Coumadin should be held when INR is above 3.5 07/02 - INR drawn today - 3.8 - Coumadin to be held per anticoagulation protocol Risk Factors Assessment Male: No : Yes Do You Have Access To A Gun?: No Health Problems: Yes Mental Health Diagnoses: Yes Substance Use Disorders: No Previous Attempt: Yes Family History of Suicide: No Previous Psychiatric Hospitalization: Yes Hopelessness: Yes Smoker: No Protective Factors Assessment Restorationist Beliefs: Yes : Yes (But and has a new girlfriend) Responsible for Young Children: No Employed: No Stable Relationships: No Supportive Family: Yes Good Rapport with Provider: Yes Interval History Identifying Information MORENA HERNANDEZ is a 73-year-old F who currently lives alone in [place], has a history of bipolar disorder type I, generalized anxiety disorder, cognitive disorder NOS, and dependent and borderline personality traits as well as multiple medical problems including hypertension, hypercholesterolemia, type 2 diabetes, obesity, and stroke who was admitted on 06/23/19 18:30 on a 201 voluntary commitment for worsening mood and suicidal thoughts. Chief Complaint " I do not know if it was the day that was difficult, or if it is my need for acceptance and adjustment to the difficulty in myself." Review of Systems Notes Constitutional: denied Cardiovascular: denied Respiratory: denied Gastrointestinal: denied Neurological: denied Psychiatric: denies symptoms other than stated above Total of at least 10 systems reviewed, pertinent positives as above and in HPI. Sleep Information Total Hours of Sleep: 7 Sleep Comments: pt on q-15 minute checks Meal Information Percent Meal Consumed - Breakfast: 100 Percent Meal Consumed - Lunch: 100 Percent Meal Consumed - Dinner: 100 Nutrition Comment: per meal log Subjective Subjective Patient was seen & assessed and interval progress reviewed with nursing and social work. Staff reports the patient continues to be depressed and tearful on the unit. She is attending group programming, but demonstrating little involvement in proactive discharge planning. Patient was seen today to assess progress since admission. She admits that yesterday was rather difficult for her. She follows up this report with "I do not know if the day itself was actually difficult, or if it is my need for acceptance and adjustment to the difficulty in myself." Patient was asked to provide follow-up comments on the statement, and responded by saying "sometimes I just feel like I am holding myself back." Patient was requested to provide examples of thoughts and behaviors that she feels are counterproductive. She states, "how can I say this? I am a procrastinator. I do not like confrontation. I will let things go for a long time without saying anything, until I just cannot anymore." We reviewed ways in which the patient can be more proactive about managing her anxiety and depressive symptoms, as well as taking a more proactive role in development of a positive discharge plan. Patient continues to report reservations about returning home to live with her estranged ; however, states she has not clearly verbalize this to her family, and is not sure of other options. Patient does believe that her symptoms are somewhat improved today, stating "I am still emotional, but probably better than I was." She admits to continued hopelessness and passive suicidality, stating "I wish I was not here." Patient does report perceived forgetfulness, stating "I start sentences, and I get off track. I do not remember what I was planning to say." Patient denies other specific needs or concerns today. Physical Exam Psychiatric Orientation: alert, oriented x 3 and cooperative Apperance: appropriately dressed (Casually, wearing T-shirt and leggings; however, covered with stains) and + disheveled Eye Contact: + fair eye contact Motor Behavior: steady gait and station (Cautious ambulation) and + tremor (Seemingly improved during time of conversation) Speech: normal rate/rhythm/volume of speech Affect: + depressed affect, + tearful affect and mood congruent with affect Mood: + depressed mood ("Still emotional, but probably a little better than I was") Thought Process: + concrete thought process and thought association intact Thought Content: + cognitive distortions (Consistent with underlying personality traits) and + hopelessness Suicidal Thoughts: + reports suicidal thoughts (Continued passive SI and hopelessness) Patient continues to verbalize "I still wish I wasn't here." Homicidal Thoughts: denies homicidal thoughts Hallucinations: no auditory hallucinations and no visual hallucinations Cognition: attention grossly intact and language grossly intact Insight: + limited insight Judgement: + fair judgement Vital Signs (Past 24 Hours) Last Vital Signs Temp 36.6 C 07/02/19 07:17 Pulse 66 07/02/19 07:17 Resp 18 07/02/19 07:17 BP 137/69 07/02/19 07:17 Pulse Ox 97 06/29/19 15:39 Results & Data Laboratory Results Laboratory Results - last 24 hr 07/01/19 07/01/19 07/02/19 17:05 20:27 07:44 PT 35.1 H INR 3.8 H POC Glucose 125 H 237 H 07/02/19 08:16 PT INR POC Glucose 130 H Current Inpatient Medications Current Inpatient Medications: Current Inpatient Medications Al Hydrox/Mg Hydrox/Simethicone (Maalox) 30 ml PO Q4H PRN PRN Reason: GI Upset Stop: 07/23/19 18:29 Last Admin: 06/29/19 15:34 Dose: 30 ml Documented by: Amlodipine Besylate (Norvasc) 5 mg PO BID [facility] Stop: 07/23/19 20:59 Last Admin: 07/02/19 09:40 Dose: 5 mg Documented by: Bupropion HCl (Wellbutrin-Sr) 100 mg PO BIDM [facility] Stop: 07/24/19 07:59 Last Admin: 07/02/19 09:42 Dose: 100 mg Documented by: Cyanocobalamin (Vitamin B-12) 1,000 mcg PO DAILY [facility] Stop: 07/24/19 08:59 Last Admin: 07/02/19 09:41 Dose: 1,000 mcg Documented by: Dextrose (Dextrose 50%) 25 - 50 ml IV UD PRN; Protocol PRN Reason: Hypoglycemia Protocol Stop: 07/23/19 19:44 Ergocalciferol (Vitamin D2) 50,000 units PO Mo@0900 [facility] Stop: 07/29/19 08:59 Last Admin: 06/29/19 09:41 Dose: 50,000 units Documented by: Escitalopram Oxalate (Lexapro Tab) 20 mg PO HS [facility] Stop: 07/23/19 20:59 Last Admin: 07/01/19 21:07 Dose: 20 mg Documented by: Fenofibrate (Tricor) 145 mg PO DAILY JT Stop: 07/23/19 19:59 Last Admin: 07/02/19 09:41 Dose: 145 mg Documented by: Gabapentin (Neurontin) 200 mg PO HS [facility] Stop: 07/23/19 20:59 Last Admin: 07/01/19 21:08 Dose: 200 mg Documented by: Glipizide (Glucotrol Extended Rel) 5 mg PO QDB [facility] Stop: 07/24/19 08:59 Last Admin: 07/02/19 09:40 Dose: 5 mg Documented by: Glucagon (Glucagen) 1 mg IM UD PRN; Protocol PRN Reason: Hypoglycemia Protocol Stop: 07/23/19 19:44 Glucose (Glucose 40%) 15 - 30 gm PO UD PRN; Protocol PRN Reason: Hypoglycemia Protocol Stop: 07/23/19 19:44 Glucose (Dex4 Glucose) 4 - 8 tabs PO UD PRN; Protocol PRN Reason: Hypoglycemia Protocol Stop: 07/23/19 19:44 Hydroxyzine HCl (Vistaril) 50 mg PO HSZ PRN PRN Reason: Insomnia Stop: 07/23/19 18:29 Last Admin: 07/01/19 21:09 Dose: 50 mg Documented by: Hydroxyzine HCl (Vistaril) 25 mg PO Q4H PRN PRN Reason: Anxiety Stop: 07/23/19 21:28 Last Admin: 06/29/19 14:04 Dose: 25 mg Documented by: Insulin Glargine (Lantus Solostar Pen) 12 units SQ QPM [facility] Stop: 07/23/19 20:59 Last Admin: 07/01/19 21:10 Dose: 12 units Documented by: Lamotrigine (Lamictal) 200 mg PO HS [facility] Stop: 07/28/19 21:59 Last Admin: 07/01/19 21:07 Dose: 200 mg Documented by: Lamotrigine (Lamictal) 100 mg PO QAM [facility] Stop: 07/28/19 09:44 Last Admin: 07/02/19 09:40 Dose: 100 mg Documented by: Losartan Potassium (Cozaar) 100 mg PO QAM [facility] Stop: 07/24/19 08:59 Last Admin: 07/02/19 09:39 Dose: 100 mg Documented by: Magnesium Hydroxide (Milk Of Magnesia) 30 ml PO DAILY PRN PRN Reason: Constipation Stop: 07/23/19 18:29 Metoprolol Succinate (Toprol Xl) 100 mg PO BID [facility] Stop: 07/23/19 20:59 Last Admin: 07/02/19 09:41 Dose: 100 mg Documented by: Miscellaneous (Carbohydrates For Hypoglycemia) 15 - 30 gm PO UD PRN PRN Reason: Hypoglycemia Treatment Stop: 07/23/19 19:44 Nitroglycerin (Nitrostat) 0.4 mg SL Q5M PRN PRN Reason: chest pain Stop: 07/23/19 18:33 Olanzapine (Zyprexa) 2.5 mg PO BID JT Stop: 07/27/19 20:59 Last Admin: 07/02/19 09:42 Dose: 2.5 mg Documented by: Pantoprazole Sodium (Protonix) 40 mg PO DAILY JT Stop: 07/24/19 08:59 Last Admin: 07/02/19 09:40 Dose: 40 mg Documented by: Pravastatin Sodium (Pravachol) 20 mg PO QPM JT Stop: 07/23/19 20:59 Last Admin: 07/01/19 21:06 Dose: 20 mg Documented by: Propranolol HCl (Inderal La) 60 mg PO DAILY JT Stop: 07/24/19 08:59 Last Admin: 07/02/19 09:40 Dose: 60 mg Documented by: Ropinirole HCl (Requip) 0.25 mg PO QAM JT Stop: 07/24/19 08:59 Last Admin: 07/02/19 09:41 Dose: 0.25 mg Documented by: Ropinirole HCl (Requip) 0.5 mg PO HS JT Stop: 07/23/19 20:59 Last Admin: 07/01/19 21:08 Dose: 0.5 mg Documented by: Sodium Chloride ([place] Nasal) 1 - 2 sprays NA PRN PRN PRN Reason: Nasal Dryness/Congestion Stop: 07/23/19 18:29 Sucralfate (Carafate Tab) 1 gm PO ACHS JT Stop: 07/23/19 20:59 Last Admin: 07/02/19 09:39 Dose: 1 gm Documented by: Torsemide (Demadex) 20 mg PO DAILY JT Stop: 07/24/19 08:59 Last Admin: 07/02/19 09:40 Dose: 20 mg Documented by: Warfarin Sodium (Coumadin) 4 mg PO HS JT Stop: 07/23/19 20:59 Last Admin: 07/01/19 21:06 Dose: 4 mg Documented by: Mental Health & Subst Abuse Tx Psychiatrist Name of Psychiatrist: Charanjit Candelaria - Dr. Nelson Psychiatrist's Date of Appointment with Psychiatrist: 07/09/19 Time of Appointment with Psychiatrist: 3:10pm Psychiatric Appointment Comment: [address], [address], [place] Therapist Name of Therapist: Annette Cash, private practice in [place], [facility] next Saturday Therapist's Date of Therapist Appointment: 07/06/19 Time of Therapist Appointment: 4pm Therapy Appointment Comment: [address], [address], [place] [address] [place] Name of [facility]bler Mckay: BOZENA Grey Phone Number for [facility]: [phone] Post Discharge Appointments Primary Care Physician Name Of Family Doctor: Dr. Bird Clyde Primary Care Provider Appointment Comment: [address] [place] [address] Neurologist Name of Neurologist: Dr. Blankenship Neurologist's Date of Appointment with Neurologist: 07/08/19 Time of Appointment with Neurologist: 10:45 [facility]ment [facility] [place] Contact Information Discharge Discharge Address: . (1) Bipolar disorder Active/Remission status: currently active Current bipolar episode type: depressed Current episode severity: severe Psychotic features: without psychotic features Qualified Code(s): F31.4 - Bipolar disorder, current episode depressed, severe, without psychotic features
[2019-07-02] MEDS: INSULIN GLARGINE SOLOSTAR 100 UNITS/ML 3 ML PEN SQ SCH (21:02)
[2019-07-02] MEDS: PRAVASTATIN SOD 20 MG TAB PO SCH (21:04)
[2019-07-02] MEDS: WARFARIN SOD 4 MG TAB PO SCH (21:06)
[2019-07-02] MEDS: GABAPENTIN 100 MG CAP PO SCH (21:06)
[2019-07-02] MEDS: ESCITALOPRAM OXALATE 20 MG TAB PO SCH (21:06)
[2019-07-03] MEDS: PROPRANOLOL HCL 60 MG LA CAP PO SCH (09:53)
[2019-07-03] MEDS: TORSEMIDE 10 MG TAB PO SCH (09:53)
[2019-07-03] MEDS: glipiZIDE ER 2.5 MG TABCR PO SCH (09:53)
[2019-07-03] MEDS: SUCRALFATE 1 GM TAB PO SCH ×4 (09:53→22:08)
[2019-07-03] MEDS: LOSARTAN POTASSIUM 50 MG TAB PO SCH (09:53)
--- NOTE | 2019-07-03 09:53 | Psychiatric Progress Note ---
Date of Service July 03, 2019 Impression / Recommendations (1) Bipolar disorder: 06/24 - Continue escitalopram 20 mg, lamotrigine 250 mg at bedtime, and bupropion SR 100 mg twice daily. She was recently switched from citalopram to escitalopram after discussion with her PCP, due to cardiac risk. -Have considered alternative mood stabilizers/medications to target bipolar depression including lithium and atypical antipsychotics, but concerns include multiple unstable medical comorbidities, difficulties with medication adherence, and cognitive impairment. She had worsening tremor on lithium, and side effects with aripiprazole and quetiapine. She has not had a trial of lurasidone, which would be reasonable to consider. I do think there is an [place] II component to her mood symptoms as well, I would like to try addressing current decompensation through nonpharmacologic methods prior to changing medications due to aforementioned concerns. -Care coordinated with her outpatient therapist, Annette Rousseau -next appointment is 07/01/2019 at 10 AM. Recommend referral for a blended case management, to increase supports in her area, and explore options for transportation. 06/25 -Long-standing bipolar diagnosis. No med changes admission and will continue to monitor for another 24 hours before we consider additional pharmacotherapy. Patient unfortunately is a fairly poor historian guarding prior psychiatric treatment. I agree with Dr. Nelson that he does appear likely a long-standing cluster B personality component to her mood instability and feelings of abandonment likely recently exacerbated related to her 's new relationship 06/26 -Due to the severity of her emotional distress, will trial olanzapine 1.25 mg twice daily taken mid day and bedtime for additional mood stabilization/augmentation and off label anxiolysis. This agent was chosen for lower risk for EPS, calming effect profile, and likely quick onset of action. Unfavorably it as a relatively high risk of metabolic side effects and patient does have a history of diabetes and dyslipidemia which was discussed in detail with the patient and she was accepting of this risk. If she does gain weight on the olanzapine this potentially could be a temporary intervention to help her during this transitional time. 06/27 -Increase olanzapine to 2.5 mg p.o. twice daily -will further review treatment history and consider alternative antidepressant options (known prior antidepressant tx: celexa, lexapro, remeron, wellbutrin. depakote, lithium, abilify worsened tremor. seroquel not effective. on lamictal now.) - important to note that mood lability and suicidality dates back to teens 06/28 -Appearing a little more composed on increased olanzapine so far which appears well-tolerated -We will attempt to maximize therapeutic benefit from lamotrigine increasing to 100 mg in the morning and 200 mg at night. Common risks and benefits of that medication were reviewed. Can consider checking a level prior to discharge to see if there is room for further titration. She reports a history of good tolerability of this medication. -As patient's outpatient psychiatrist will be returning tomorrow, I will defer alternative antidepressant choice to her judgment. 06/29 - Having a difficult day today, as patient is attempting to make a decision about her housing options for discharge - Reporting strong feelings of hopelessness, "I don't want to live in this place of feeling anymore" - She is reportedly tolerating medication adjustments and will continue at this time - Continue to assist patient is discharge and safety planning - Family meeting with [id number] and granddaughter was held yesterday 06/30 - Reporting improved mood today, tolerating medication adjustments - Fasting glucose and lipid panel ordered for tomorrow morning to allow for monitoring of metabolic symptoms related to olanzapine initiation - Continue to encourage conversation regarding housing options, patient recognizing it is not ideal for her to be regularly in contact with her ex- 07/01 - Continues to report hopelessness; difficulty moving forward with regard to discharge planning - Fasting glucose and lipid panel reviewed with the patient; all values WNL - Continue to engage patient and family in discharge planning decisions; there is concern from staff regarding patient returning to live with estranged 07/02 - Continue current medication regimen, seemingly having a better morning - Continue to encourage engagement in group programming, focused on taking proactive steps to improve situation 07/03 - Continue current medication regimen, remains overwhelmed with discharge planning - Unable to contract for safety, feeling her discharge plan has too many "unknowns" to be able to ensure safety at home (2) Generalized anxiety disorder: 06/24 -continue SSRI and hydroxyzine 25 mg 3 times daily as needed anxiety. Work on healthy coping skills and ways to manage anxiety. She has benefited from doing daily devotion/journaling before. 07/01 - Continue to work with patient on development of healthy and effective coping strategies - patient stating "I just cannot cope", and may need additional direction regarding use of coping skills (3) Cognitive disorder: 06/24 -has seen a neurologist, Dr. Mayen, in [place]. Had a brain MRI which showed microvascular change, EEG showed evidence of encephalopathy. Cognitive function clearly worsens when she is decompensated psychiatrically, and she was previously on benzodiazepines which have since been tapered off. Her initial MOCA in 11/2018 was 17/30, and in 12/2018 was 23/30. Centrally acting medications had been reduced and anxiety was improved at that time. -Will recheck MOCA here once anxiety is under better control. -Patient agrees not to drive until she has stabilized both medically and psychiatrically. 06/25 -Patient reports she is being followed by neurology in [place]. Presently I am uncertain of most recent neuroimaging results however it appears she has known history of microvascular changes. She certainly has risk factors for cerebrovascular disease. Lower extremity movements have a choreiform character. Consider possibility of late onset Strafford's chorea particularly as family history is unknown related to symptom cluster of chorea, personality change, mood lability, executive dysfunction, mild cognitive impairment. Would be helpful to review if evidence of caudate atrophy on imaging. - requip dose is low however, in combination w/ long standing wellbutrin, consider possibility of contribution to problematic activation 06/26 -Briefly discussed need for continued neurological follow-up and consideration for neuropsych testing which would need to be done as an outpa tient however we can likely make that referral prior to her discharge 07/01 - Will plan to recheck MoCA during admission, but continues to be rather anxious and tearful - increasing likelihood results may not be entirely accurate 07/03 - Will attempt repeat MoCA this afternoon if severity of anxiety seems improved - Pt did express awareness that recommendation at this time is that she not be driving. 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 Work on healthy coping skills (5) Hypercholesterolemia: Continue home dose of TriCor 06/30 - Fasting lipid panel tomorrow morning, as above 07/01 - Fasting lipid panel results reviewed with patient - values WNL (6) Diabetes mellitus: 06/24 - Diabetic diet, continue insulin, consult diabetic pharmacist and educator at patient's request 06/26 - sugars stable 06/30 - Fasting glucose tomorrow morning, as above 07/01 - Fasting glucose reviewed with patient; value WNL 07/03 - Continue glycemic pharmacy management - PCP follow to be scheduled (7) Restless leg syndrome: Continue Requip and gabapentin at bedtime (8) Vitamin D deficiency: Continue supplementation (9) Coronary artery disease: Continue metoprolol XL, Norvasc, propanolol, and Cozaar (10) Warfarin anticoagulation: Continue home dose of Coumadin, and check INR daily. 2.3 on admission, 2.0 today. 06/25 - INR 2.2 06/26 - INR 2.1 06/27 - INR 2.1 06/28 - INR 2.6 06/30 - INR 3.5 - Per anticoagulation protocol, Coumadin should be held when INR is above 3.5 07/02 - INR drawn today - 3.8 - Coumadin to be held per anticoagulation protocol Risk Factors Assessment Male: No : Yes Do You Have Access To A Gun?: No Health Problems: Yes Mental Health Diagnoses: Yes Substance Use Disorders: No Previous Attempt: Yes Family History of Suicide: No Previous Psychiatric Hospitalization: Yes Hopelessness: Yes Smoker: No Protective Factors Assessment Uatsdin Beliefs: Yes : Yes (But and has a new girlfriend) Responsible for Young Children: No Employed: No Stable Relationships: No Supportive Family: Yes Good Rapport with Provider: Yes Interval History Identifying Information MORENA HERNANDEZ is a 73-year-old F who currently lives alone in [place], has a history of bipolar disorder type I, generalized anxiety disorder, cognitive disorder NOS, and dependent and borderline personality traits as well as multiple medical problems including hypertension, hypercholesterolemia, type 2 diabetes, obesity, and stroke who was admitted on 06/23/19 18:30 on a 201 voluntary commitment for worsening mood and suicidal thoughts. Chief Complaint "I didn't sleep a wink last night." Review of Systems Notes Constitutional: reports very poor sleep last evening Cardiovascular: denied Respiratory: denied Gastrointestinal: denied Neurological: denied Psychiatric: denies symptoms other than stated above Total of at least 10 systems reviewed, pertinent positives as above and in HPI. Sleep Information Total Hours of Sleep: 3.75 Sleep Comments: received two doses of hs vistaril for sleep. tearful, fretting about going home Meal Information Percent Meal Consumed - Breakfast: 100 Percent Meal Consumed - Lunch: 100 Percent Meal Consumed - Dinner: 100 Nutrition Comment: per meal log Subjective Subjective Patient was seen & assessed and interval progress reviewed with treatment team. Staff reports the patient continues to be intermittently tearful, excepting of support from peers and staff family remains involved in discharge planning. Patient was seen today to assess progress since admission. She states she "did not sleep a wink last night" and was observed to be laying in bed during our encounter. Pt states that she is "not sure if it was racing thoughts or not, but I just couldn't get the image of my and his girlfriend out of my head." Pt states she is continuing to struggle with the "unknown of the situation." We reviewed that while several aspects of her discharge plan are unpredictable (primarily interactions with ), that there are also several very clear supports that have been added for her use. Pt was reminded of aftercare appointments scheduled, referral for a case picker, and the fact that her family will be coordinating observation within the home after she is discharged. Pt continued to report hopelessness, feeling she is not prepared to return to her living situation despite these improvements in her discharge plan. Today, patient is feeling tired and "overwhelmed." We discussed desire to repeat cognitive testing this afternoon, and patient states, "well I certainly won't be up for that." Pt was encouraged to rest a bit, but then engage in groups in order to prevent isolation today and improve her mood. Pt was agreeable with this. She denied other needs or concerns presently. Physical Exam Psychiatric Orientation: alert, oriented x 3 and cooperative Apperance: appropriately dressed, + disheveled and appeared stated age Eye Contact: + poor eye contact (Spends most of conversation with eyes closed) Motor Behavior: + tremor (Of upper extremities) Observed while laying in bed, left-sided facial droop Speech: normal rate/rhythm/volume of speech (With intermittent sobbing) Affect: + depressed affect, + tearful affect and mood congruent with affect Mood: + depressed mood Thought Process: + perseveration Thought Content: + preoccupation, + cognitive distortions (Likely consistent with underlying personality traits) and + hopelessness Suicidal Thoughts: denies suicidal thoughts Homicidal Thoughts: denies homicidal thoughts Hallucinations: no auditory hallucinations and no visual hallucinations Cognition: attention grossly intact and language grossly intact Insight: + fair insight Judgement: + fair judgement Vital Signs (Past 24 Hours) Last Vital Signs Temp 36.7 C 07/03/19 06:38 Pulse 74 07/03/19 06:38 Resp 18 07/03/19 06:38 BP 132/53 L 07/03/19 06:38 Pulse Ox 97 06/29/19 15:39 Results & Data Laboratory Results Laboratory Results - last 24 hr 07/02/19 07/02/19 07/02/19 12:38 17:09 20:31 POC Glucose 88 81 180 H 07/03/19 07/03/19 08:45 09:14 POC Glucose 68 L* 98 Current Inpatient Medications Current Inpatient Medications: Current Inpatient Medications Al Hydrox/Mg Hydrox/Simethicone (Maalox) 30 ml PO Q4H PRN PRN Reason: GI Upset Stop: 07/23/19 18:29 Last Admin: 06/29/19 15:34 Dose: 30 ml Documented by: Amlodipine Besylate (Norvasc) 5 mg PO BID JT Stop: 07/23/19 20:59 Last Admin: 07/02/19 21:04 Dose: 5 mg Documented by: Bupropion HCl (Wellbutrin-Sr) 100 mg PO BIDM JT Stop: 07/24/19 07:59 Last Admin: 07/02/19 17:25 Dose: 100 mg Documented by: Cyanocobalamin (Vitamin B-12) 1,000 mcg PO DAILY JT Stop: 07/24/19 08:59 Last Admin: 07/02/19 09:41 Dose: 1,000 mcg Documented by: Dextrose (Dextrose 50%) 25 - 50 ml IV UD PRN; Protocol PRN Reason: Hypoglycemia Protocol Stop: 07/23/19 19:44 Ergocalciferol (Vitamin D2) 50,000 units PO Mo@0900 JT Stop: 07/29/19 08:59 Last Admin: 06/29/19 09:41 Dose: 50,000 units Documented by: Escitalopram Oxalate (Lexapro Tab) 20 mg PO HS JT Stop: 07/23/19 20:59 Last Admin: 07/02/19 21:06 Dose: 20 mg Documented by: Fenofibrate (Tricor) 145 mg PO DAILY JT Stop: 07/23/19 19:59 Last Admin: 07/02/19 09:41 Dose: 145 mg Documented by: Gabapentin (Neurontin) 200 mg PO HS [facility] Stop: 07/23/19 20:59 Last Admin: 07/02/19 21:06 Dose: 200 mg Documented by: Glipizide (Glucotrol Extended Rel) 5 mg PO QDB [facility] Stop: 07/24/19 08:59 Last Admin: 07/02/19 09:40 Dose: 5 mg Documented by: Glucagon (Glucagen) 1 mg IM UD PRN; Protocol PRN Reason: Hypoglycemia Protocol Stop: 07/23/19 19:44 Glucose (Glucose 40%) 15 - 30 gm PO UD PRN; Protocol PRN Reason: Hypoglycemia Protocol Stop: 07/23/19 19:44 Glucose (Dex4 Glucose) 4 - 8 tabs PO UD PRN; Protocol PRN Reason: Hypoglycemia Protocol Stop: 07/23/19 19:44 Hydroxyzine HCl (Vistaril) 50 mg PO HSZ PRN PRN Reason: Insomnia Stop: 07/23/19 18:29 Last Admin: 07/02/19 23:31 Dose: 50 mg Documented by: Hydroxyzine HCl (Vistaril) 25 mg PO Q4H PRN PRN Reason: Anxiety Stop: 07/23/19 21:28 Last Admin: 06/29/19 14:04 Dose: 25 mg Documented by: Insulin Glargine (Lantus Solostar Pen) 12 units SQ QPM [facility] Stop: 07/23/19 20:59 Last Admin: 07/02/19 21:02 Dose: 12 units Documented by: Lamotrigine (Lamictal) 200 mg PO HS [facility] Stop: 07/28/19 21:59 Last Admin: 07/02/19 21:06 Dose: 200 mg Documented by: Lamotrigine (Lamictal) 100 mg PO QAM [facility] Stop: 07/28/19 09:44 Last Admin: 07/02/19 09:40 Dose: 100 mg Documented by: Losartan Potassium (Cozaar) 100 mg PO QAM [facility] Stop: 07/24/19 08:59 Last Admin: 07/02/19 09:39 Dose: 100 mg Documented by: Magnesium Hydroxide (Milk Of Magnesia) 30 ml PO DAILY PRN PRN Reason: Constipation Stop: 07/23/19 18:29 Metoprolol Succinate (Toprol Xl) 100 mg PO BID [facility] Stop: 07/23/19 20:59 Last Admin: 07/02/19 21:04 Dose: 100 mg Documented by: Miscellaneous (Carbohydrates For Hypoglycemia) 15 - 30 gm PO UD PRN PRN Reason: Hypoglycemia Treatment Stop: 07/23/19 19:44 Last Admin: 07/03/19 08:54 Dose: 15 gm Documented by: Nitroglycerin (Nitrostat) 0.4 mg SL Q5M PRN PRN Reason: chest pain Stop: 07/23/19 18:33 Olanzapine (Zyprexa) 2.5 mg PO BID JT Stop: 07/27/19 20:59 Last Admin: 07/02/19 21:04 Dose: 2.5 mg Documented by: Pantoprazole Sodium (Protonix) 40 mg PO DAILY JT Stop: 07/24/19 08:59 Last Admin: 07/02/19 09:40 Dose: 40 mg Documented by: Pravastatin Sodium (Pravachol) 20 mg PO QPM JT Stop: 07/23/19 20:59 Last Admin: 07/02/19 21:04 Dose: 20 mg Documented by: Propranolol HCl (Inderal La) 60 mg PO DAILY JT Stop: 07/24/19 08:59 Last Admin: 07/02/19 09:40 Dose: 60 mg Documented by: Ropinirole HCl (Requip) 0.25 mg PO QAM JT Stop: 07/24/19 08:59 Last Admin: 07/02/19 09:41 Dose: 0.25 mg Documented by: Ropinirole HCl (Requip) 0.5 mg PO HS JT Stop: 07/23/19 20:59 Last Admin: 07/02/19 21:06 Dose: 0.5 mg Documented by: Sodium Chloride ([place] Nasal) 1 - 2 sprays NA PRN PRN PRN Reason: Nasal Dryness/Congestion Stop: 07/23/19 18:29 Sucralfate (Carafate Tab) 1 gm PO ACHS JT Stop: 07/23/19 20:59 Last Admin: 07/02/19 21:05 Dose: 1 gm Documented by: Torsemide (Demadex) 20 mg PO DAILY JT Stop: 07/24/19 08:59 Last Admin: 07/02/19 09:40 Dose: 20 mg Documented by: Warfarin Sodium (Coumadin) 4 mg PO HS JT Stop: 07/23/19 20:59 Last Admin: 07/02/19 21:06 Dose: 4 mg Documented by: Mental Health & Subst Abuse Tx Psychiatrist Name of Psychiatrist: Charanjit Candelaria - Dr. Nelson Psychiatrist's Date of Appointment with Psychiatrist: 07/09/19 Time of Appointment with Psychiatrist: 3:10pm Psychiatric Appointment Comment: [address] [facility], [place], [address], [place] Therapist Name of Therapist: Annette Cash, private practice in [place], [facility] next Saturday Therapist's Date of Therapist Appointment: 07/06/19 Time of Therapist Appointment: 4pm Therapy Appointment Comment: [address] [facility], [facility] [address], [place] [phone] Corrective Therapy Aide Teacher Name of Corrective Therapy Aide Teacher: BOZENA Grey Phone Number for Corrective Therapy Aide Teacher: [phone] Case Management Appointment Comment: will call you next week to schedule a time to meet with you at home Post Discharge Appointments Primary Care Physician Name Of Family Doctor: [facility] Date of Appointment with PCP: 07/07/19 Time of Appointment with PCP: 8:30 Provider Appointment Comment: [address] [place] [id number] Neurologist Name of Neurologist: Dr. Blankenship Neurologist's Date of Appointment with Neurologist: 07/08/19 Time of Appointment with Neurologist: 10:45 Neurology Appointment Comment: [address] [facility] [place] Other #1: Name of Aftercare Appointment: [facility], charissa Daniel Phone Number of Aftercare Appointment: [phone] Aftercare Appointment Comment: Fredy will call you and schedule to come out and meet with you Contact Information Discharge Discharge Address: [address] [place] [address] [place] [id number] (1) Bipolar disorder Active/Remission status: currently active Current bipolar episode type: depressed Current episode severity: severe Psychotic features: without psychotic features Qualified Code(s): F31.4 - Bipolar disorder, current episode depressed, severe, without psychotic features
[2019-07-03] MEDS: lamoTRIgine 100 MG TAB PO SCH ×2 (09:54→22:07)
[2019-07-03] MEDS: AMLODIPINE BESYLATE 5 MG TAB PO SCH ×2 (09:54→22:19)
[2019-07-03] MEDS: ROPINIROLE HCL 0.25 MG TABLET PO SCH ×2 (09:54→22:03)
[2019-07-03] MEDS: PANTOprazole 40 MG TAB PO SCH (09:54)
[2019-07-03] MEDS: OLANZAPINE 2.5 MG TAB PO SCH ×2 (09:55→22:09)
[2019-07-03] MEDS: BuPROPion SR 100 MG TABCR PO SCH ×2 (09:55→18:19)
[2019-07-03] MEDS: METOPROLOL SUCC 50MG EXT REL TAB PO SCH ×2 (09:55→22:19)
[2019-07-03] MEDS: CYANOCOBALAMIN 500 MCG TABLET (VITAMIN B-12) PO SCH (09:55)
[2019-07-03] MEDS: FENOFIBRATE NANOCRYSTALLIZED 145 MG TABLET PO SCH (09:55)
[2019-07-03 10:32] LABS: INR 3.5 (0.9-1.1)
[2019-07-03] MEDS: GABAPENTIN 100 MG CAP PO SCH (22:06)
[2019-07-03] MEDS: ESCITALOPRAM OXALATE 20 MG TAB PO SCH (22:06)
[2019-07-03] MEDS: WARFARIN SOD 4 MG TAB PO SCH (22:13)
[2019-07-03] MEDS: PRAVASTATIN SOD 20 MG TAB PO SCH (22:19)
[2019-07-03] MEDS: INSULIN GLARGINE SOLOSTAR 100 UNITS/ML 3 ML PEN SQ SCH (22:21)
[2019-07-04 08:43] LABS: Prothrombin Time 34.9 Seconds (9.0-12.0)
[2019-07-04 09:12] LABS: INR 3.7 (0.9-1.1)
--- NOTE | 2019-07-04 09:16 | Discharge Summary ---
Date of Service July 04, 2019 History of Present Illness see admission H&P Physical Exam Mental Examination see admission H&P and DOD assessment Vital Signs (Past 24 Hours) Last Vital Signs Temp 36.7 C 07/04/19 06:46 Pulse 68 07/04/19 06:47 Resp 18 07/04/19 06:46 BP 114/60 07/04/19 06:47 Pulse Ox 97 06/29/19 15:39 Principal Diagnosis bipolar I disorder, KASHIF Psychiatric Data see daily care summary, note INR 3.7 this am and patient was directed to hold her warfarin tonight and resume her outpatient testing/dosing regimen. Lamictal was increased to 300 mg total daily dose and low dose Zyprexa was added. Reviewed with pateint again at discharge that needs ongoing/fci monitoring as Zyprexa can affect glucose control/metabolic monitoring and can be associated with development of TD. She has restless legs as baseline but no abnormal motor movement were noted at baseline. Day of Discharge Assessment The patient presented as alert and cooperative. The patient was casually dressed and groomed. Eye contact was fair. No psychomotor restlessness or agitation was noted. Speech was fairly articulated. Affect was pleasant but a bit anxious re: discharge and how to relate to her following discharge. Reviewed the plan for ongoing family support. She states they help her with her pill minder as well and voiced good understanding of med changes. The patients mood appeared euthymic. Thought processes were clear, coherent and goal directed without evidence of loose associations or flight of ideas. Thought content/perception was reality based without delusions. The patient denied suicidal and homicidal ideation. The patient denied hallucinations and did not appear to be responding to internal stimuli. Cognition was grossly intact with orientation to person, place and time. Fund of Knowledge/Intelligence were consistent with level of education. Insight and Judgement were improved from what is described on admission and she verbalized safety plan. Transition of Care Transition Of Care Record: was reviewed with the patient Advance Directives Advance Directives Information Provided: Yes Advance Directives: No Mental Health Advance Directive: No Advance Directives on File: No Living Will: No Power of Container Washer: No Advance Directives Reason:: Declines as Mental Health Visit. Risk Factors Assessment Male: No : Yes Do You Have Access To A Gun?: No Health Problems: Yes Mental Health Diagnoses: Yes Substance Use Disorders: No Previous Attempt: Yes Family History of Suicide: No Previous Psychiatric Hospitalization: Yes Hopelessness: Yes Smoker: No Protective Factors Assessment Sabianism Beliefs: Yes : Yes (But and has a new girlfriend) Responsible for Young Children: No Employed: No Stable Relationships: No Supportive Family: Yes Good Rapport with Provider: Yes Tobacco Cessation at Discharge Tobacco Cessation Medication Prescribed at Discharge: Not Applicable/Non-Smoker Total Time Total Time Spent: Greater Than 30 Minutes Total Time Includes: Examination of the patient and Medication Reconciliation Discharge Data Lab Results 06/23/19 06/23/19 06/23/19 15:16 15:16 15:16 WBC RBC Hgb Hct MCV MCH MCHC RDW Std Deviation RDW Coeff of Gacría Plt Count MPV Immature Gran % (Auto) Neut % (Auto) Lymph % (Auto) [place] % (Auto) Eos % (Auto) Baso % (Auto) Immature Gran # (Auto) Neut # (Auto) Lymph # (Auto) [place] # (Auto) Eos # (Auto) Baso # (Auto) PT INR Sodium Potassium Chloride Carbon Dioxide Anion Gap BUN Creatinine Est Cr Clr Drug Dosing Est GFR ( Amer) Est GFR (Non-Af Amer) BUN/Creatinine Ratio Glucose POC Glucose Fasting Glucose Calcium Total Bilirubin AST ALT Alkaline Phosphatase Total Protein Albumin Globulin Albumin/Globulin Ratio Triglycerides Cholesterol LDL Cholesterol, Calc VLDL Cholesterol, Calc HDL Cholesterol Cholesterol/HDL Ratio TSH Urine Color Yellow Urine Appearance Clear Urine pH 5.0 Ur Specific [place] 1.014 Urine Protein Negative Urine Glucose (UA) Negative Urine Ketones Negative Urine Blood Negative Urine Nitrite Negative Urine Bilirubin Negative Urine Urobilinogen Negative Ur Leukocyte Esterase Trace H Urine WBC (Auto) 1-5 Urine RBC (Auto) 0-4 U Hyaline Cast (Auto) 1-5 U Epithel Cells (Auto) 5-10 H Urine Bacteria (Auto) Negative Salicylates Urine Opiates Screen Neg Ur Methadone, Qual Neg Acetaminophen Urine Barbiturates Neg Ur Phencyclidine (PCP) Neg U Amphetamin/Meth Scrn Neg MDMA (Ecstasy) Screen Pos H U MDMA (Ecstasy), Quant REPORT U Benzodiazepines Scrn Neg Ur Cocaine Metabolite Neg U Marijuana (THC) Screen Neg Ethyl Alcohol mg/dL 06/23/19 06/23/19 06/23/19 15:34 15:34 15:34 WBC 7.50 RBC 4.02 L Hgb 11.3 L Hct 34.8 L MCV 86.6 MCH 28.1 MCHC 32.5 RDW Std Deviation 47.9 H RDW Coeff of García 14.9 H Plt Count 358 MPV 9.8 Immature Gran % (Auto) 0.5 Neut % (Auto) 67.6 Lymph % (Auto) 18.4 [place] % (Auto) 9.6 Eos % (Auto) 3.1 Baso % (Auto) 0.8 Immature Gran # (Auto) 0.04 H Neut # (Auto) 5.07 Lymph # (Auto) 1.38 [place] # (Auto) 0.72 H Eos # (Auto) 0.23 Baso # (Auto) 0.06 PT INR Sodium 139 Potassium 3.8 Chloride 104 Carbon Dioxide 27 Anion Gap 8.0 BUN 46 H Creatinine 1.51 H Est Cr Clr Drug Dosing 33.2 Est GFR ( Amer) 39.1 Est GFR (Non-Af Amer) 33.7 BUN/Creatinine Ratio 30.6 H Glucose 107 H POC Glucose Fasting Glucose Calcium 9.9 Total Bilirubin 0.5 AST 12 L ALT 17 Alkaline Phosphatase 59 Total Protein 7.4 Albumin 4.0 Globulin 3.4 Albumin/Globulin Ratio 1.2 Triglycerides Cholesterol LDL Cholesterol, Calc VLDL Cholesterol, Calc HDL Cholesterol Cholesterol/HDL Ratio TSH 2.690 Urine Color Urine Appearance Urine pH Ur Specific [place] Urine Protein Urine Glucose (UA) Urine Ketones Urine Blood Urine Nitrite Urine Bilirubin Urine Urobilinogen Ur Leukocyte Esterase Urine WBC (Auto) Urine RBC (Auto) U Hyaline Cast (Auto) U Epithel Cells (Auto) Urine Bacteria (Auto) Salicylates < 1.7 L Urine Opiates Screen Ur Methadone, Qual Acetaminophen < 2 L Urine Barbiturates Ur Phencyclidine (PCP) U Amphetamin/Meth Scrn MDMA (Ecstasy) Screen U MDMA (Ecstasy), Quant U Benzodiazepines Scrn Ur Cocaine Metabolite U Marijuana (THC) Screen Ethyl Alcohol mg/dL 06/23/19 06/23/19 06/23/19 15:34 15:38 20:50 WBC RBC Hgb Hct MCV MCH MCHC RDW Std Deviation RDW Coeff of García Plt Count MPV Immature Gran % (Auto) Neut % (Auto) Lymph % (Auto) [place] % (Auto) Eos % (Auto) Baso % (Auto) Immature Gran # (Auto) Neut # (Auto) Lymph # (Auto) [place] # (Auto) Eos # (Auto) Baso # (Auto) PT 21.8 H INR 2.3 H Sodium Potassium Chloride Carbon Dioxide Anion Gap BUN Creatinine Est Cr Clr Drug Dosing Est GFR ( Amer) Est GFR (Non-Af Amer) BUN/Creatinine Ratio Glucose POC Glucose 137 H Fasting Glucose Calcium Total Bilirubin AST ALT Alkaline Phosphatase Total Protein Albumin Globulin Albumin/Globulin Ratio Triglycerides Cholesterol LDL Cholesterol, Calc VLDL Cholesterol, Calc HDL Cholesterol Cholesterol/HDL Ratio TSH Urine Color Urine Appearance Urine pH Ur Specific [place] Urine Protein Urine Glucose (UA) Urine Ketones Urine Blood Urine Nitrite Urine Bilirubin Urine Urobilinogen Ur Leukocyte Esterase Urine WBC (Auto) Urine RBC (Auto) U Hyaline Cast (Auto) U Epithel Cells (Auto) Urine Bacteria (Auto) Salicylates Urine Opiates Screen Ur Methadone, Qual Acetaminophen Urine Barbiturates Ur Phencyclidine (PCP) U Amphetamin/Meth Scrn MDMA (Ecstasy) Screen U MDMA (Ecstasy), Quant U Benzodiazepines Scrn Ur Cocaine Metabolite U Marijuana (THC) Screen Ethyl Alcohol mg/dL < 3.0 06/24/19 06/24/19 06/24/19 07:19 08:01 12:40 WBC RBC Hgb Hct MCV MCH MCHC RDW Std Deviation RDW Coeff of García Plt Count MPV Immature Gran % (Auto) Neut % (Auto) Lymph % (Auto) [place] % (Auto) Eos % (Auto) Baso % (Auto) Immature Gran # (Auto) Neut # (Auto) Lymph # (Auto) [place] # (Auto) Eos # (Auto) Baso # (Auto) PT 19.3 H INR 2.0 H Sodium Potassium Chloride Carbon Dioxide Anion Gap BUN Creatinine Est Cr Clr Drug Dosing Est GFR ( Amer) Est GFR (Non-Af Amer) BUN/Creatinine Ratio Glucose POC Glucose 101 H 184 H Fasting Glucose Calcium Total Bilirubin AST ALT Alkaline Phosphatase Total Protein Albumin Globulin Albumin/Globulin Ratio Triglycerides Cholesterol LDL Cholesterol, Calc VLDL Cholesterol, Calc HDL Cholesterol Cholesterol/HDL Ratio TSH Urine Color Urine Appearance Urine pH Ur Specific [place] Urine Protein Urine Glucose (UA) Urine Ketones Urine Blood Urine Nitrite Urine Bilirubin Urine Urobilinogen Ur Leukocyte Esterase Urine WBC (Auto) Urine RBC (Auto) U Hyaline Cast (Auto) U Epithel Cells (Auto) Urine Bacteria (Auto) Salicylates Urine Opiates Screen Ur Methadone, Qual Acetaminophen Urine Barbiturates Ur Phencyclidine (PCP) U Amphetamin/Meth Scrn MDMA (Ecstasy) Screen U MDMA (Ecstasy), Quant U Benzodiazepines Scrn Ur Cocaine Metabolite U Marijuana (THC) Screen Ethyl Alcohol mg/dL 06/24/19 06/24/19 06/25/19 17:22 20:56 06:26 WBC RBC Hgb Hct MCV MCH MCHC RDW Std Deviation RDW Coeff of García Plt Count MPV Immature Gran % (Auto) Neut % (Auto) Lymph % (Auto) [place] % (Auto) Eos % (Auto) Baso % (Auto) Immature Gran # (Auto) Neut # (Auto) Lymph # (Auto) [place] # (Auto) Eos # (Auto) Baso # (Auto) PT 21.1 H INR 2.2 H Sodium Potassium Chloride Carbon Dioxide Anion Gap BUN Creatinine Est Cr Clr Drug Dosing Est GFR ( Amer) Est GFR (Non-Af Amer) BUN/Creatinine Ratio Glucose POC Glucose 196 H 135 H Fasting Glucose Calcium Total Bilirubin AST ALT Alkaline Phosphatase Total Protein Albumin Globulin Albumin/Globulin Ratio Triglycerides Cholesterol LDL Cholesterol, Calc VLDL Cholesterol, Calc HDL Cholesterol Cholesterol/HDL Ratio TSH Urine Color Urine Appearance Urine pH Ur Specific [place] Urine Protein Urine Glucose (UA) Urine Ketones Urine Blood Urine Nitrite Urine Bilirubin Urine Urobilinogen Ur Leukocyte Esterase Urine WBC (Auto) Urine RBC (Auto) U Hyaline Cast (Auto) U Epithel Cells (Auto) Urine Bacteria (Auto) Salicylates Urine Opiates Screen Ur Methadone, Qual Acetaminophen Urine Barbiturates Ur Phencyclidine (PCP) U Amphetamin/Meth Scrn MDMA (Ecstasy) Screen U MDMA (Ecstasy), Quant U Benzodiazepines Scrn Ur Cocaine Metabolite U Marijuana (THC) Screen Ethyl Alcohol mg/dL 06/25/19 06/25/19 06/25/19 08:37 12:06 20:37 WBC RBC Hgb Hct MCV MCH MCHC RDW Std Deviation RDW Coeff of García Plt Count MPV Immature Gran % (Auto) Neut % (Auto) Lymph % (Auto) [place] % (Auto) Eos % (Auto) Baso % (Auto) Immature Gran # (Auto) Neut # (Auto) Lymph # (Auto) [place] # (Auto) Eos # (Auto) Baso # (Auto) PT INR Sodium Potassium Chloride Carbon Dioxide Anion Gap BUN Creatinine Est Cr Clr Drug Dosing Est GFR ( Amer) Est GFR (Non-Af Amer) BUN/Creatinine Ratio Glucose POC Glucose 97 200 H 158 H Fasting Glucose Calcium Total Bilirubin AST ALT Alkaline Phosphatase Total Protein Albumin Globulin Albumin/Globulin Ratio Triglycerides Cholesterol LDL Cholesterol, Calc VLDL Cholesterol, Calc HDL Cholesterol Cholesterol/HDL Ratio TSH Urine Color Urine Appearance Urine pH Ur Specific [place] Urine Protein Urine Glucose (UA) Urine Ketones Urine Blood Urine Nitrite Urine Bilirubin Urine Urobilinogen Ur Leukocyte Esterase Urine WBC (Auto) Urine RBC (Auto) U Hyaline Cast (Auto) U Epithel Cells (Auto) Urine Bacteria (Auto) Salicylates Urine Opiates Screen Ur Methadone, Qual Acetaminophen Urine Barbiturates Ur Phencyclidine (PCP) U Amphetamin/Meth Scrn MDMA (Ecstasy) Screen U MDMA (Ecstasy), Quant U Benzodiazepines Scrn Ur Cocaine Metabolite U Marijuana (THC) Screen Ethyl Alcohol mg/dL 06/26/19 06/26/19 06/26/19 06:50 08:35 12:40 WBC RBC Hgb Hct MCV MCH MCHC RDW Std Deviation RDW Coeff of García Plt Count MPV Immature Gran % (Auto) Neut % (Auto) Lymph % (Auto) [place] % (Auto) Eos % (Auto) Baso % (Auto) Immature Gran # (Auto) Neut # (Auto) Lymph # (Auto) [place] # (Auto) Eos # (Auto) Baso # (Auto) PT 20.6 H INR 2.1 H Sodium Potassium Chloride Carbon Dioxide Anion Gap BUN Creatinine Est Cr Clr Drug Dosing Est GFR ( Amer) Est GFR (Non-Af Amer) BUN/Creatinine Ratio Glucose POC Glucose 77 173 H Fasting Glucose Calcium Total Bilirubin AST ALT Alkaline Phosphatase Total Protein Albumin Globulin Albumin/Globulin Ratio Triglycerides Cholesterol LDL Cholesterol, Calc VLDL Cholesterol, Calc HDL Cholesterol Cholesterol/HDL Ratio TSH Urine Color Urine Appearance Urine pH Ur Specific [place] Urine Protein Urine Glucose (UA) Urine Ketones Urine Blood Urine Nitrite Urine Bilirubin Urine Urobilinogen Ur Leukocyte Esterase Urine WBC (Auto) Urine RBC (Auto) U Hyaline Cast (Auto) U Epithel Cells (Auto) Urine Bacteria (Auto) Salicylates Urine Opiates Screen Ur Methadone, Qual Acetaminophen Urine Barbiturates Ur Phencyclidine (PCP) U Amphetamin/Meth Scrn MDMA (Ecstasy) Screen U MDMA (Ecstasy), Quant U Benzodiazepines Scrn Ur Cocaine Metabolite U Marijuana (THC) Screen Ethyl Alcohol mg/dL 06/26/19 06/26/19 06/27/19 17:12 21:44 08:33 WBC RBC Hgb Hct MCV MCH MCHC RDW Std Deviation RDW Coeff of García Plt Count MPV Immature Gran % (Auto) Neut % (Auto) Lymph % (Auto) [place] % (Auto) Eos % (Auto) Baso % (Auto) Immature Gran # (Auto) Neut # (Auto) Lymph # (Auto) [place] # (Auto) Eos # (Auto) Baso # (Auto) PT INR Sodium Potassium Chloride Carbon Dioxide Anion Gap BUN Creatinine Est Cr Clr Drug Dosing Est GFR ( Amer) Est GFR (Non-Af Amer) BUN/Creatinine Ratio Glucose POC Glucose 105 H 198 H 84 Fasting Glucose Calcium Total Bilirubin AST ALT Alkaline Phosphatase Total Protein Albumin Globulin Albumin/Globulin Ratio Triglycerides Cholesterol LDL Cholesterol, Calc VLDL Cholesterol, Calc HDL Cholesterol Cholesterol/HDL Ratio TSH Urine Color Urine Appearance Urine pH Ur Specific [place] Urine Protein Urine Glucose (UA) Urine Ketones Urine Blood Urine Nitrite Urine Bilirubin Urine Urobilinogen Ur Leukocyte Esterase Urine WBC (Auto) Urine RBC (Auto) U Hyaline Cast (Auto) U Epithel Cells (Auto) Urine Bacteria (Auto) Salicylates Urine Opiates Screen Ur Methadone, Qual Acetaminophen Urine Barbiturates Ur Phencyclidine (PCP) U Amphetamin/Meth Scrn MDMA (Ecstasy) Screen U MDMA (Ecstasy), Quant U Benzodiazepines Scrn Ur Cocaine Metabolite U Marijuana (THC) Screen Ethyl Alcohol mg/dL 06/27/19 06/27/19 06/27/19 12:37 17:17 21:30 WBC RBC Hgb Hct MCV MCH MCHC RDW Std Deviation RDW Coeff of García Plt Count MPV Immature Gran % (Auto) Neut % (Auto) Lymph % (Auto) [place] % (Auto) Eos % (Auto) Baso % (Auto) Immature Gran # (Auto) Neut # (Auto) Lymph # (Auto) [place] # (Auto) Eos # (Auto) Baso # (Auto) PT INR Sodium Potassium Chloride Carbon Dioxide Anion Gap BUN Creatinine Est Cr Clr Drug Dosing Est GFR ( Amer) Est GFR (Non-Af Amer) BUN/Creatinine Ratio Glucose POC Glucose 127 H 166 H 138 H Fasting Glucose Calcium Total Bilirubin AST ALT Alkaline Phosphatase Total Protein Albumin Globulin Albumin/Globulin Ratio Triglycerides Cholesterol LDL Cholesterol, Calc VLDL Cholesterol, Calc HDL Cholesterol Cholesterol/HDL Ratio TSH Urine Color Urine Appearance Urine pH Ur Specific [place] Urine Protein Urine Glucose (UA) Urine Ketones Urine Blood Urine Nitrite Urine Bilirubin Urine Urobilinogen Ur Leukocyte Esterase Urine WBC (Auto) Urine RBC (Auto) U Hyaline Cast (Auto) U Epithel Cells (Auto) Urine Bacteria (Auto) Salicylates Urine Opiates Screen Ur Methadone, Qual Acetaminophen Urine Barbiturates Ur Phencyclidine (PCP) U Amphetamin/Meth Scrn MDMA (Ecstasy) Screen U MDMA (Ecstasy), Quant U Benzodiazepines Scrn Ur Cocaine Metabolite U Marijuana (THC) Screen Ethyl Alcohol mg/dL 06/28/19 06/28/19 06/28/19 06:55 08:21 21:10 WBC RBC Hgb Hct MCV MCH MCHC RDW Std Deviation RDW Coeff of García Plt Count MPV Immature Gran % (Auto) Neut % (Auto) Lymph % (Auto) [place] % (Auto) Eos % (Auto) Baso % (Auto) Immature Gran # (Auto) Neut # (Auto) Lymph # (Auto) [place] # (Auto) Eos # (Auto) Baso # (Auto) PT 25.1 H INR 2.6 H Sodium Potassium Chloride Carbon Dioxide Anion Gap BUN Creatinine Est Cr Clr Drug Dosing Est GFR ( Amer) Est GFR (Non-Af Amer) BUN/Creatinine Ratio Glucose POC Glucose 79 119 H Fasting Glucose Calcium Total Bilirubin AST ALT Alkaline Phosphatase Total Protein Albumin Globulin Albumin/Globulin Ratio Triglycerides Cholesterol LDL Cholesterol, Calc VLDL Cholesterol, Calc HDL Cholesterol Cholesterol/HDL Ratio TSH Urine Color Urine Appearance Urine pH Ur Specific [place] Urine Protein Urine Glucose (UA) Urine Ketones Urine Blood Urine Nitrite Urine Bilirubin Urine Urobilinogen Ur Leukocyte Esterase Urine WBC (Auto) Urine RBC (Auto) U Hyaline Cast (Auto) U Epithel Cells (Auto) Urine Bacteria (Auto) Salicylates Urine Opiates Screen Ur Methadone, Qual Acetaminophen Urine Barbiturates Ur Phencyclidine (PCP) U Amphetamin/Meth Scrn MDMA (Ecstasy) Screen U MDMA (Ecstasy), Quant U Benzodiazepines Scrn Ur Cocaine Metabolite U Marijuana (THC) Screen Ethyl Alcohol mg/dL 06/29/19 06/29/19 06/29/19 08:12 12:37 17:02 WBC RBC Hgb Hct MCV MCH MCHC RDW Std Deviation RDW Coeff of García Plt Count MPV Immature Gran % (Auto) Neut % (Auto) Lymph % (Auto) [place] % (Auto) Eos % (Auto) Baso % (Auto) Immature Gran # (Auto) Neut # (Auto) Lymph # (Auto) [place] # (Auto) Eos # (Auto) Baso # (Auto) PT INR Sodium Potassium Chloride Carbon Dioxide Anion Gap BUN Creatinine Est Cr Clr Drug Dosing Est GFR ( Amer) Est GFR (Non-Af Amer) BUN/Creatinine Ratio Glucose POC Glucose 87 113 H 108 H Fasting Glucose Calcium Total Bilirubin AST ALT Alkaline Phosphatase Total Protein Albumin Globulin Albumin/Globulin Ratio Triglycerides Cholesterol LDL Cholesterol, Calc VLDL Cholesterol, Calc HDL Cholesterol Cholesterol/HDL Ratio TSH Urine Color Urine Appearance Urine pH Ur Specific [place] Urine Protein Urine Glucose (UA) Urine Ketones Urine Blood Urine Nitrite Urine Bilirubin Urine Urobilinogen Ur Leukocyte Esterase Urine WBC (Auto) Urine RBC (Auto) U Hyaline Cast (Auto) U Epithel Cells (Auto) Urine Bacteria (Auto) Salicylates Urine Opiates Screen Ur Methadone, Qual Acetaminophen Urine Barbiturates Ur Phencyclidine (PCP) U Amphetamin/Meth Scrn MDMA (Ecstasy) Screen U MDMA (Ecstasy), Quant U Benzodiazepines Scrn Ur Cocaine Metabolite U Marijuana (THC) Screen Ethyl Alcohol mg/dL 06/29/19 06/30/19 06/30/19 20:37 06:39 07:53 WBC RBC Hgb Hct MCV MCH MCHC RDW Std Deviation RDW Coeff of García Plt Count MPV Immature Gran % (Auto) Neut % (Auto) Lymph % (Auto) [place] % (Auto) Eos % (Auto) Baso % (Auto) Immature Gran # (Auto) Neut # (Auto) Lymph # (Auto) [place] # (Auto) Eos # (Auto) Baso # (Auto) PT 32.5 H INR 3.5 H Sodium Potassium Chloride Carbon Dioxide Anion Gap BUN Creatinine Est Cr Clr Drug Dosing Est GFR ( Amer) Est GFR (Non-Af Amer) BUN/Creatinine Ratio Glucose POC Glucose 156 H 78 Fasting Glucose Calcium Total Bilirubin AST ALT Alkaline Phosphatase Total Protein Albumin Globulin Albumin/Globulin Ratio Triglycerides Cholesterol LDL Cholesterol, Calc VLDL Cholesterol, Calc HDL Cholesterol Cholesterol/HDL Ratio TSH Urine Color Urine Appearance Urine pH Ur Specific [place] Urine Protein Urine Glucose (UA) Urine Ketones Urine Blood Urine Nitrite Urine Bilirubin Urine Urobilinogen Ur Leukocyte Esterase Urine WBC (Auto) Urine RBC (Auto) U Hyaline Cast (Auto) U Epithel Cells (Auto) Urine Bacteria (Auto) Salicylates Urine Opiates Screen Ur Methadone, Qual Acetaminophen Urine Barbiturates Ur Phencyclidine (PCP) U Amphetamin/Meth Scrn MDMA (Ecstasy) Screen U MDMA (Ecstasy), Quant U Benzodiazepines Scrn Ur Cocaine Metabolite U Marijuana (THC) Screen Ethyl Alcohol mg/dL 06/30/19 06/30/19 06/30/19 12:42 17:10 20:53 WBC RBC Hgb Hct MCV MCH MCHC RDW Std Deviation RDW Coeff of García Plt Count MPV Immature Gran % (Auto) Neut % (Auto) Lymph % (Auto) [place] % (Auto) Eos % (Auto) Baso % (Auto) Immature Gran # (Auto) Neut # (Auto) Lymph # (Auto) [place] # (Auto) Eos # (Auto) Baso # (Auto) PT INR Sodium Potassium Chloride Carbon Dioxide Anion Gap BUN Creatinine Est Cr Clr Drug Dosing Est GFR ( Amer) Est GFR (Non-Af Amer) BUN/Creatinine Ratio Glucose POC Glucose 86 249 H 215 H Fasting Glucose Calcium Total Bilirubin AST ALT Alkaline Phosphatase Total Protein Albumin Globulin Albumin/Globulin Ratio Triglycerides Cholesterol LDL Cholesterol, Calc VLDL Cholesterol, Calc HDL Cholesterol Cholesterol/HDL Ratio TSH Urine Color Urine Appearance Urine pH Ur Specific [place] Urine Protein Urine Glucose (UA) Urine Ketones Urine Blood Urine Nitrite Urine Bilirubin Urine Urobilinogen Ur Leukocyte Esterase Urine WBC (Auto) Urine RBC (Auto) U Hyaline Cast (Auto) U Epithel Cells (Auto) Urine Bacteria (Auto) Salicylates Urine Opiates Screen Ur Methadone, Qual Acetaminophen Urine Barbiturates Ur Phencyclidine (PCP) U Amphetamin/Meth Scrn MDMA (Ecstasy) Screen U MDMA (Ecstasy), Quant U Benzodiazepines Scrn Ur Cocaine Metabolite U Marijuana (THC) Screen Ethyl Alcohol mg/dL 07/01/19 07/01/19 07/01/19 07:33 17:05 20:27 WBC RBC Hgb Hct MCV MCH MCHC RDW Std Deviation RDW Coeff of García Plt Count MPV Immature Gran % (Auto) Neut % (Auto) Lymph % (Auto) [place] % (Auto) Eos % (Auto) Baso % (Auto) Immature Gran # (Auto) Neut # (Auto) Lymph # (Auto) [place] # (Auto) Eos # (Auto) Baso # (Auto) PT INR Sodium Potassium Chloride Carbon Dioxide Anion Gap BUN Creatinine Est Cr Clr Drug Dosing Est GFR ( Amer) Est GFR (Non-Af Amer) BUN/Creatinine Ratio Glucose POC Glucose 125 H 237 H Fasting Glucose 87 Calcium Total Bilirubin AST ALT Alkaline Phosphatase Total Protein Albumin Globulin Albumin/Globulin Ratio Triglycerides 140 Cholesterol 120 LDL Cholesterol, Calc 62 VLDL Cholesterol, Calc 28 HDL Cholesterol 30 Cholesterol/HDL Ratio 4 TSH Urine Color Urine Appearance Urine pH Ur Specific [place] Urine Protein Urine Glucose (UA) Urine Ketones Urine Blood Urine Nitrite Urine Bilirubin Urine Urobilinogen Ur Leukocyte Esterase Urine WBC (Auto) Urine RBC (Auto) U Hyaline Cast (Auto) U Epithel Cells (Auto) Urine Bacteria (Auto) Salicylates Urine Opiates Screen Ur Methadone, Qual Acetaminophen Urine Barbiturates Ur Phencyclidine (PCP) U Amphetamin/Meth Scrn MDMA (Ecstasy) Screen U MDMA (Ecstasy), Quant U Benzodiazepines Scrn Ur Cocaine Metabolite U Marijuana (THC) Screen Ethyl Alcohol mg/dL 07/02/19 07/02/19 07/02/19 07:44 08:16 12:38 WBC RBC Hgb Hct MCV MCH MCHC RDW Std Deviation RDW Coeff of García Plt Count MPV Immature Gran % (Auto) Neut % (Auto) Lymph % (Auto) [place] % (Auto) Eos % (Auto) Baso % (Auto) Immature Gran # (Auto) Neut # (Auto) Lymph # (Auto) [place] # (Auto) Eos # (Auto) Baso # (Auto) PT 35.1 H INR 3.8 H Sodium Potassium Chloride Carbon Dioxide Anion Gap BUN Creatinine Est Cr Clr Drug Dosing Est GFR ( Amer) Est GFR (Non-Af Amer) BUN/Creatinine Ratio Glucose POC Glucose 130 H 88 Fasting Glucose Calcium Total Bilirubin AST ALT Alkaline Phosphatase Total Protein Albumin Globulin Albumin/Globulin Ratio Triglycerides Cholesterol LDL Cholesterol, Calc VLDL Cholesterol, Calc HDL Cholesterol Cholesterol/HDL Ratio TSH Urine Color Urine Appearance Urine pH Ur Specific [place] Urine Protein Urine Glucose (UA) Urine Ketones Urine Blood Urine Nitrite Urine Bilirubin Urine Urobilinogen Ur Leukocyte Esterase Urine WBC (Auto) Urine RBC (Auto) U Hyaline Cast (Auto) U Epithel Cells (Auto) Urine Bacteria (Auto) Salicylates Urine Opiates Screen Ur Methadone, Qual Acetaminophen Urine Barbiturates Ur Phencyclidine (PCP) U Amphetamin/Meth Scrn MDMA (Ecstasy) Screen U MDMA (Ecstasy), Quant U Benzodiazepines Scrn Ur Cocaine Metabolite U Marijuana (THC) Screen Ethyl Alcohol mg/dL 07/02/19 07/02/19 07/03/19 17:09 20:31 08:45 WBC RBC Hgb Hct MCV MCH MCHC RDW Std Deviation RDW Coeff of García Plt Count MPV Immature Gran % (Auto) Neut % (Auto) Lymph % (Auto) [place] % (Auto) Eos % (Auto) Baso % (Auto) Immature Gran # (Auto) Neut # (Auto) Lymph # (Auto) [place] # (Auto) Eos # (Auto) Baso # (Auto) PT INR Sodium Potassium Chloride Carbon Dioxide Anion Gap BUN Creatinine Est Cr Clr Drug Dosing Est GFR ( Amer) Est GFR (Non-Af Amer) BUN/Creatinine Ratio Glucose POC Glucose 81 180 H 68 L* Fasting Glucose Calcium Total Bilirubin AST ALT Alkaline Phosphatase Total Protein Albumin Globulin Albumin/Globulin Ratio Triglycerides Cholesterol LDL Cholesterol, Calc VLDL Cholesterol, Calc HDL Cholesterol Cholesterol/HDL Ratio TSH Urine Color Urine Appearance Urine pH Ur Specific [place] Urine Protein Urine Glucose (UA) Urine Ketones Urine Blood Urine Nitrite Urine Bilirubin Urine Urobilinogen Ur Leukocyte Esterase Urine WBC (Auto) Urine RBC (Auto) U Hyaline Cast (Auto) U Epithel Cells (Auto) Urine Bacteria (Auto) Salicylates Urine Opiates Screen Ur Methadone, Qual Acetaminophen Urine Barbiturates Ur Phencyclidine (PCP) U Amphetamin/Meth Scrn MDMA (Ecstasy) Screen U MDMA (Ecstasy), Quant U Benzodiazepines Scrn Ur Cocaine Metabolite U Marijuana (THC) Screen Ethyl Alcohol mg/dL 07/03/19 07/03/19 07/03/19 09:14 09:59 12:49 WBC RBC Hgb Hct MCV MCH MCHC RDW Std Deviation RDW Coeff of García Plt Count MPV Immature Gran % (Auto) Neut % (Auto) Lymph % (Auto) [place] % (Auto) Eos % (Auto) Baso % (Auto) Immature Gran # (Auto) Neut # (Auto) Lymph # (Auto) [place] # (Auto) Eos # (Auto) Baso # (Auto) PT 33.0 H INR 3.5 H Sodium Potassium Chloride Carbon Dioxide Anion Gap BUN Creatinine Est Cr Clr Drug Dosing Est GFR ( Amer) Est GFR (Non-Af Amer) BUN/Creatinine Ratio Glucose POC Glucose 98 127 H Fasting Glucose Calcium Total Bilirubin AST ALT Alkaline Phosphatase Total Protein Albumin Globulin Albumin/Globulin Ratio Triglycerides Cholesterol LDL Cholesterol, Calc VLDL Cholesterol, Calc HDL Cholesterol Cholesterol/HDL Ratio TSH Urine Color Urine Appearance Urine pH Ur Specific [place] Urine Protein Urine Glucose (UA) Urine Ketones Urine Blood Urine Nitrite Urine Bilirubin Urine Urobilinogen Ur Leukocyte Esterase Urine WBC (Auto) Urine RBC (Auto) U Hyaline Cast (Auto) U Epithel Cells (Auto) Urine Bacteria (Auto) Salicylates Urine Opiates Screen Ur Methadone, Qual Acetaminophen Urine Barbiturates Ur Phencyclidine (PCP) U Amphetamin/Meth Scrn MDMA (Ecstasy) Screen U MDMA (Ecstasy), Quant U Benzodiazepines Scrn Ur Cocaine Metabolite U Marijuana (THC) Screen Ethyl Alcohol mg/dL 07/03/19 07/03/19 07/04/19 17:41 20:30 08:00 WBC RBC Hgb Hct MCV MCH MCHC RDW Std Deviation RDW Coeff of García Plt Count MPV Immature Gran % (Auto) Neut % (Auto) Lymph % (Auto) [place] % (Auto) Eos % (Auto) Baso % (Auto) Immature Gran # (Auto) Neut # (Auto) Lymph # (Auto) [place] # (Auto) Eos # (Auto) Baso # (Auto) PT 34.9 H INR 3.7 H Sodium Potassium Chloride Carbon Dioxide Anion Gap BUN Creatinine Est Cr Clr Drug Dosing Est GFR ( Amer) Est GFR (Non-Af Amer) BUN/Creatinine Ratio Glucose POC Glucose 115 H 297 H Fasting Glucose Calcium Total Bilirubin AST ALT Alkaline Phosphatase Total Protein Albumin Globulin Albumin/Globulin Ratio Triglycerides Cholesterol LDL Cholesterol, Calc VLDL Cholesterol, Calc HDL Cholesterol Cholesterol/HDL Ratio TSH Urine Color Urine Appearance Urine pH Ur Specific [place] Urine Protein Urine Glucose (UA) Urine Ketones Urine Blood Urine Nitrite Urine Bilirubin Urine Urobilinogen Ur Leukocyte Esterase Urine WBC (Auto) Urine RBC (Auto) U Hyaline Cast (Auto) U Epithel Cells (Auto) Urine Bacteria (Auto) Salicylates Urine Opiates Screen Ur Methadone, Qual Acetaminophen Urine Barbiturates Ur Phencyclidine (PCP) U Amphetamin/Meth Scrn MDMA (Ecstasy) Screen U MDMA (Ecstasy), Quant U Benzodiazepines Scrn Ur Cocaine Metabolite U Marijuana (THC) Screen Ethyl Alcohol mg/dL 07/04/19 08:22 WBC RBC Hgb Hct MCV MCH MCHC RDW Std Deviation RDW Coeff of García Plt Count MPV Immature Gran % (Auto) Neut % (Auto) Lymph % (Auto) [place] % (Auto) Eos % (Auto) Baso % (Auto) Immature Gran # (Auto) Neut # (Auto) Lymph # (Auto) [place] # (Auto) Eos # (Auto) Baso # (Auto) PT INR Sodium Potassium Chloride Carbon Dioxide Anion Gap BUN Creatinine Est Cr Clr Drug Dosing Est GFR ( Amer) Est GFR (Non-Af Amer) BUN/Creatinine Ratio Glucose POC Glucose 85 Fasting Glucose Calcium Total Bilirubin AST ALT Alkaline Phosphatase Total Protein Albumin Globulin Albumin/Globulin Ratio Triglycerides Cholesterol LDL Cholesterol, Calc VLDL Cholesterol, Calc HDL Cholesterol Cholesterol/HDL Ratio TSH Urine Color Urine Appearance Urine pH Ur Specific [place] Urine Protein Urine Glucose (UA) Urine Ketones Urine Blood Urine Nitrite Urine Bilirubin Urine Urobilinogen Ur Leukocyte Esterase Urine WBC (Auto) Urine RBC (Auto) U Hyaline Cast (Auto) U Epithel Cells (Auto) Urine Bacteria (Auto) Salicylates Urine Opiates Screen Ur Methadone, Qual Acetaminophen Urine Barbiturates Ur Phencyclidine (PCP) U Amphetamin/Meth Scrn MDMA (Ecstasy) Screen U MDMA (Ecstasy), Quant U Benzodiazepines Scrn Ur Cocaine Metabolite U Marijuana (THC) Screen Ethyl Alcohol mg/dL Hospital Course (1) Bipolar disorder: 06/24 - Continue escitalopram 20 mg, lamotrigine 250 mg at bedtime, and bupropion SR 100 mg twice daily. She was recently switched from citalopram to escitalopram after discussion with her PCP, due to cardiac risk. -Have considered alternative mood stabilizers/medications to target bipolar depression including lithium and atypical antipsychotics, but concerns include multiple unstable medical comorbidities, difficulties with medication adherence, and cognitive impairment. She had worsening tremor on lithium, and side effects with aripiprazole and quetiapine. She has not had a trial of lurasidone, which would be reasonable to consider. I do think there is an [place] II component to her mood symptoms as well, I would like to try addressing current decompensation through nonpharmacologic methods prior to changing medications due to aforementioned concerns. -Care coordinated with her outpatient therapist, Annette Rousseau -next appointment is 07/01/2019 at 10 AM. Recommend referral for a blended case management, to increase supports in her area, and explore options for transportation. 06/25 -Long-standing bipolar diagnosis. No med changes admission and will continue to monitor for another 24 hours before we consider additional pharmacotherapy. Patient unfortunately is a fairly poor historian guarding prior psychiatric treatment. I agree with Dr. Nelson that he does appear likely a long-standing cluster B personality component to her mood instability and feelings of abandonment likely recently exacerbated related to her 's new relationship 06/26 -Due to the severity of her emotional distress, will trial olanzapine 1.25 mg twice daily taken mid day and bedtime for additional mood stabilization/augmentation and off label anxiolysis. This agent was chosen for lower risk for EPS, calming effect profile, and likely quick onset of action. Unfavorably it as a relatively high risk of metabolic side effects and patient does have a history of diabetes and dyslipidemia which was discussed in detail with the patient and she was accepting of this risk. If she does gain weight on the olanzapine this potentially could be a temporary intervention to help her during this transitional time. 06/27 -Increase olanzapine to 2.5 mg p.o. twice daily -will further review treatment history and consider alternative antidepressant options (known prior antidepressant tx: celexa, lexapro, remeron, wellbutrin. depakote, lithium, abilify worsened tremor. seroquel not effective. on lamictal now.) - important to note that mood lability and suicidality dates back to teens 06/28 -Appearing a little more composed on increased olanzapine so far which appears well-tolerated -We will attempt to maximize therapeutic benefit from lamotrigine increasing to 100 mg in the morning and 200 mg at night. Common risks and benefits of that medication were reviewed. Can consider checking a level prior to discharge to see if there is room for further titration. She reports a history of good tolerability of this medication. -As patient's outpatient psychiatrist will be returning tomorrow, I will defer alternative antidepressant choice to her judgment. 06/29 - Having a difficult day today, as patient is attempting to make a decision about her housing options for discharge - Reporting strong feelings of hopelessness, "I don't want to live in this place of feeling anymore" - She is reportedly tolerating medication adjustments and will continue at this time - Continue to assist patient is discharge and safety planning - Family meeting with [id number] and granddaughter was held yesterday 06/30 - Reporting improved mood today, tolerating medication adjustments - Fasting glucose and lipid panel ordered for tomorrow morning to allow for monitoring of metabolic symptoms related to olanzapine initiation - Continue to encourage conversation regarding housing options, patient recognizing it is not ideal for her to be regularly in contact with her ex- 07/01 - Continues to report hopelessness; difficulty moving forward with regard to discharge planning - Fasting glucose and lipid panel reviewed with the patient; all values WNL - Continue to engage patient and family in discharge planning decisions; there is concern from staff regarding patient returning to live with estranged 07/02 - Continue current medication regimen, seemingly having a better morning - Continue to encourage engagement in group programming, focused on taking proactive steps to improve situation 07/03 - Continue current medication regimen, remains overwhelmed with discharge planning - Unable to contract for safety, feeling her discharge plan has too many "unknowns" to be able to ensure safety at home (2) Generalized anxiety disorder: 06/24 -continue SSRI and hydroxyzine 25 mg 3 times daily as needed anxiety. Work on healthy coping skills and ways to manage anxiety. She has benefited from doing daily devotion/journaling before. 07/01 - Continue to work with patient on development of healthy and effective coping strategies - patient stating "I just cannot cope", and may need additional direction regarding use of coping skills (3) Cognitive disorder: 06/24 -has seen a neurologist, Dr. Mayen, in [place]. Had a brain MRI which showed microvascular change, EEG showed evidence of encephalopathy. Cognitive function clearly worsens when she is decompensated psychiatrically, and she was previously on benzodiazepines which have since been tapered off. Her initial MOCA in 11/2018 was 17/30, and in 12/2018 was 23/. Centrally acting medications had been reduced and anxiety was improved at that time. -Will recheck MOCA here once anxiety is under better control. -Patient agrees not to drive until she has stabilized both medically and psychiatrically. 06/25 -Patient reports she is being followed by neurology in [place]. Presently I am uncertain of most recent neuroimaging results however it appears she has known history of microvascular changes. She certainly has risk factors for cerebrovascular disease. Lower extremity movements have a choreiform character. Consider possibility of late onset [place]'s chorea particularly as family history is unknown related to symptom cluster of chorea, personality change, mood lability, executive dysfunction, mild cognitive impairment. Would be helpful to review if evidence of caudate atrophy on imaging. - requip dose is low however, in combination w/ long standing wellbutrin, consider possibility of contribution to problematic activation 06/26 -Briefly discussed need for continued neurological follow-up and consideration for neuropsych testing which would need to be done as an outpatient however we can likely make that referral prior to her discharge 07/01 - Will plan to recheck MoCA during admission, but continues to be rather anxious and tearful - increasing likelihood results may not be entirely accurate 07/03 - Will attempt repeat MoCA this afternoon if severity of anxiety seems improved - Pt did express awareness that recommendation at this time is that she not be driving. 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 Work on healthy coping skills (5) Hypercholesterolemia: Continue home dose of TriCor 06/30 - Fasting lipid panel tomorrow morning, as above 07/01 - Fasting lipid panel results reviewed with patient - values WNL (6) Diabetes mellitus: 06/24 - Diabetic diet, continue insulin, consult diabetic pharmacist and educator at patient's request 06/26 - sugars stable 06/30 - Fasting glucose tomorrow morning, as above 07/01 - Fasting glucose reviewed with patient; value WNL 07/03 - Continue glycemic pharmacy management - PCP follow to be scheduled (7) Restless leg syndrome: Continue Requip and gabapentin at bedtime (8) Vitamin D deficiency: Continue supplementation (9) Coronary artery disease: Continue metoprolol XL, Norvasc, propanolol, and Cozaar (10) Warfarin anticoagulation: Continue home dose of Coumadin, and check INR daily. 2.3 on admission, 2.0 today. 06/25 - INR 2.2 06/26 - INR 2.1 06/27 - INR 2.1 06/28 - INR 2.6 06/30 - INR 3.5 - Per anticoagulation protocol, Coumadin should be held when INR is above 3.5 07/02 - INR drawn today - 3.8 - Coumadin to be held per anticoagulation protocol Mental Health & Subst Abuse Tx Psychiatrist [facility] - Dr. Nelson Psychiatrist's Date of Appointment with Psychiatrist: 07/09/19 Time of Appointment with Psychiatrist: 3:10pm Psychiatric Appointment Comment: [address], [address], [place] Therapist Name of Therapist: Annette Cash Therapist's Date of Therapist Appointment: 07/06/19 Time of Therapist Appointment: 4pm Therapy Appointment Comment: [address], [address], [place] [address] [employer] Field Technician Name of Copier [employer] Printer Field Technician: BOZENA Grey Phone Number for [employer] Field Technician: [phone] Date of Appointment with Copier [employer]inter Field Technician: 07/04/19 Time of Appointment with Copier [employer]inter Field Technician: [facility] post discharge Case Management Appointment Comment: will call you next week to schedule a time to meet with you at home Post Discharge Appointments Primary Care Physician Name Of Family Doctor: Dr. Bird [facility] Date of Appointment with PCP: 07/07/19 Time of Appointment with PCP: 8:30 Provider Appointment Comment: [address] [place] [address] Neurologist Name of Neurologist: Dr. Blankenship Neurologist's Date of Appointment with Neurologist: 07/08/19 Time of Appointment with Neurologist: 10:45 [facility]rology [facility]ment [facility] [address] [facility] [place] Smoking Cessation Counseling Tobacco Cessation Medication Prescribed at Discharge: Not Applicable/Non-Smoker Other #1: Name of Aftercare Appointment: [facility], charissa Daniel Phone Number of Aftercare Appointment: [phone] Aftercare Appointment Comment: Fredy will call you and schedule to come out and meet with you Contact Information Discharge Discharge Address: [address] [place] [id number] Discharge Plan Discharge Items Patient Disposition: Home - Self-Care Reason For Visit: BIPOLAR DEPRESSION Discharge Diagnosis: same Condition on Discharge: Good Activity: Resume your previous activity Non-emergency contact: Primary Care Provider and Psychiatrist Call non-emergency contact if: you have any medication questions and your symptoms worsen Follow-up/Referrals: Philippe Bird MD [Primary Care Provider] - Diet: Carb Consistent or DM2 Addtl Attending Provider Instructions: SPECIAL CARE INSTRUCTIONS: 1. Follow through with your scheduled aftercare appointments. If unable to keep an appointment, please call to reschedule. 2. Take your medication only as prescribed. Medication should not be changed or stopped without the approval of your doctor. In the event of worsening symptoms or concerns about side effects, contact your doctor immediately. 3. Utilize new healthy coping skills, anger management skills, and stress management skills learned during your hospitalization. Journal feelings and process them with a support person. Identify stressors or situations that may result in relapse, deterioration or inappropriate behaviors and develop a plan to deal with those issues. 4. If your coping skills are ineffective and you are in crisis, contact your outpatient providers for direction. If unable to reach your providers, please call the CAN HELP LINE AT or go to the closest Emergency Room. 5. Avoid alcohol and un-prescribed drugs. 6. You have been provided with the Mental Health Advance Directives Pamphlet for your review. AFTERCARE APPOINTMENTS: * Please call your insurance company prior to your scheduled appointment to confirm your aftercare providers are covered. Take your insurance information to your appointments. WHO TO CALL AND WHEN: Medical Emergencies: For questions or emergencies related to your hospital stay, please contact the Inpatient Behavioral Health Unit at [phone]. A light air defense artillery crewmember is on-call 18/02 for the Behavioral Health Unit for emergencies At any time you feel your situation is an emergency, you may also call 911 immediately. Your Doctors Instructions noted above were prepared by provider Ryann Ventura MD. Pending Studies at Discharge: No Stand-Alone Forms: My [facility] [employer], Smoking Cessation, Suicide Prevention Resources Medications and DC Order Prescriptions: New lamotrigine [Lamictal] 100 mg tablet See Rx Instructions .ROUTE .COMPLEX Qty: 90 RF: 0 olanzapine 2.5 mg Tablet 2.5 mg PO BID Qty: 60 RF: 0 Continued amlodipine 5 mg tablet 5 mg PO BID Qty: 180 RF: 3 Lantus Solostar U-100 Insulin 100 unit/mL (3 mL) insulin pen 12 units SQ DAILY Qty: 6 RF: 2 pantoprazole 40 mg tablet,delayed release (DR/EC) 40 mg PO DAILY Qty: 30 RF: 2 escitalopram oxalate [Lexapro] 20 mg tablet 20 mg PO HS RF: 0 sucralfate [Carafate] 1 gram tablet 1 gm PO QID RF: 0 nitroglycerin 0.4 mg tablet, sublingual 0.4 mg SL Q5M PRN (Reason: chest pain) Qty: 20 RF: 3 ergocalciferol (vitamin D2) 50,000 unit capsule 50,000 units PO .COMPLEX Qty: 12 RF: 0 bupropion HCl 100 mg tablet sustained-release 12 hr 100 mg PO BID Qty: 60 RF: 0 cyanocobalamin (vitamin B-12) 1,000 mcg tablet extended release 1,000 mcg PO DAILY Qty: 90 RF: 3 losartan 50 mg tablet 100 mg PO QAM RF: 0 torsemide 20 mg tablet 20 mg PO DAILY RF: 0 metoprolol succinate 100 mg tablet extended release 24 hr 100 mg PO BID RF: 0 warfarin 4 mg tablet 4 mg PO HS RF: 0 ropinirole 0.25 mg tablet 0.25 mg PO QAM RF: 0 pravastatin 20 mg tablet 20 mg PO QPM RF: 0 gabapentin 100 mg capsule 200 mg PO HS RF: 0 fenofibrate 160 mg tablet 160 mg PO DAILY RF: 0 propranolol [Inderal LA] 60 mg Capsule,Extended Release 24 Hr 60 mg PO DAILY RF: 0 ropinirole 0.5 mg Tablet 0.5 mg PO HS RF: 0 Discontinued hydroxyzine pamoate [Vistaril] 25 mg capsule 25 mg PO Q6H Qty: 30 RF: 0 glipizide 5 mg tablet extended release 24hr 5 mg PO DAILY Qty: 90 RF: 3 lamotrigine [Lamictal] 100 mg tablet 250 mg PO HS Qty: 75 RF: 2 Discharge Orders: Discharge Order (Routine); Ordered 07/04/19 Ordered By: Ryann Ventura Admission Data Admit Date/Time: 06/23/19 18:30 Attending Provider: Bela Nelson Admit Provider: Philippe Whitt I. Primary Care Provider: Philippe Bird Other Interventions: Discharge Summary Assessment (RN) Last Done: 07/04/19 09:34 PSY Interdisciplinary Discharge Planning Last Done: 07/04/19 09:32 DC Date/Time DO NOT enter until pt leaves facility: 07/04/19 10:10 Coding Level of Care Code 17627 D/C day mgmt > 30 min Diagnoses Bipolar disorder F31.4 Active/Remission status: currently active Current bipolar episode type: depressed Current episode severity: severe Psychotic features: without psychotic features Generalized anxiety disorder F41.1 Cognitive disorder F09 Accentuation of personality traits Z73.1 Hypercholesterolemia E78.00 Diabetes mellitus E11.9 Restless leg syndrome G25.81 Vitamin D deficiency E55.9 Coronary artery disease I25.10 Warfarin anticoagulation Z79.01
[2019-07-04] MEDS: LOSARTAN POTASSIUM 50 MG TAB PO SCH (09:22)
[2019-07-04] MEDS: PROPRANOLOL HCL 60 MG LA CAP PO SCH (09:22)
[2019-07-04] MEDS: TORSEMIDE 10 MG TAB PO SCH (09:22)
[2019-07-04] MEDS: SUCRALFATE 1 GM TAB PO SCH (09:22)
[2019-07-04] MEDS: glipiZIDE ER 2.5 MG TABCR PO SCH (09:22)
[2019-07-04] MEDS: lamoTRIgine 100 MG TAB PO SCH (09:22)
[2019-07-04] MEDS: OLANZAPINE 2.5 MG TAB PO SCH (09:23)
[2019-07-04] MEDS: AMLODIPINE BESYLATE 5 MG TAB PO SCH (09:23)
[2019-07-04] MEDS: PANTOprazole 40 MG TAB PO SCH (09:24)
[2019-07-04] MEDS: FENOFIBRATE NANOCRYSTALLIZED 145 MG TABLET PO SCH (09:24)
[2019-07-04] MEDS: ROPINIROLE HCL 0.25 MG TABLET PO SCH (09:24)
[2019-07-04] MEDS: METOPROLOL SUCC 50MG EXT REL TAB PO SCH (09:24)
[2019-07-04] MEDS: CYANOCOBALAMIN 500 MCG TABLET (VITAMIN B-12) PO SCH (09:25)
[2019-07-04] MEDS: BuPROPion SR 100 MG TABCR PO SCH (09:25)
== END 2019-07-04 10:10 | disposition home or self-care (01) | DRG 885 ==
LOC: ED 14:46 → 3S 18:25